=== PATIENT | female | born 1955 | race Caucasian/White ===

== ENCOUNTER 2019-09-27 06:00 | Outpatient (RCR) | payer MEDICARE, SELFPAY | END 2019-10-27 00:01 | LOC: SPT 06:00 | PROVIDERS: Family Provider Nurse Practitioner Family; Visit Provider Internal Medicine Medical Oncology | DX: I97.2 Postmastectomy lymphedema syndrome (principal) | CPT/HCPCS: 97140 ×10 ==

== ENCOUNTER 2019-10-28 13:47 | Outpatient (RCR) | payer MEDICARE, SELFPAY | END 2019-11-27 23:59 | disposition home or self-care (01) | LOC: SPT 13:47 | PROVIDERS: Family Provider Nurse Practitioner Family; Visit Provider Internal Medicine Medical Oncology | DX: I97.2 Postmastectomy lymphedema syndrome (principal); L03.113 Cellulitis of right upper limb; C50.111 Malignant neoplasm of central portion of right female breast | CPT/HCPCS: 97140 ==

== ENCOUNTER 2019-11-28 06:00 | Outpatient (RCR) | payer MEDICARE, SELFPAY | END 2019-12-26 23:59 | disposition home or self-care (01) | LOC: SPT 06:00 | PROVIDERS: Family Provider Nurse Practitioner Family; Visit Provider Internal Medicine Medical Oncology | DX: I97.2 Postmastectomy lymphedema syndrome (principal); L03.113 Cellulitis of right upper limb; C50.111 Malignant neoplasm of central portion of right female breast | CPT/HCPCS: 97140 ==

== ENCOUNTER 2019-12-27 06:00 | Outpatient (RCR) | payer MEDICARE, SELFPAY | END 2020-01-26 23:59 | disposition home or self-care (01) | LOC: SPT 06:00 | PROVIDERS: Family Provider Nurse Practitioner Family; Visit Provider Internal Medicine Medical Oncology | DX: I97.2 Postmastectomy lymphedema syndrome (principal); L03.113 Cellulitis of right upper limb; C50.111 Malignant neoplasm of central portion of right female breast | CPT/HCPCS: 97140 ==

== ENCOUNTER 2020-01-27 06:00 | Outpatient (RCR) | payer MEDICARE, SELFPAY | END 2020-02-25 23:59 | disposition home or self-care (01) | LOC: SPT 06:00 | PROVIDERS: Family Provider Nurse Practitioner Family; Visit Provider Internal Medicine Medical Oncology | DX: I97.2 Postmastectomy lymphedema syndrome (principal); L03.113 Cellulitis of right upper limb; C50.111 Malignant neoplasm of central portion of right female breast | CPT/HCPCS: 97140 ==

== ENCOUNTER 2020-02-26 06:00 | Outpatient (RCR) | payer MEDICARE, SELFPAY | END 2020-03-27 23:59 | disposition home or self-care (01) | LOC: SPT 06:00 | PROVIDERS: Family Provider Nurse Practitioner Family; Visit Provider Internal Medicine Medical Oncology | DX: I97.2 Postmastectomy lymphedema syndrome (principal); L03.113 Cellulitis of right upper limb; C50.111 Malignant neoplasm of central portion of right female breast | CPT/HCPCS: 97140 ==

== ENCOUNTER 2020-03-28 06:00 | Outpatient (RCR) | payer MEDICARE, SELFPAY | END 2020-04-26 23:59 | disposition home or self-care (01) | LOC: SPT 06:00 | PROVIDERS: PCP Nurse Practitioner Family; Visit Provider Internal Medicine Medical Oncology | DX: I97.2 Postmastectomy lymphedema syndrome (principal); L03.113 Cellulitis of right upper limb; C50.111 Malignant neoplasm of central portion of right female breast | CPT/HCPCS: 97140 ==

== ENCOUNTER 2020-04-27 06:00 | Outpatient (RCR) | payer MEDICARE, SELFPAY | END 2020-05-27 23:59 | disposition home or self-care (01) | LOC: SPT 06:00 | PROVIDERS: PCP Nurse Practitioner Family; Visit Provider Internal Medicine Medical Oncology | DX: C50.111 Malignant neoplasm of central portion of right female breast (principal); L03.113 Cellulitis of right upper limb; I97.2 Postmastectomy lymphedema syndrome | CPT/HCPCS: 97140 ==

== ENCOUNTER 2020-06-01 16:26 | Outpatient (RCR) | payer MEDICARE, SELFPAY | END 2020-06-27 23:59 | disposition home or self-care (01) | LOC: SPT 16:26 | PROVIDERS: PCP Nurse Practitioner Family; Visit Provider Internal Medicine Medical Oncology | DX: I97.2 Postmastectomy lymphedema syndrome (principal) | CPT/HCPCS: 97140 ==

== ENCOUNTER 2020-06-28 06:00 | Outpatient (RCR) | payer MEDICARE, SELFPAY | END 2020-07-27 23:59 | disposition home or self-care (01) | LOC: SPT 06:00 | PROVIDERS: PCP Nurse Practitioner Family; Visit Provider Internal Medicine Medical Oncology | DX: I97.2 Postmastectomy lymphedema syndrome (principal); L03.113 Cellulitis of right upper limb; C50.111 Malignant neoplasm of central portion of right female breast | CPT/HCPCS: 97140 ==

== ENCOUNTER 2021-12-18 13:37 | Outpatient (CLI) | payer MEDICARE, SELFPAY ==
[2021-12-18 14:09] LABS: Basophils # 0.1 10^3/uL (0.0-0.1); Basophils % 0.3 %; Eosinophils # 0.2 10^3/uL (0.0-0.8); Eosinophils % 1.2 %; Hematocrit 42.2 % (37.0-47.0); Hemoglobin 13.5 g/dL (11.5-15.3); Lymphocytes # 3.1 10^3/uL (0.8-4.8); Mean Corpuscular Hemoglobin 27.8 pg (28.0-34.0); Mean Corpuscular Volume 86.8 fl (81-99); Monocytes # 0.9 10^3/uL (0.2-0.9); Monocytes % 5.7 %; Neutrophils # 10.66 10^3/uL (1.8-7.7); Neutrophils % 71.5 %; Nucleated Red Blood Cells % 0 %; Platelet Count 259 10^3/cmm (130-400); Red Blood Count 4.86 10^6/uL (4.1-5.3); Red Cell Distribution Width 13.2 % (12.1-15.1); White Blood Count 14.9 10^3/uL (4.0-10.0)
[2021-12-18 14:28] LABS: Alanine Aminotransferase 19 U/L (0-33); Albumin Level 4.5 g/dL (3.5-5.2); Alkaline Phosphatase 174 IU/L (35-105); Aspartate Amino Transferase 24 U/L (0-32); Blood Urea Nitrogen 19 mg/dL (8-23); Calcium 9.8 mg/dL (8.5-10.5); Carbon Dioxide 23 mmol/L (22-29); Chloride 101 mmol/L (98-107); Globulin 2.7 g/dL (1.3-4.6); Glomerular Filtration Rate 71.5 mL/min (90-130); Glucose 134 mg/dL (65-115); Osmolality Calculated 286 mOsm/kg (285-295); Sodium 136 mmol/L (136-145); Total Bilirubin 0.3 mg/dL (0.15-1.2); Total Protein 7.2 g/dL (6.6-8.7)
[2021-12-18 14:31] LABS: Anion Gap 16.4 (5-19); Potassium 4.4 mmol/L (3.5-5.1)
[2021-12-18] MEDS: sodium chloride 0.9% (100 ml) 100 ML 150 ML (14:51)
--- NOTE | 2021-12-19 16:23 | ONC FU_ITS ---
Dr. Bob Patient Follow-Up Note Patient: Karolina Sears Unit #: [id number]: 1955 Dicatated By: Anders Bob M.D.Date of Visit:Dec 18, 2021 Onc Med Follow-up/Prog Note Chief Complaint: Breast cancer and right arm swelling. 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 She was diagnosed with a ER/NH positive, HER-2/sammy negative multifocal inflammatory right breast carcinoma in November of 2011. She underwent neoadjuvant chemotherapy with dose dense Adriamycin/cyclophosphamide followed by paclitaxel under the care of Dr. Skelton in [facility]. On 07/04/2012 she was taken to OR for right modified radical mastectomy by Dr. Banegas. Her surgical pathology revealed residual multifocal carcinoma with the largest focus of 2.1 cm, involving skin, dermal lymphatics, and perineural invasion. Margins were negative. There was involvement in 2 out of 21 lymph nodes harvested, thus stage IIIB (ypT4b, ypN1a, M0). She subsequently completed 6000 cGy adjuvant radiation treatment in 30 fractions on 10/01/2012. Following the radiation treatment she had delayed reconstruction, but with multiple complications. The reconstructive further surgeries included right BAKARI flap surgery in March 2013, right breast implant placement and a left mastopexy in June 2013, right nipple reconstruction in November of 2013, and a right breast revision with a fat grafting in March of 2014. She began hormonal therapy with exemestane in August of 2012, complicated with significant arthralgias. Her treatment was subsequently switched to anastrozole 1 mg daily in January 2013. She was first seen by Dr. Rico on 10/08/2014. Her tumor markers were not elevated at CA 15-3 18.8, CA 27-29 34.9. She continued anastrozole. An MRI of the head on 10/27/2014 showed no evidence of metastatic disease, although it was performed without contrast as patient reported IV contrast allergy. Chest x-ray showed increased interstitial markings in the right upper lobe on 10/25/2014. Followup DEXA showed worsening osteopenia, T score of -2.2. She had significant vitamin D deficiency. For worsening osteopenia she received Prolia in April 2015, complicated with severe rash. She began treatment with Fosamax following her office visit in February 2017. I had seen her for a scheduled follow-up visit on 04/02/2018. At that point she had completed 5 years of adjuvant hormonal therapy with no evidence of recurrence of the breast cancer. As she was still at significant risk for recurrence of her breast cancer and as she was tolerating the anastrozole well, I had recommended that she continue her treatment. However, in September 2018 the anastrozole was stopped due to a skin eruption. She then began a trial of therapy with tamoxifen, but it also had to be stopped due to side effects. She was then followed on observation/expectant management. As of her scheduled visit on 02/03/2019 she was doing well clinically with no evidence of recurrence of the breast cancer. In June 2019 she was seen with evidence of cellulitis in the right arm, which was successfully managed with outpatient IV antibiotic therapy (ertapenem). There was no evidence of recurrence of the breast cancer. She is seen today for an unplanned visit. She had called this morning with complaints of recurrent swelling and redness in the right arm. It first started around 6 PM last evening. She has been having pain in the right arm and axillary area. She did not record her temperature, but she felt warm and she has had intermittent chills and sweating. Her energy generally has been pretty good, and she has had normal activity. ECOG score is 0. Her appetite has been good. She otherwise has not had fever, night sweats, or hot flashes. She has not had sore mouth or throat. She recently had a cough attributable to a slight cold, but that is getting better. She does not complain of shortness of breath or chest pain. She has no GI or complaints. She also reports having some pain in the low back and hip joints, but she has had that off and on for at least a month. She has had a slight headache today. She has no focal neurologic symptoms. Medications: Alendronate Sodium 1 Tablet (of 70 mg) Oral q 1 week, Collagen 2 tsp Powder Topical daily, Multivitamins 1 Capsule Oral daily, [place] 3 1 Capsule Oral daily, silver salt 1 tbsp Liquid every am, Simvastatin 1 Tablet (of 10 mg) Oral at bedtime, Vitamin D 1 Capsule Oral daily Allergies: Gabapentin, Morphine, PCN, and Wheat and Soy. Vital Signs: Performed on Dec 18, 2021 15:34 Height - 60.00 in Temperature - 99.0 F (HIGH) Pulse - 85 /min Respiration - 17 /min BP - 120/69 mm(hg) O2 Sat - 97 % Pain - 0 Fatigue - 0 Performed on Dec 18, 2021 14:45 Height - 60.00 in Temperature - 99.6 F (HIGH) Pulse - 88 /min Respiration - 16 /min BP - 121/70 mm(hg) O2 Sat - 98 % Pain - 9 Fatigue - 3 Physical Examination: Constitutional - She does not appear acutely ill, Eyes - Sclerae nonicteric. Conjunctivae clear, ENMT - No lesions noted in the oral cavity, Hematologic/Lymphatic - No cervical or clavicular adenopathy, Respiratory - Lungs sound clear with good air movement bilaterally, Cardiovascular - Heart rhythm is regular. There is a no murmur, gallop, or rub noted, Breasts - There is some tenderness in the right chest wall and axillary area. There is swelling and erythema of the right arm extending down to the hand. There is no axillary adenopathy, Abdomen - Soft. Liver and spleen are not enlarged. There is no abdominal mass or ascites noted and there is no inguinal adenopathy, Extremities - There is no lower extremity edema, Neurologic - No focal neurologic deficits noted. Lab/Imaging: CBC shows elevated white blood cell count at 14,900 with hemoglobin 13.5 g and platelet count 259,000. Comprehensive metabolic profile shows normal renal function with BUN nineteen and creatinine 0.8 mg/dL. Alkaline phosphatase is mildly elevated at 174/105 IUs/L. The bilirubin and the other liver enzymes are normal. Problem List: 1. Multifocal inflammatory carcinoma of the right breast, stage IIIB (ypT4b, ypN1a, M0), ER/NH positive and HER-2/sammy negative. 2. During follow-up she has required treatment for postmastectomy lymphedema/cellulitis of the right arm. 3. Osteopenia. 4. Vitamin D deficiency. Problems Addressed with this Encounter and Plan: 1. 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 She underwent neoadjuvant chemotherapy with dose dense Adriamycin/cyclophosphamide followed by paclitaxel. She underwent right modified radical mastectomy on 07/04/2012. She was then given radiation to the right chest wall, completed in September of 2012 to 6000 cGy. She began hormonal therapy with exemestane in August of 2012. It was subsequently changed to anastrozole 1 mg daily in January 2013 due to joint pain. As of March 2018 she had completed 5 years of adjuvant hormonal therapy with anastrozole with no evidence of recurrence of the breast cancer. As she was still at significant risk and she was tolerating it well, I did have her continue extended adjuvant hormonal therapy. However, the anastrozole was stopped in September 2018 due to development of skin eruption. She then began further adjuvant hormonal therapy with tamoxifen, but it was stopped within a short time due to multiple side effects. She was then followed on observation/expectant management. Thus far during follow-up there has been no evidence of recurrence of the breast cancer. 2. During follow-up she has required treatment for postmastectomy lymphedema/cellulitis of the right arm. She presents now with acute erythema and swelling of the right arm, consistent with recurrent cellulitis. She will again be treated with IV ertapenem, 1 g daily. She will be transitioned to oral antibiotic therapy with clinical evidence of sufficient response. Signed By: Anders Bob M.D. <<Signature on File>>
== END 2021-12-18 13:38 | disposition home or self-care (01) ==
PROVIDERS: PCP Nurse Practitioner Family; Visit Provider Internal Medicine Medical Oncology
DX: C50.811 Malignant neoplasm of overlapping sites of right female breast (principal); Z17.0 Estrogen receptor positive status [ER+]; Z90.11 Acquired absence of right breast and nipple; M85.80 Other specified disorders of bone density and structure, unspecified site; E55.9 Vitamin D deficiency, unspecified; Z79.899 Other long term (current) drug therapy; Z79.818 Long term (current) use of other agents affecting estrogen receptors and estrogen levels; Z79.2 Long term (current) use of antibiotics
CPT/HCPCS: 80053; 85025; 96365; 99215; J1335

== ENCOUNTER 2021-12-19 13:50 | Outpatient (CLI) | payer MEDICARE, SELFPAY | END 2021-12-19 13:51 | disposition home or self-care (01) | LOC: ONCMED 13:52 | PROVIDERS: PCP Nurse Practitioner Family; Visit Provider Internal Medicine Medical Oncology | DX: I97.2 Postmastectomy lymphedema syndrome (principal); L03.113 Cellulitis of right upper limb; C50.111 Malignant neoplasm of central portion of right female breast; Z90.11 Acquired absence of right breast and nipple; Z92.3 Personal history of irradiation; Z79.899 Other long term (current) drug therapy | CPT/HCPCS: 96365; J1335 ==

== ENCOUNTER 2021-12-20 09:51 | Outpatient (CLI) | payer MEDICARE, SELFPAY | END 2021-12-20 09:52 | disposition home or self-care (01) | LOC: ONCMED 09:56 | PROVIDERS: PCP Nurse Practitioner Family; Visit Provider Internal Medicine Medical Oncology | DX: I97.2 Postmastectomy lymphedema syndrome (principal); L03.113 Cellulitis of right upper limb; C50.111 Malignant neoplasm of central portion of right female breast; Z90.11 Acquired absence of right breast and nipple; Z92.3 Personal history of irradiation; Z79.899 Other long term (current) drug therapy | CPT/HCPCS: 96365; J1335 ==

== ENCOUNTER 2021-12-24 10:00 | Outpatient (RCR) | payer MEDICARE, SELFPAY ==
[2021-12-21] MEDS: ertapenem 1,000 MG in sodium chloride 0.9% (plus) 100 ML 200 MG IV (09:37)
[2021-12-21 09:45] VITALS: BP 141/88; PULSE 80; RESP 18; TEMP 36.5; O2SAT 98
[2021-12-22 09:42] VITALS: BP 138/71; PULSE 109; RESP 18; TEMP 36.2; O2SAT 96
[2021-12-23 10:19] VITALS: BP 146/78; PULSE 77; RESP 16; TEMP 36.2; O2SAT 100
[2021-12-24 10:06] VITALS: BP 135/94; PULSE 98; RESP 16; TEMP 36.8; O2SAT 99
== END 2021-12-25 23:59 | disposition home or self-care (01) ==
LOC: GILAB 10:00
PROVIDERS: PCP Nurse Practitioner Family; Visit Provider Internal Medicine Medical Oncology
DX: I97.2 Postmastectomy lymphedema syndrome (principal); L03.113 Cellulitis of right upper limb; C50.111 Malignant neoplasm of central portion of right female breast; Z90.11 Acquired absence of right breast and nipple; Z92.3 Personal history of irradiation
CPT/HCPCS: 96365; J1335

== ENCOUNTER 2022-01-01 08:13 | Outpatient (CLI) | payer MEDICARE, SELFPAY ==
--- NOTE | 2022-01-01 10:57 | ONC FU_ITS ---
Dr. Bob Patient Follow-Up Note Patient: Karolina Sears Unit #: [id number]: 1955 Dicatated By: Anders Bob M.D.Date of Visit:Jan 01, 2022 Onc Med Follow-up/Prog Note Chief Complaint: Breast cancer/left hip pain. 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 She was diagnosed with a ER/WV positive, HER-2/sammy negative multifocal inflammatory right breast carcinoma in November of 2011. She underwent neoadjuvant chemotherapy with dose dense Adriamycin/cyclophosphamide followed by paclitaxel under the care of Dr. Skelton in [facility]. On 07/04/2012 she was taken to OR for right modified radical mastectomy by Dr. Banegas. Her surgical pathology revealed residual multifocal carcinoma with the largest focus of 2.1 cm, involving skin, dermal lymphatics, and perineural invasion. Margins were negative. There was involvement in 2 out of 21 lymph nodes harvested, thus stage IIIB (ypT4b, ypN1a, M0). She subsequently completed 6000 cGy adjuvant radiation treatment in 30 fractions on 10/01/2012. Following the radiation treatment she had delayed reconstruction, but with multiple complications. The reconstructive further surgeries included right BAKARI flap surgery in March 2013, right breast implant placement and a left mastopexy in June 2013, right nipple reconstruction in November of 2013, and a right breast revision with a fat grafting in March of 2014. She began hormonal therapy with exemestane in August of 2012, complicated with significant arthralgias. Her treatment was subsequently switched to anastrozole 1 mg daily in January 2013. She was first seen by Dr. Rico on 10/08/2014. Her tumor markers were not elevated at CA 15-3 18.8, CA 27-29 34.9. She continued anastrozole. An MRI of the head on 10/27/2014 showed no evidence of metastatic disease, although it was performed without contrast as patient reported IV contrast allergy. Chest x-ray showed increased interstitial markings in the right upper lobe on 10/25/2014. Followup DEXA showed worsening osteopenia, T score of -2.2. She had significant vitamin D deficiency. For worsening osteopenia she received Prolia in April 2015, complicated with severe rash. She began treatment with Fosamax following her office visit in February 2017. I had seen her for a scheduled follow-up visit on 04/02/2018. At that point she had completed 5 years of adjuvant hormonal therapy with no evidence of recurrence of the breast cancer. As she was still at significant risk for recurrence of her breast cancer and as she was tolerating the anastrozole well, I had recommended that she continue her treatment. However, in September 2018 the anastrozole was stopped due to a skin eruption. She then began a trial of therapy with tamoxifen, but it also had to be stopped due to side effects. She was then followed on observation/expectant management. As of her scheduled visit on 02/03/2019 she was doing well clinically with no evidence of recurrence of the breast cancer. In June 2019 she was seen with evidence of cellulitis in the right arm, which was successfully managed with outpatient IV antibiotic therapy (ertapenem). There was no evidence of recurrence of the breast cancer. On 12/18/2021 she returned with another acute episode of cellulitis in the right chest wall and right arm. Associated with that illness, there was significant worsening of the lymphedema in her right arm. She was again treated with outpatient IV antibiotic therapy with ertapenem. She is seen now for a follow-up visit. The cellulitis improved on the antibiotic therapy, but she continues to have significant swelling and discomfort in the right arm. Her main complaint today is that she has developed horrific pain in her left hip which radiates all the way down her left leg. She is having a little tingling in the left leg as well. Her hip pain does seem to localize to the sacroiliac area. She has no other joint or bone pain, and she has otherwise been feeling good generally. Medications: Alendronate Sodium 1 Tablet (of 70 mg) Oral q 1 week, Collagen 2 tsp Powder Topical daily, Multivitamins 1 Capsule Oral daily, [place] 3 1 Capsule Oral daily, silver salt 1 tbsp Liquid every am, Simvastatin 1 Tablet (of 10 mg) Oral at bedtime, Vitamin D 1 Capsule Oral daily Allergies: Gabapentin, Morphine, PCN, and Wheat and Soy. Vital Signs: Performed on Jan 01, 2022 08:29 Height - 60.00 in Weight - 136.8 lbs (LOW) BSA - 1.59 sq.m BMI - 26.72 Temperature - 99.0 F (HIGH) Pulse - 116 /min (HIGH) Respiration - 20 /min BP - 169/91 mm(hg) (HIGH) O2 Sat - 98 % Pain - 9 Fatigue - 5 Physical Examination: Constitutional - She looks pretty good generally, Eyes - Sclerae nonicteric. Conjunctivae clear, ENMT - No lesions noted in the oral cavity, Hematologic/Lymphatic - No cervical, clavicular, or axillary adenopathy, Respiratory - Lungs sound clear with good air movement bilaterally, Cardiovascular - Heart rhythm is regular. There is a no murmur, gallop, or rub noted, Abdomen - Soft. Liver and spleen are not enlarged. There is no abdominal mass or ascites noted and there is no inguinal adenopathy, Extremities - There is significant lymphedema of the right arm. There is no lower extremity edema, Integumentary - There has been complete resolution of the right chest wall and right arm erythema, Neurologic - No focal neurologic deficits noted. Lab/Imaging: Test performed on Dec 18, 2021 14:00 Sodium 136 mmol/L Potassium 4.4 mmol/L Chloride 101 mmol/L CO2 23 mmol/L Anion Gap 16.4 BUN 19 mg/dL Creatinine 0.8 mg/dL Cr Clearance (Est) 70.2700 mL/min eGFR 71.5 mL/min Glucose 134 mg/dL Osmolality - Calculated 286 mOsm/kg Calcium 9.8 mg/dL Protein, Total 7.2 g/dL Albumin 4.5 g/dL Globulin 2.7 g/dL Bilirubin, Total 0.3 mg/dL ALT (SGPT) 19 U/L AST (SGOT) 24 U/L Alkaline Phosphatase 174 IU/L WBC 14.9 10 3/uL RBC 4.86 10 6/uL HGB 13.5 g/dL HCT 42.2 % MCV 86.8 fl MCH 27.8 pg MCHC 32.0 g/dL RDW 13.2 % Platelet Count 259 10 3/cmm MPV 11.0 fL Neutrophils 10.66 10 3/uL Lymphocytes 3.1 10 3/uL Monocytes 0.9 10 3/uL Eosinophils 0.2 10 3/uL Basophils 0.1 10 3/uL Neutrophil % 71.5 % Lymphocyte % 21.0 % Monocyte % 5.7 % Eosinophil % 1.2 % Basophils % 0.3 % NRBC % 0 % Problem List: 1. Multifocal inflammatory carcinoma of the right breast, stage IIIB (ypT4b, ypN1a, M0), ER/[place] positive and HER-2/sammy negative. 2. During follow-up she has required treatment for postmastectomy lymphedema/cellulitis of the right arm. 3. Osteopenia. 4. Vitamin D deficiency. Problems Addressed with this Encounter and Plan: 1. 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 She underwent neoadjuvant chemotherapy with dose dense Adriamycin/cyclophosphamide followed by paclitaxel. She underwent right modified radical mastectomy on 07/04/2012. She was then given radiation to the right chest wall, completed in September of 2012 to 6000 cGy. She was given adjuvant hormonal therapy, initially with exemestane and subsequently with anastrozole. It was eventually stopped in September 2018 due to skin eruption. Thus far during follow-up there has been no evidence of recurrence of the breast cancer. 2. During follow-up she has required treatment for postmastectomy lymphedema of the right arm, and she has had occasional episodes of cellulitis, most recently on 12/18/2021. The cellulitis has resolved on antibiotic therapy with ertapenem. There has been some increase in lymphedema with this episode, and she will now be scheduled to see physical therapy for lymphedema management. 3. She has recent onset of pretty severe pain in the left sciatic area rating down the left leg. Clinically this appears consistent with acute sciatica. She will be treated with meloxicam 15 mg daily and she also will be given a prescription for hydrocodone 5/APAP 325 to take as needed. I will ask physical therapy to also address that issue. Signed By: Anders Bob M.D. <<Signature on File>>
== END 2022-01-01 08:14 | disposition home or self-care (01) ==
LOC: ONCMED 08:19
PROVIDERS: PCP Nurse Practitioner Family; Visit Provider Internal Medicine Medical Oncology
DX: Z85.3 Personal history of malignant neoplasm of breast (principal); I97.2 Postmastectomy lymphedema syndrome; M85.80 Other specified disorders of bone density and structure, unspecified site; E55.9 Vitamin D deficiency, unspecified; L03.113 Cellulitis of right upper limb; M54.32 Sciatica, left side; Z79.899 Other long term (current) drug therapy
CPT/HCPCS: 99214

== ENCOUNTER 2022-01-04 06:00 | Outpatient (RCR) | payer MEDICARE, SELFPAY | END 2022-01-25 23:59 | disposition home or self-care (01) | LOC: SPT 06:00 | PROVIDERS: PCP Nurse Practitioner Family; Referring Provider Internal Medicine Medical Oncology; Visit Provider Internal Medicine Medical Oncology | DX: I89.0 Lymphedema, not elsewhere classified (principal); M54.30 Sciatica, unspecified side | CPT/HCPCS: 97012; 97110; 97140; 97162; G0283 ==

== ENCOUNTER 2022-01-23 15:07 | Outpatient (CLI) | payer MEDICARE, SELFPAY ==
--- NOTE | 2022-01-24 07:33 | ONC FU_ITS ---
Dr. Bob Patient Follow-Up Note Patient: Karolina Sears Unit #: [id number]: 1955 Dicatated By: Anders Bob M.D.Date of Visit:Jan 23, 2022 Onc Med Follow-up/Prog Note Chief Complaint: Breast cancer/left hip pain. 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 She was diagnosed with a ER/MT positive, HER-2/sammy negative multifocal inflammatory right breast carcinoma in November of 2011. She underwent neoadjuvant chemotherapy with dose dense Adriamycin/cyclophosphamide followed by paclitaxel under the care of Dr. Skelton in [facility]. On 07/04/2012 she was taken to OR for right modified radical mastectomy by Dr. Banegas. Her surgical pathology revealed residual multifocal carcinoma with the largest focus of 2.1 cm, involving skin, dermal lymphatics, and perineural invasion. Margins were negative. There was involvement in 2 out of 21 lymph nodes harvested, thus stage IIIB (ypT4b, ypN1a, M0). She subsequently completed 6000 cGy adjuvant radiation treatment in 30 fractions on 10/01/2012. Following the radiation treatment she had delayed reconstruction, but with multiple complications. The reconstructive further surgeries included right BAKARI flap surgery in March 2013, right breast implant placement and a left mastopexy in June 2013, right nipple reconstruction in November of 2013, and a right breast revision with a fat grafting in March of 2014. She began hormonal therapy with exemestane in August of 2012, complicated with significant arthralgias. Her treatment was subsequently switched to anastrozole 1 mg daily in January 2013. She was first seen by Dr. Rico on 10/08/2014. Her tumor markers were not elevated at CA 15-3 18.8, CA 27-29 34.9. She continued anastrozole. An MRI of the head on 10/27/2014 showed no evidence of metastatic disease, although it was performed without contrast as patient reported IV contrast allergy. Chest x-ray showed increased interstitial markings in the right upper lobe on 10/25/2014. Followup DEXA showed worsening osteopenia, T score of -2.2. She had significant vitamin D deficiency. For worsening osteopenia she received Prolia in April 2015, complicated with severe rash. She began treatment with Fosamax following her office visit in February 2017. I had seen her for a scheduled follow-up visit on 04/02/2018. At that point she had completed 5 years of adjuvant hormonal therapy with no evidence of recurrence of the breast cancer. As she was still at significant risk for recurrence of her breast cancer and as she was tolerating the anastrozole well, I had recommended that she continue her treatment. However, in September 2018 the anastrozole was stopped due to a skin eruption. She then began a trial of therapy with tamoxifen, but it also had to be stopped due to side effects. She was then followed on observation/expectant management. As of her scheduled visit on 02/03/2019 she was doing well clinically with no evidence of recurrence of the breast cancer. In June 2019 she was seen with evidence of cellulitis in the right arm, which was successfully managed with outpatient IV antibiotic therapy (ertapenem). There was no evidence of recurrence of the breast cancer. On 12/18/2021 she returned with another acute episode of cellulitis in the right chest wall and right arm. Associated with that illness, there was significant worsening of the lymphedema in her right arm. She was again treated with outpatient IV antibiotic therapy with ertapenem. At her follow-up visit on 01/01/2022 there was significant improvement in the cellulitis, and the lymphedema also was showing some improvement. However, at that point she had developed significant pain in the left hip area rating down the left leg. The hip pain appeared to localize to the sciatic area, and I had suspected that it was due to sacroiliitis. She began treatment with meloxicam 15 mg daily. She also was given a prescription for hydrocodone/APAP to take as needed. She is seen for a follow-up visit. She has been getting physical therapy for the lymphedema, and it has continued to gradually improve. She is still having some pain in the left hip/left leg, described mostly as a dull ache, though it does intensify when she is lying in bed at night. She has been getting some benefit with physical therapy, and it seems more likely now that it may be a radicular pain as opposed to a sacroiliac pain. She is still taking some pain medication, but she has been able to cut down the hydrocodone/APAP to 3 tablets/day. Medications: Alendronate Sodium 1 Tablet (of 70 mg) Oral q 1 week, Collagen 2 tsp Powder Topical daily, Multivitamins 1 Capsule Oral daily, [place] 3 1 Capsule Oral daily, silver salt 1 tbsp Liquid every am, Simvastatin 1 Tablet (of 10 mg) Oral at bedtime, Vitamin D 1 Capsule Oral daily Allergies: Gabapentin, Morphine, PCN, and Wheat and Soy. Vital Signs: Performed on Jan 23, 2022 15:22 Height - 60.00 in Weight - 136.8 lbs BSA - 1.59 sq.m BMI - 26.72 Temperature - 96.9 F (LOW) Pulse - 78 /min Respiration - 15 /min BP - 127/83 mm(hg) O2 Sat - 98 % Pain - 5 Fatigue - 0 Physical Examination: Constitutional - She looks pretty good generally, Extremities - There is some residual lymphedema of the right arm, but it has improved, and the erythema has resolved. There is no lower extremity edema, Neurologic - There is no focal neurologic deficit. Problem List: 1. Multifocal inflammatory carcinoma of the right breast, stage IIIB (ypT4b, ypN1a, M0), ER/MT positive and HER-2/sammy negative. 2. During follow-up she has required treatment for postmastectomy lymphedema/cellulitis of the right arm. 3. Osteopenia. 4. Vitamin D deficiency. Problems Addressed with this Encounter and Plan: 1. 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 She underwent neoadjuvant chemotherapy with dose dense Adriamycin/cyclophosphamide followed by paclitaxel. She underwent right modified radical mastectomy on 07/04/2012. She was then given radiation to the right chest wall, completed in September of 2012 to 6000 cGy. She was given adjuvant hormonal therapy, initially with exemestane and subsequently with anastrozole. It was eventually stopped in September 2018 due to skin eruption. Thus far during follow-up there has been no evidence of recurrence of the breast cancer. 2. During follow-up she has required treatment for postmastectomy lymphedema of the right arm, and she has had occasional episodes of cellulitis, most recently on 12/18/2021. The cellulitis has resolved on antibiotic therapy with ertapenem. She is now continuing physical therapy for the lymphedema, which is showing gradual improvement. 3. She had recent onset of pretty severe pain in the left sciatic area rating down the left leg. I had initially suspected that she had acute sciatica. She has been showing some improvement on treatment with meloxicam 15 mg daily, hydrocodone 5/APAP 325 as needed, and physical therapy, though it does seem more likely now that it may be a radicular pain. At least for now she will continue with her same management. I will see her for a follow-up visit in 1 month, and she will then have further evaluation as indicated. Signed By: Anders Bob M.D. <<Signature on File>>
== END 2022-01-23 15:08 | disposition home or self-care (01) ==
PROVIDERS: PCP Family Medicine; Visit Provider Internal Medicine Medical Oncology
DX: Z85.3 Personal history of malignant neoplasm of breast (principal); I97.2 Postmastectomy lymphedema syndrome; Y83.8 Other surgical procedures as the cause of abnormal reaction of the patient, or of later complication, without mention of misadventure at the time of the procedure; M85.80 Other specified disorders of bone density and structure, unspecified site; E55.9 Vitamin D deficiency, unspecified; Z79.899 Other long term (current) drug therapy
CPT/HCPCS: G0463

== ENCOUNTER 2022-01-26 06:00 | Outpatient (RCR) | payer MEDICARE, SELFPAY | END 2022-02-24 23:59 | disposition home or self-care (01) | LOC: SPT 06:00 | PROVIDERS: PCP Family Medicine; Referring Provider Internal Medicine Medical Oncology; Visit Provider Internal Medicine Medical Oncology | DX: I89.0 Lymphedema, not elsewhere classified (principal); M54.32 Sciatica, left side | CPT/HCPCS: 97012; 97110; 97140; 97760 ==

== ENCOUNTER 2022-01-31 13:28 | Outpatient (CLI) | payer MEDICARE, SELFPAY ==
--- NOTE | 2022-01-31 13:39 | XR_ITS ---
WS: [id number] XR lumbar spine 2-3V* [id number] REASON FOR EXAM: BREAST CANCER/PAIN IN LEG HIP LEFT LEG FINDINGS: Mottled destructive process in the L3 vertebral body with pathologic compression fracture of the post erior aspect of the vertebral body altering the normal lordosis of the lumbar spine. This mottled dashawn tructive process also involves the L2 vertebral body. The posterior elements of L2-L3 and possibly L4 are also involved. XR/XR lumbar spine 2-3V* [id number] IMPRESSION: Multiple destructive process involving the lumbar spine as above. Correlated wi th clinical history this most likely represents metastatic breast cancer.
--- NOTE | 2022-01-31 13:39 | XR_ITS ---
WS: [id number] XR hip LT 2-3V wo/w pel* [id number] REASON FOR EXAM: L BREAST CANCER/PAIN IN LEFT HIP L LEG FINDINGS: Mild to moderate narrowing of the joint space with mild subchondral sclerosis. Symmetric to the right hip. No fracture or focal bone abnormality. No findings suggestive of metastatic disease. No soft tissue abnormality. XR/XR hip LT 2-3V wo/w pel* [id number] IMPRESSION: Mild changes of osteoarthritis with no other significant abnormality.
== END 2022-01-31 13:29 | disposition home or self-care (01) ==
LOC: RAD 13:30
PROVIDERS: PCP Family Medicine; Visit Provider Internal Medicine Medical Oncology
DX: C50.111 Malignant neoplasm of central portion of right female breast (principal); M25.552 Pain in left hip; M79.605 Pain in left leg
CPT/HCPCS: 72100; 73502

== ENCOUNTER 2022-02-06 13:24 | Outpatient (CLI) | payer MEDICARE, SELFPAY ==
--- NOTE | 2022-02-06 13:34 | MR_ITS ---
WS: [id number] MRI LUMBAR SPINE WITH CONTRAST TECHNIQUE: Sagittal T1, T2 and STIR imaging. Axial T1 and T2 imaging. Post gadolinium imaging was obt ained. CLINICAL INFORMATION: BREAST CANCER, ABNORMAL L SPINE XRAY COMPARISON: Radiograph January 31, 2022 FINDINGS: Pathologic compression with posterior wedging of the L3 vertebral body. Loss of approximately 20% delfino tebral body height. Exaggeration of the normal lumbar lordosis at this level. Diffuse replacement normal bone marrow signal involving the L3 vertebral body extending into the post erior elements with enhancement. Additional bone marrow infiltration with enhancement involving the L 2 L4 and L5 vertebral bodies. This extends into the posterior elements at these levels. Involvement o f the posterior elements at the L1 level. Additional enhancing metastatic disease involving the LEFT S1, S2, S3 vertebral bodies extending into the posterior elements. Enhancing paravertebral and epidur al disease worse at the L3 level eccentric to the LEFT. Impingement LEFT subarticular recess at L3-L4 with mild to moderate central canal stenosis. Enhancement extends into the neural foramen at the inv olved levels worse on the LEFT. L1-L2: Mild annular bulging. Slight effacement of ventral thecal sac. Metastatic disease in the poste rior elements. Foramen are patent. L2-L3: Mild disc bulging with endplate ridging. Mild central canal stenosis with narrowing of the sub articular recess. Circumferential thickening and enhancing epidural disease. Moderate bilateral logan inal narrowing LEFT greater than RIGHT with epidural enhancement. Moderate facet arthropathy. L3-L4: Pathologic compression L3 vertebral body with mild retropulsion eccentric to the LEFT. In comb ination with epidural disease, this results in moderate central canal stenosis. Impingement LEFT suba rticular recess. Moderate facet arthropathy. Moderate bilateral foraminal narrowing LEFT greater than RIGHT. Metastatic disease involves the posterior elements and paravertebral soft tissues. L4-L5: Mild annular bulging with slight effacement of ventral thecal sac. Mild central canal stenosis . Mild LEFT greater than RIGHT foraminal narrowing. Moderate to advanced LEFT facet arthropathy. Enha ncing epidural disease. Enhancing metastatic disease worse in the LEFT posterior vertebral body exten ding into the posterior elements. L5-S1: Enhancing metastatic disease involving the posterior L5 vertebral body extending to the pedicl e and posterior elements. Enhancing epidural disease. Slight impingement on the traversing LEFT S1 ne rve root. Mild LEFT foraminal narrowing. Mild facet arthropathy. Enhancing metastatic disease involves the sacrum eccentric to the LEFT worse involving the S1, S2, S3 vertebral bodies. This extends inferiorly to at least the S3 vertebral body. MR/MR lumbar spine wo/w con [id number] IMPRESSION: 1. Pathologic compression L3 vertebral body with posterior vertebral body wedg ing and loss of 20% vertebral body height. 2. Diffuse enhancing bony metastatic disease worse involving the L3 and L4 delfino tebral bodies extending to the posterior elements. Associated paravertebral and circumferential epidural enhancement about the thecal sac and extending into t he neural foramen. 3. Bony metastatic disease also involves the L1 posterior elements, L2 vertebr al body and posterior elements, L5 vertebral body and posterior elements, and s acrum eccentric to the LEFT extending to approximately S3-S4. 4. Circumferential epidural disease with mild central canal stenosis L2-L3 and moderate central canal stenosis L3-L4 with impingement on the traversing LEFT L4 nerve root. Notified Anders Bob MD at 02/07/2022 9:54 AM.
== END 2022-02-06 13:25 | disposition home or self-care (01) ==
PROVIDERS: PCP Family Medicine; Visit Provider Internal Medicine Medical Oncology
DX: C50.111 Malignant neoplasm of central portion of right female breast (principal); M84.48XA Pathological fracture, other site, initial encounter for fracture; M48.061 Spinal stenosis, lumbar region without neurogenic claudication
CPT/HCPCS: 72158; A9579

== ENCOUNTER 2022-02-27 13:50 | Oncology outpatient (recurring) (ONCR) | payer MEDICARE, SELFPAY ==
[2022-02-27] MEDS: sodium chloride 0.9% 1,000 ML 999 ML IV (14:45)
[2022-02-27] MEDS: ondansetron 2 mg/ML SDV 2 mL 8 MG IVP (14:46)
[2022-02-27 14:57] VITALS: BP 144/82; PULSE 82; RESP 20; TEMP 37.2; O2SAT 98
[2022-02-27] MEDS: HYDROmorphone 1 mg/mL INJ 1 mL 2 MG IVP (15:17)
== END 2022-03-27 23:59 | disposition home or self-care (01) ==
PROVIDERS: PCP Family Medicine; Visit Provider Internal Medicine Medical Oncology
DX: I97.2 Postmastectomy lymphedema syndrome (principal); L03.113 Cellulitis of right upper limb; Z79.899 Other long term (current) drug therapy
CPT/HCPCS: 96360; 96374; 96375; J1100; J1170; J2405; J7030

== ENCOUNTER 2022-03-07 05:49 | Day surgery (SDC) | payer MEDICARE, SELFPAY ==
[2022-03-06 09:55] VITALS: BMI 26.2
[2022-03-07] VITALS (18 sets, daily range): BP systolic 103–158; BP diastolic 63–99; PULSE 94–123; RESP 14–24; TEMP 36.3–37; O2SAT 94–100; BMI 25.0
--- NOTE | 2022-03-07 | XR_ITS ---
WS: [id number] XR lumbar spine 2-3V* [id number] REASON FOR EXAM: dorsalgia FINDINGS: Vertebral plasty via bilateral pedicle cannula placement L2, L3, L4, and L5. Localization of the left intervertebral disc spaces for decompression at L2-L3 and L4-L5. XR/XR lumbar spine 2-3V* [id number] IMPRESSION: Vertebral plasty and lumbar spine localization as above.
--- NOTE | 2022-03-07 | SCC_ITS ---
Procedure done: 1. L2 kyphoplasty 2. L3 kyphoplasty 3. L4 kyphoplasty 4. L5 kyphoplasty 5. L2 spine metastasis radiofrequency ablation 6. L3 spine metastasis radiofrequency ablation 7. L4 spine metastasis radiofrequency ablation 8. L5 spine metastasis radiofrequency ablation 9. L2/3 laminectomy with partial faceectomy 10.L3/4 laminectomy with partial facetectomy 11. L4/5 laminectomy with partial facetectomy 419.9 seconds of fluoroscopic guidance, for a cumulative dose of 95.55 mGy and 209.05 mGy was provided to Dr. De Leon by the radiology department. C-arm images of the lumbar spine were saved for the patient's permanent record. [facility]
--- NOTE | 2022-03-07 06:32 | W.PM.OPSUD ---
Surgery/Procedure H&P Update DATE OF PROCEDURE: March 07, 2022 DATE H&P PERFORMED: 02/13/22 H&P UPDATE INFORMATION: I have reviewed H&P completed within last 30 days, I have examined patient prior to procedure and No changes to prior documentation PREOP DIAGNOSIS: Lumbar rdiculopathy, Bone lesions L2-5 PLANNED PROCEDURE: Operation Date: 03/07/22 07:00 Proposed Procedures p Kyphoplasty L2-L3 andLl5 [id number] m54.9 dorsalgia(Not Applicable) - Torin De Leon DO s Discectomy L2-3,L3-4,L4-5 [id number] m54.9 dorsalgia(Left) - Torin De Leon DO
[2022-03-07] MEDS: sodium chloride 0.9% 1,000 ML 30 ML IV (06:48)
[2022-03-07] MEDS: scopolamine 1.5 Patch 1 PATCH TRANSDERMA (06:52)
[2022-03-07] MEDS: clindamycin 900 MG/50 ML PREMIX 100 MG IV (07:00)
--- NOTE | 2022-03-07 07:16 | ANES.PREANE2 ---
Pre-Anesthetic Assessment Height/Weight: Height 1.52 m Weight 58.202 kg Temp Pulse Resp BP Pulse Ox 97.3 F L 97 16 158/85 98 03/07/22 06:07 03/07/22 06:07 03/07/22 06:07 03/07/22 06:07 03/07/22 06:07 Preop Diagnosis: Lumbar rdiculopathy, Bone lesions L2-5 Operation Date: 03/07/22 07:00 Proposed Procedures p Kyphoplasty L2-L3 andLl5 [id number] m54.9 dorsalgia(Not Applicable) - Torin De Leon DO s Discectomy L2-3,L3-4,L4-5 [id number] m54.9 dorsalgia(Left) - Torin De Leon DO Familial anesthetic complications: None Was Beta Sharon taken within 24 hours: N/A Was Clonidine taken within 24 hours: N/A Last intake: Intake Last Liquid Date 03/06/22 Last Liquid Time 20:00 Last Solid Date 03/06/22 Last Solid Time 19:00 Social No alcohol and No tobacco Exam alert, oriented x 3, clear to auscultation bilaterally and regular rate & rhythm Airway Submandibular: within normal limits Cervical ROM: within normal limits Mallampati: Class II Dentition: full Musc/skel Lower Back Pain and Osteoarthritis/DJD Anesthetic Plan ASA status: 2 Anesthesia: General Medications/Allergies Home Medications Medication Instructions Recorded Confirmed Last Taken Type ondansetron HCl 4 mg tablet 4 mg PO Q6H #120 tab 02/27/22 03/07/22 03/06/22 Rx meloxicam 15 mg tablet 15 mg PO DAILY 03/06/22 03/07/22 03/06/22 History oxycodone 10 mg tablet 10 mg PO QID PRN 03/06/22 03/07/22 03/07/22 History Allergies Allergy/AdvReac Type Severity Reaction Status Date / Time iodine Allergy ADR/ALGY-Fl Verified 03/06/22 09:51 ushing morphine Allergy ADR-Agitate Verified 03/06/22 09:51 d Penicillins Allergy ALGY-Anaphy Verified 03/06/22 09:51 laxis Current Medications Generic Name Dose Route Start Last Admin Trade Name Freq PRN Reason Stop Dose Admin Sodium Chloride 1,000 mls @ 30 mls/hr 03/07/22 06:00 03/07/22 06:48 Sodium Chloride 0.9% IV 03/08/22 05:59 30 mls/hr .Q24H BHUPINDER Administration PFSH Anesthesia Medical History (Updated 02/27/22 @ 14:08 by Anders Bob MD) Malignant neoplasm of central portion of right female breast Secondary malignant neoplasm of bone Social History Smoking and tobacco status: never smoked Data Anesthesia Cardiac Studies: No Data to Display
[2022-03-07] MEDS: iohexol 300 mg/mL 50 mL Btl (OR ONLY) XX (07:43)
--- NOTE | 2022-03-07 09:02 | PC.NURSE ---
CALLED AND LEFT VOICEMAIL WITH FRIEND ABOUT PROCEDURE PROGRESS.
[2022-03-07 09:35] LABS: Hematocrit 35.8 % (37.0-47.0); Hemoglobin 11.5 g/dL (11.5-15.3)
[2022-03-07] MEDS: fentaNYL 50 mcg/mL INJ 2mL IVP ×2 (11:14→11:22)
--- NOTE | 2022-03-07 11:16 | P.OP_ITS ---
Operative Report Date of procedure: March 07, 2022 Pre-op diagnosis: Preop Diagnosis Lumbar rdiculopathy, Bone lesions L2-5 (pathologic wedge compression fracture) Post-op diagnosis: same Procedure done: 1. L2 kyphoplasty 2. L3 kyphoplasty 3. L4 kyphoplasty 4. L5 kyphoplasty 5. L2 spine metastasis radiofrequency ablation 6. L3 spine metastasis radiofrequency ablation 7. L4 spine metastasis radiofrequency ablation 8. L5 spine metastasis radiofrequency ablation 9. L2/3 laminectomy with partial faceectomy 10.L3/4 laminectomy with partial facetectomy 11. L4/5 laminectomy with partial facetectomy Pathology: L3 vetebral body L4 lamina Surgeon: Torin De Leon Estimated blood loss (mL): 500 Procedure: 1. L2 kyphoplasty 2. L3 kyphoplasty 3. L4 kyphoplasty 4. L5 kyphoplasty 5. L2 spine metastasis radiofrequency ablation 6. L3 spine metastasis radiofrequency ablation 7. L4 spine metastasis radiofrequency ablation 8. L5 spine metastasis radiofrequency ablation 9. L2/3 laminectomy with partial faceectomy 10.L3/4 laminectomy with partial facetectomy 11. L4/5 laminectomy with partial facetectomy Patient is brought to the operative suite. After undergoing anesthesia they are placed in the prone position. All areas of impingement are well padded. Patient is then prepped and draped in the normal sterile fashion. Biplanar fluoroscopy was used and brought in. Under fluoroscopic guidance bilateral transpedicular access was obtained to the L2 vertebral body using 11- gauge access needle. This was followed by sizing the ablation zone using the sizing needle and drill. Subsequently using 2 20 mm osteochondral radiofrequency ablation probes ablation was performed for 7-1/2 minutes. After the ablation was completed I placed a coaxial 15 mm balloons creating a cavity. The balloons were removed and I placed a barium impregnated PMMA XP cement into the vertebral body with fluoroscopic visualization. There was no evidence of any leakage. Due to irritation and filling of the vertebral body. The cannulas were removed. Biplanar fluoroscopy was used and brought in. Under fluoroscopic guidance bilateral transpedicular access was obtained to the L3 vertebral body using 11- gauge access needle. This was followed by sizing the ablation zone using the sizing needle and drill. Subsequently using 2 20 mm osteochondral radiofrequency ablation probes ablation was performed for 7-1/2 minutes. After the ablation was completed I placed a coaxial 15 mm balloons creating a cavity. The balloons were removed and I placed a barium impregnated PMMA XP cement into the vertebral body with fluoroscopic visualization. There was no evidence of any leakage. Due to irritation and filling of the vertebral body. The cannulas were removed. Biplanar fluoroscopy was used and brought in. Under fluoroscopic guidance bilateral transpedicular access was obtained to the L4 vertebral body using 11- gauge access needle. This was followed by sizing the ablation zone using the sizing needle and drill. Subsequently using 2 20 mm osteochondral radiofrequency ablation probes ablation was performed for 7-1/2 minutes. After the ablation was completed I placed a coaxial 15 mm balloons creating a cavity. The balloons were removed and I placed a barium impregnated PMMA XP cement into the vertebral body with fluoroscopic visualization. There was no evidence of any leakage. Due to irritation and filling of the vertebral body. The cannulas were removed. Biplanar fluoroscopy was used and brought in. Under fluoroscopic guidance bilateral transpedicular access was obtained to the L5 vertebral body using 11- gauge access needle. This was followed by sizing the ablation zone using the sizing needle and drill. Subsequently using 2 20 mm osteochondral radiofrequency ablation probes ablation was performed for 7-1/2 minutes. After the ablation was completed I placed a coaxial 15 mm balloons creating a cavity. The balloons were removed and I placed a barium impregnated PMMA XP cement into the vertebral body with fluoroscopic visualization. There was no evidence of any leakage on the left side. However on the right sided reached out superior laterally anteriorly. Tracking along the anterior longitudinal ligament. Due to irritation and filling of the vertebral body. The cannulas were removed. The tumor was very vascular large amounts of blood, the tubes as they are placed. Most of the blood loss in this case was during the placement of the tubes. Next attention was brought to doing the decompressions. A skin incision is made over the L4/5 level. This is confirmed under c-arm guidance. A series of dilators are passed and the tubular retractor is docked on the L4 lamina. Tumor was identified at the L4 level. A bovie is used to clear the soft tissue off the lamina and the L 4/5 facet joint. A high speed rylee is then used to perform the laminectomy and take down the medial aspect of the L 4/5 facet joint. A kerrison rongeure was then used to take down the remaining lamina and smooth the edge of the laminectomy up to the point where the ligamentum flavum attaches. Attention was then brought to the medial aspect of the facet joint. The remaining medial aspect of the superior and inferior aspect of the facet joint were taken down with the kerrison from the pedicle of L4 to L 5. The facet joint had significant hypertrophy. Attention was then brought to the Ligamentum Flavum. The ligament was taken down from the lamina of L4 to L5 and out medially to the remaining facet joint. The ligament was thick. The dura was then exposed. The dura was in good repair. There was tumor in the lateral gutters is taken out with a large curette. The L4 nerve was then traced with a curette out the L4/5 foramen and found to be adequately decompressed. The L5 nerve was traced with a curette around the L5 pedicle. The lateral recess was opened with a kerrison helping to further decompress the L5 nerve. Wound is then irrigated copiously with saline and surgiflo is used to stop any bleeding. The tubular retractor is removed and A skin incision is made over the L3/4 level. This is confirmed under c-arm guidance. A series of dilators are passed and the tubular retractor is docked on the L3 lamina. A bovie is used to clear the soft tissue off the lamina and the L 3/4 facet joint. A high speed rylee is then used to perform the laminectomy and take down the medial aspect of the L 3/4 facet joint. A kerrison rongeure was then used to take down the remaining lamina and smooth the edge of the laminectomy up to the point where the ligamentum flavum attaches. Attention was then brought to the medial aspect of the facet joint. The remaining medial aspect of the superior and inferior aspect of the facet joint were taken down with the kerrison from the pedicle of L3 to L 4. The facet j oint had significant hypertrophy. Attention was then brought to the Ligamentum Flavum. The ligament was taken down from the lamina of L3 to L4 and out medially to the remaining facet joint. The ligament was thick. The dura was then exposed. The dura was in good repair. Tumor was removed with a large curette on the lateral gutters. The L3 nerve was then traced with a curette out the L3/4 foramen and found to be adequately decompressed. The L4 nerve was traced with a curette around the L4 pedicle. The lateral recess was opened with a kerrison helping to further decompress the L4 nerve. Wound is then irrigated copiously with saline and surgiflo is used to stop any bleeding. The tubular retractor is removed and A skin incision is made over the level. This is confirmed under c-arm g uidance. A series of dilators are passed and the tubular retractor is docked on the L2 lamina. A bovie is used to clear the soft tissue off the lamina and the L 2/3 facet joint. A high speed rylee is then used to perform the laminectomy and take down the medial aspect of the L 2/3 facet joint. A kerrison rongeure was then used to take down the remaining lamina and smooth the edge of the laminectomy up to the point where the ligamentum flavum attaches. Attention was then brought to the medial aspect of the facet joint. The remaining medial aspect of the superior and inferior aspect of the facet joint were taken down with the kerrison from the pedicle of L2 to L 3. The facet joint had significant hypertrophy. Attention was then brought to the Ligamentum Flavum. The ligament was taken d own from the lamina of L2 to L3 and out medially to the remaining facet joint. The ligament was thick. The dura was then exposed. The dura was in good repair. Tumor was removed as well there was also tumor in the lamina at this level at L2. The L2 nerve was then traced with a curette out the L2/3 foramen and found to be adequately decompressed. The L3 nerve was traced with a curette around the L3 pedicle. The lateral recess was opened with a kerrison helping to further decompress the L3 nerve. Wound is then irrigated copiously with saline and surgiflo is used to stop any bleeding. The tubular retractor is removed and the wound is closed with vicryl and monocryl suture. Glue is then used to protect the wound. A sterile dressing is then placed. Patient was then placed in the supine position and transferred to the PACU in stable condition.
--- NOTE | 2022-03-07 11:30 | SUR.PHASEI ---
1103 PT TO PACU 5 PT AWAKE ALERT, VSS RT ARM SWOLLEN , UNCHANGED FROM PRE OP, ELEVATED ON PILLOW, LOWER BACK DRESSING D/I PT ABLE TO MOVE ALL EXT TO COMMAND, IV TO LT FOREARM #20 PATENT WITH 800 ML NS AT MOD RATE INFUSING PER GRAVITY, BILAT SCDSON AND WORKING, ID BRACLET TO RT WRIST , PT ID'D WITH 2 IDENTIFIERS. WARM BLANKETS TO PT X 3.
[2022-03-07] MEDS: HYDROmorphone 1 mg/mL INJ 1 mL 0.5 MG IVP (11:37)
[2022-03-07] MEDS: ondansetron 2 mg/ML SDV 2 mL 4 MG IVP (11:52)
[2022-03-07] MEDS: oxyCODONE 5 mg IR Tab/Cap 10 MG PO (13:15)
--- NOTE | 2022-03-07 17:10 | ANE.PACU2 ---
Inpatient post-anesthesia follow up: Airway intact: Yes Vital signs: Temperature 98.6 F Pulse Rate 96 Respiratory Rate 17 Blood Pressure 126/88 Pulse Oximetry 100 Oxygen Delivery Me thod Nasal Cannula Oxygen Flow Rate 3 Fraction of Inspir ed Oxygen Hydration adequate: Yes Nausea and vomiting: No Pain level: 4 Mental status: Baseline
== END 2022-03-07 13:35 | disposition home or self-care (01) ==
PROVIDERS: PCP Family Medicine; Visit Provider Orthopaedic Surgery
PROC: (CPT 20982; principal; 2022-03-07 07:00)
PROC: (CPT 20982; 2022-03-07 07:00)
DX: S32.020A Wedge compression fracture of second lumbar vertebra, initial encounter for closed fracture (principal); X58.XXXA Exposure to other specified factors, initial encounter; M54.16 Radiculopathy, lumbar region
CPT/HCPCS: 20982; 22514; 22515 ×3; 63047; 63048 ×2; 72100; 76000; 85014; 85018; 88307; 88311; 88361; 88374; J1100; J1170; J2405; J2704; J3010; J3490; J7030; P9041

== ENCOUNTER → 2022-03-22 09:50 | Outpatient (BNVA) | payer MEDICARE, SELFPAY | PROVIDERS: PCP Family Medicine; Visit Provider Physician Assistant | DX: Z47.89 Encounter for other orthopedic aftercare (principal); Z98.890 Other specified postprocedural states; M89.9 Disorder of bone, unspecified | CPT/HCPCS: 99024 ==

== ENCOUNTER → 2022-04-19 09:52 | Outpatient (BNVA) | payer MEDICARE, SELFPAY | PROVIDERS: PCP Family Medicine; Visit Provider Physician Assistant | DX: Z47.89 Encounter for other orthopedic aftercare (principal) | CPT/HCPCS: 99024 ==

== ENCOUNTER 2022-04-26 13:28 | Oncology outpatient (recurring) (ONCR) | payer MEDICARE, SELFPAY ==
[2022-04-10 13:43] LABS: Basophils # 0.1 10^3/uL (0.0-0.1); Basophils % 0.8 %; Eosinophils # 0.2 10^3/uL (0.0-0.8); Eosinophils % 2.1 %; Hematocrit 38.9 % (37.0-47.0); Hemoglobin 12.2 g/dL (11.5-15.3); Lymphocytes # 2.6 10^3/uL (0.8-4.8); Lymphocytes % 29.2 %; Mean Corpuscular HGB Conc 31.4 g/dL (30.0-36.0); Mean Corpuscular Hemoglobin 26.1 pg (28.0-34.0); Mean Corpuscular Volume 83.3 fl (81-99); Mean Platelet Volume 12.5 fL (7.4-10.4); Monocytes # 0.6 10^3/uL (0.2-0.9); Monocytes % 6.9 %; Neutrophils # 5.45 10^3/uL (1.8-7.7); Neutrophils % 60.8 %; Nucleated Red Blood Cells % 0 %; Platelet Count 274 10^3/cmm (130-400); Red Blood Count 4.67 10^6/uL (4.1-5.3); Red Cell Distribution Width 14.2 % (12.1-15.1)
[2022-04-10 13:56] LABS: Alanine Aminotransferase 14 U/L (0-33); Albumin Level 4.3 g/dL (3.5-5.2); Alkaline Phosphatase 238 IU/L (35-105); Anion Gap 15.4 (5-19); Aspartate Amino Transferase 19 U/L (0-32); Blood Urea Nitrogen 15 mg/dL (8-23); Calcium 9.7 mg/dL (8.5-10.5); Carbon Dioxide 26 mmol/L (22-29); Chloride 99 mmol/L (98-107); Globulin 2.9 g/dL (1.3-4.6); Glomerular Filtration Rate 99.7 mL/min (90-130); Glucose 132 mg/dL (65-115); Osmolality Calculated 285 mOsm/kg (285-295); Potassium 4.4 mmol/L (3.5-5.1); Sodium 136 mmol/L (136-145); Total Bilirubin 0.2 mg/dL (0.15-1.2); Total Protein 7.2 g/dL (6.6-8.7)
--- NOTE | 2022-04-10 15:21 | ONCRAD EPV_ITS ---
Radiation Oncology Follow-Up Note Patient Name: Karolina Sears Date of : 1955 Date of Service: 04/10/2022 Attending Physician: Sumeet Walker M.D. Karolina Sears was seen for re-evaluation this afternoon at the request of Anders Bob M.D. for consideration of palliative radiotherapy for the management of metastatic breast cancer.. 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 The breast cancer profile was estrogen receptor and progesterone receptor positive while negative for HER-2. Neoadjuvant chemotherapy was administered consisting of dose dense Adriamycin and cyclophosphamide followed by paclitaxel. A right modified radical mastectomy was performed on July 04, 2012. A residual multifocal carcinoma was present (largest focus was 2.1 cm) with dermal involvement a total of 21 lymph nodes were harvested with 2 harboring metastatic disease. Surgical margins were negative. Post-operative radiotherapy (60 Gy) was completed in September 2012. Adjuvant hormonal therapy (exemestane) was prescribed in August 2012. Delayed reconstruction the chest wall was completed in November 2013. In January 2013, hormonal therapy was changed to anastrozole. This was discontinued in September 2018 secondary to integumentary adverse effects. Tamoxifen was started but was discontinued on account of ill effects. During a recent medical oncology appointment, the patient described left hip pain with radiation. A radiograph of the lumbar spine obtained on January 31, 2022 revealed a pathologic compression fracture of the posterior aspect of the third lumbar vertebral body with involvement of L2 and L4. An MRI of the lumbar spine ordered on February 06, 2022 (independently visualized in [facility]) confirmed an L3 pathologic compression fracture associated with diffuse replacement of normal bone marrow signal involving L2-L5 vertebral bodies, an enhancing paravertebral lesion was noted with eccentric epidural disease within L3 causing moderate central canal stenosis, and metastatic disease within S1-S3 vertebral bodies. PET imaging ordered on February 21, 2022 confirmed extensive osseous involvement of the lumbosacral spine a left breast soft tissue mass (SUV 4.4), and left axillary adenopathy (SUV 2.6). Spinal radiofrequency ablation with kyphoplasty and laminectomy of L2-L5 was performed by Torin De Leon D.O. on March 07, 2022. Specimens that were obtained from L3 and L4 were consistent with metastatic adenocarcinoma. The patient was evaluated for spinal radiotherapy. I discussed with the patient the role for radiotherapy in the setting of symptomatic spinal metastases. I will refer her for surgical evaluation prior to proceeding with treatment. The patient has verbalized understanding would like to proceed as recommended. Her medical treatment plan has been discussed with Anders Bob M.D. I discussed with Ms. Sears the role for palliative radiotherapy. I would recommend a 2-week course of radiation therapy. A CT scan will be acquired for radiotherapy planning prior to beginning treatment to delineate the gross tumor volume. The potential toxicities of pelvic radiotherapy were reviewed. The patient has verbalized understanding would like to proceed as recommended. Her medical treatment plan has been discussed with Anders Bob M.D. Signed by: Dr. Sumeet Walker 04/12/2022 9:45:05 AM
--- NOTE | 2022-04-12 | CT_ITS ---
Radiation Therapy Planning CT images; total exam DLP: 767.89 mGy-cm MTDD
[2022-04-16 09:13] LABS: Miscellaneous Test See Scanned Lab Rpt
[2022-04-16 09:14] LABS: Miscellaneous Test See Scanned Lab Rpt
[2022-04-23 13:08] LABS: Basophils % 0.7 %; Eosinophils # 0.1 10^3/uL (0.0-0.8); Eosinophils % 1.5 %; Hematocrit 41.6 % (37.0-47.0); Hemoglobin 13.2 g/dL (11.5-15.3); Lymphocytes # 1.6 10^3/uL (0.8-4.8); Mean Corpuscular HGB Conc 31.7 g/dL (30.0-36.0); Mean Corpuscular Hemoglobin 26.5 pg (28.0-34.0); Mean Corpuscular Volume 83.5 fl (81-99); Mean Platelet Volume 11.8 fL (7.4-10.4); Monocytes # 0.5 10^3/uL (0.2-0.9); Monocytes % 7.5 %; Neutrophils # 3.78 10^3/uL (1.8-7.7); Nucleated Red Blood Cells % 0 %; Platelet Count 286 10^3/cmm (130-400); Red Blood Count 4.98 10^6/uL (4.1-5.3); Red Cell Distribution Width 13.7 % (12.1-15.1)
[2022-04-23 13:26] LABS: Alanine Aminotransferase 11 U/L (0-33); Albumin Level 4.4 g/dL (3.5-5.2); Alkaline Phosphatase 177 IU/L (35-105); Anion Gap 14.3 (5-19); Aspartate Amino Transferase 20 U/L (0-32); Blood Urea Nitrogen 11 mg/dL (8-23); Calcium 9.9 mg/dL (8.5-10.5); Carbon Dioxide 28 mmol/L (22-29); Chloride 99 mmol/L (98-107); Glomerular Filtration Rate 99.7 mL/min (90-130); Glucose 106 mg/dL (65-115); Osmolality Calculated 284 mOsm/kg (285-295); Potassium 4.3 mmol/L (3.5-5.1); Sodium 137 mmol/L (136-145); Total Bilirubin 0.3 mg/dL (0.15-1.2); Total Protein 7.4 g/dL (6.6-8.7)
[2022-04-23] MEDS: fulvestrant 250 mg/5 mL Syringe 500 MG IM (14:57)
[2022-04-23] MEDS: denosumab 120 mg SDV SUBCUT (14:58)
--- NOTE | 2022-04-24 14:13 | ONCRAD TMN_ITS ---
Radiation Oncology Treatment Management Note Patient Name: Karolina Sears Date of : 1955 Date of Service: 04/24/2022 Attending Physician: Sumeet Walker M.D. Karolina Sears is a 66 year-old white female diagnosed with metastatic breast cancer. 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 The breast cancer profile was estrogen receptor and progesterone receptor positive while negative for HER-2. Neoadjuvant chemotherapy was administered consisting of dose dense Adriamycin and cyclophosphamide followed by paclitaxel. A right modified radical mastectomy was performed on July 04, 2012. A residual multifocal carcinoma was present (largest focus was 2.1 cm) with dermal involvement a total of 21 lymph nodes were harvested with 2 harboring metastatic disease. Surgical margins were negative. Post-operative radiotherapy (60 Gy) was completed in September 2012. Adjuvant hormonal therapy (exemestane) was prescribed in August 2012. Delayed reconstruction the chest wall was completed in November 2013. In January 2013, hormonal therapy was changed to anastrozole. This was discontinued in September 2018 secondary to integumentary adverse effects. Tamoxifen was started but was discontinued on account of ill effects. During a recent medical oncology appointment, the patient described left hip pain with radiation. A radiograph of the lumbar spine obtained on January 31, 2022 revealed a pathologic compression fracture of the posterior aspect of the third lumbar vertebral body with involvement of L2 and L4. An MRI of the lumbar spine ordered on February 06, 2022 confirmed an L3 pathologic compression fracture associated with diffuse replacement of normal bone marrow signal involving L2-L5 vertebral bodies, an enhancing paravertebral lesion was noted with eccentric epidural disease within L3 causing moderate central canal stenosis, and metastatic disease within S1-S3 vertebral bodies. PET imaging ordered on February 21, 2022 confirmed extensive osseous involvement of the lumbosacral spine a left breast soft tissue mass (SUV 4.4), and left axillary adenopathy (SUV 2.6). Spinal radiofrequency ablation with kyphoplasty and laminectomy of L2-L5 was performed by Torin De Leon D.O. on March 07, 2022. Specimens that were obtained from L3 and L4 were consistent with metastatic adenocarcinoma. The patient has received 12 Gy of a prescribed 30 Clemens to the L1-S2 vertebral bodies metastases. Upon review of systems, she denied any new complaints. On physical examination, the patient weighed 120 lbs. Her temperature was 98.2 ???F and the blood pressure was 137/82 mmHg. Her pulse was 101 bpm and the respiratory rate was 16. No erythema was present within the skin. Continue palliative radiotherapy as prescribed. Signed by: Dr. Sumeet Walker 04/24/2022 2:12:00 PM
== END 2022-04-26 23:59 | disposition home or self-care (01) ==
PROVIDERS: Internal Medicine Medical Oncology; Nurse Practitioner Family; PCP Family Medicine; Visit Provider Radiology Radiation Oncology
DX: Z51.0 Encounter for antineoplastic radiation therapy (principal); C50.811 Malignant neoplasm of overlapping sites of right female breast; Z17.0 Estrogen receptor positive status [ER+]; C79.51 Secondary malignant neoplasm of bone
CPT/HCPCS: 36415; 77014; 77263; 77290; 77334; 77336; 77387; 77412; 77427; 80053; 85025; 88361; 88374; 96372; 96402; 99215; J0897; J9395

== ENCOUNTER 2022-05-07 11:48 | Outpatient (CLI) | payer MEDICARE, SELFPAY | END 2022-05-07 11:49 | disposition home or self-care (01) | LOC: LAB 11:50 | PROVIDERS: PCP Family Medicine; Visit Provider Internal Medicine Medical Oncology | DX: Z53.9 Procedure and treatment not carried out, unspecified reason (principal) | CPT/HCPCS: 36415; 80053; 85025 ==

== ENCOUNTER 2022-05-21 10:00 | Oncology outpatient (recurring) (ONCR) | payer MEDICARE, SELFPAY ==
--- NOTE | 2022-05-01 14:47 | ONCRAD TMN_ITS ---
Radiation Oncology Treatment Management Note Patient Name: Karolina Sears Date of : 1955 Date of Service: 05/01/2022 Attending Physician: Sumeet Walker M.D. Karolina Sears is a 66 year-old white female diagnosed with metastatic breast cancer. 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 The breast cancer profile was estrogen receptor and progesterone receptor positive while negative for HER-2. Neoadjuvant chemotherapy was administered consisting of dose dense Adriamycin and cyclophosphamide followed by paclitaxel. A right modified radical mastectomy was performed on July 04, 2012. A residual multifocal carcinoma was present (largest focus was 2.1 cm) with dermal involvement a total of 21 lymph nodes were harvested with 2 harboring metastatic disease. Surgical margins were negative. Post-operative radiotherapy (60 Gy) was completed in September 2012. Adjuvant hormonal therapy (exemestane) was prescribed in August 2012. Delayed reconstruction the chest wall was completed in November 2013. In January 2013, hormonal therapy was changed to anastrozole. This was discontinued in September 2018 secondary to integumentary adverse effects. Tamoxifen was started but was discontinued on account of ill effects. During a recent medical oncology appointment, the patient described left hip pain with radiation. A radiograph of the lumbar spine obtained on January 31, 2022 revealed a pathologic compression fracture of the posterior aspect of the third lumbar vertebral body with involvement of L2 and L4. An MRI of the lumbar spine ordered on February 06, 2022 confirmed an L3 pathologic compression fracture associated with diffuse replacement of normal bone marrow signal involving L2-L5 vertebral bodies, an enhancing paravertebral lesion was noted with eccentric epidural disease within L3 causing moderate central canal stenosis, and metastatic disease within S1-S3 vertebral bodies. PET imaging ordered on February 21, 2022 confirmed extensive osseous involvement of the lumbosacral spine a left breast soft tissue mass (SUV 4.4), and left axillary adenopathy (SUV 2.6). Spinal radiofrequency ablation with kyphoplasty and laminectomy of L2-L5 was performed by Torin De Leon D.O. on March 07, 2022. Specimens that were obtained from L3 and L4 were consistent with metastatic adenocarcinoma. The patient has received 12 Gy of a prescribed 30 Clemens to the L1-S2 vertebral bodies metastases. Upon review of systems, she reported nausea. On physical examination, the patient weighed 118 lbs. Her temperature was 99 ???F and the blood pressure was 120/78 mmHg. Her pulse was 92 bpm and the respiratory rate was 18. No erythema was present within the skin. Continue palliative radiotherapy as planned. Continue anti-emetic. Will discontinue Kisqali after discussion with medical oncology. Signed by: Dr. Sumeet Walker 05/01/2022 2:45:58 PM
--- NOTE | 2022-05-03 13:25 | N.ONRD TS_ITS ---
Radiation OncologyTreatment Summary Patient Name: Karolina Sears Date of : 1955 Date of Service: 05/03/2022 Attending Physician: Sumeet Walker M.D. Karolina Sears has completed palliative radiotherapy for the management of metastatic breast cancer. 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 The breast cancer profile was estrogen receptor and progesterone receptor positive while negative for HER-2. Neoadjuvant chemotherapy was administered consisting of dose dense Adriamycin and cyclophosphamide followed by paclitaxel. A right modified radical mastectomy was performed on July 04, 2012. A residual multifocal carcinoma was present (largest focus was 2.1 cm) with dermal involvement a total of 21 lymph nodes were harvested with 2 harboring metastatic disease. Surgical margins were negative. Post-operative radiotherapy (60 Gy) was completed in September 2012. Adjuvant hormonal therapy (exemestane) was prescribed in August 2012. Delayed reconstruction the chest wall was completed in November 2013. In January 2013, hormonal therapy was changed to anastrozole. This was discontinued in September 2018 secondary to integumentary adverse effects. Tamoxifen was started but was discontinued on account of ill effects. During a recent medical oncology appointment, the patient described left hip pain with radiation. A radiograph of the lumbar spine obtained on January 31, 2022 revealed a pathologic compression fracture of the posterior aspect of the third lumbar vertebral body with involvement of L2 and L4. An MRI of the lumbar spine ordered on February 06, 2022 confirmed an L3 pathologic compression fracture associated with diffuse replacement of normal bone marrow signal involving L2-L5 vertebral bodies, an enhancing paravertebral lesion was noted with eccentric epidural disease within L3 causing moderate central canal stenosis, and metastatic disease within S1-S3 vertebral bodies. PET imaging ordered on February 21, 2022 confirmed extensive osseous involvement of the lumbosacral spine a left breast soft tissue mass (SUV 4.4), and left axillary adenopathy (SUV 2.6). Spinal radiofrequency ablation with kyphoplasty and laminectomy of L2-L5 was performed by Torin De Leon D.O. on March 07, 2022. Specimens that were obtained from L3 and L4 were consistent with metastatic adenocarcinoma. Daily radiotherapy was administered between the dates of April 19, 2022 through May 03, 2022. A prescribed dose of 30 Gy was delivered in 10 fractions encompassing 15 elapsed days. L1 through S2 were treated with a 3-dimensional conformal radiotherapy plan with an AP field and a LPO/RPO wedge pair. The AP field utilized a 0??? gantry angle with a collimator angle of 0???. The field size measured 11 cm x 10.8 cm within the X-direction and 6.7 cm x 6.7 cm within the Y-direction. The SSD measured 85.5 cm with the field delivering 125 monitor units. The LPO port employed a gantry angle of 140??? and a collimator angle of 90???. The field size spanned 11 cm x 10.8 cm within X-direction and 6.7 cm x 6.7 cm within the Y-direction. The SSD was 89.2 cm with the field allocating 152 monitor units. An enhanced dynamic wedge 45??? was used. The RPO field was designed with a gantry angle of 220??? with a collimator angle of 90???. The measured field size was 11 cm x 10.7 cm within the X-direction and 6.7 cm x 7.2 cm within the Y-direction. The measured SSD was 89.4 cm with the field apportioning 152 monitor units. A 45??? enhanced dynamic wedge was incorporated. All treatments were performed with the UniSmart linear accelerator and an isocentric technique. The dose was calculated by Anisotropic Analytic Algorithm. A photon energy of 15 MV was prescribed with the plan normalized to deliver 100% of the prescription dose to 100% of the planning target volume. Signed by: Dr. Sumeet Walker 05/03/2022 1:24:33 PM
[2022-05-07 12:43] LABS: Basophils # 0.1 10^3/uL (0.0-0.1); Basophils % 1.3 %; Eosinophils # 0.4 10^3/uL (0.0-0.8); Eosinophils % 10.9 %; Hematocrit 36.9 % (37.0-47.0); Hemoglobin 12.1 g/dL (11.5-15.3); Lymphocytes # 0.5 10^3/uL (0.8-4.8); Lymphocytes % 12.9 %; Mean Corpuscular HGB Conc 32.8 g/dL (30.0-36.0); Mean Corpuscular Hemoglobin 26.9 pg (28.0-34.0); Mean Corpuscular Volume 82.2 fl (81-99); Mean Platelet Volume 10.5 fL (7.4-10.4); Monocytes # 0.5 10^3/uL (0.2-0.9); Monocytes % 12.6 %; Neutrophils # 2.47 10^3/uL (1.8-7.7); Neutrophils % 62.3 %; Nucleated Red Blood Cells % 0 %; Platelet Count 178 10^3/cmm (130-400); Red Blood Count 4.49 10^6/uL (4.1-5.3); Red Cell Distribution Width 14.7 % (12.1-15.1)
[2022-05-07 13:30] LABS: Alanine Aminotransferase 18 U/L (0-33); Alkaline Phosphatase 148 IU/L (35-105); Anion Gap 15.7 (5-19); Aspartate Amino Transferase 17 U/L (0-32); Blood Urea Nitrogen 9 mg/dL (8-23); Calcium 8.3 mg/dL (8.5-10.5); Carbon Dioxide 22 mmol/L (22-29); Chloride 102 mmol/L (98-107); Globulin 2.7 g/dL (1.3-4.6); Glomerular Filtration Rate 99.7 mL/min (90-130); Glucose 110 mg/dL (65-115); Osmolality Calculated 281 mOsm/kg (285-295); Potassium 3.7 mmol/L (3.5-5.1); Sodium 136 mmol/L (136-145); Total Bilirubin 0.3 mg/dL (0.15-1.2); Total Protein 6.7 g/dL (6.6-8.7)
[2022-05-07 14:02] LABS: Add Urine Microscopic? NO; Charge for UA Resulting for Rev
[2022-05-07] MEDS: fulvestrant 250 mg/5 mL Syringe 500 MG IM (14:19)
[2022-05-07 14:26] LABS: Bilirubin Urine Neg (Negative); Blood Urine Neg (Negative); Glucose Urine UA Norm (Normal); Ketones Urine 1+ (Negative); Leukocyte Esterase Urine Negative (Negative); Nitrate Urine Negative (Negative); Protein Urine Neg (Negative); Urine Appearance Clear (CLEAR); Urine Color Yellow (Yellow); Urobilinogen Urine Norm (Negative); pH Urine 5 (5-7)
[2022-05-21 11:01] LABS: Basophils # 0.1 10^3/uL (0.0-0.1); Eosinophils # 0.6 10^3/uL (0.0-0.8); Eosinophils % 12.3 %; Hematocrit 40.5 % (37.0-47.0); Hemoglobin 12.3 g/dL (11.5-15.3); Lymphocytes # 0.8 10^3/uL (0.8-4.8); Lymphocytes % 15.2 %; Mean Corpuscular HGB Conc 30.4 g/dL (30.0-36.0); Mean Corpuscular Hemoglobin 26.5 pg (28.0-34.0); Mean Corpuscular Volume 87.1 fl (81-99); Mean Platelet Volume 10.4 fL (7.4-10.4); Monocytes # 0.4 10^3/uL (0.2-0.9); Monocytes % 8.7 %; Neutrophils # 3.17 10^3/uL (1.8-7.7); Neutrophils % 62.6 %; Nucleated Red Blood Cells % 0 %; Platelet Count 304 10^3/cmm (130-400); Red Blood Count 4.65 10^6/uL (4.1-5.3); Red Cell Distribution Width 15.8 % (12.1-15.1); White Blood Count 5.1 10^3/uL (4.0-10.0)
[2022-05-21] MEDS: fulvestrant 250 mg/5 mL Syringe 500 MG IM (12:32)
[2022-05-21] MEDS: denosumab 120 mg SDV SUBCUT (12:32)
[2022-05-21 15:40] LABS: Alanine Aminotransferase 34 U/L (0-33); Albumin Level 4.4 g/dL (3.5-5.2); Alkaline Phosphatase 211 IU/L (35-105); Aspartate Amino Transferase 22 U/L (0-32); Blood Urea Nitrogen 12 mg/dL (8-23); Carbon Dioxide 26 mmol/L (22-29); Chloride 102 mmol/L (98-107); Globulin 2.3 g/dL (1.3-4.6); Glomerular Filtration Rate 123.1 mL/min (90-130); Glucose 141 mg/dL (65-115); Osmolality Calculated 294 mOsm/kg (285-295); Sodium 141 mmol/L (136-145); Total Bilirubin 0.2 mg/dL (0.15-1.2); Total Protein 6.7 g/dL (6.6-8.7)
[2022-05-21 15:42] LABS: Anion Gap 17.2 (5-19); Potassium 4.2 mmol/L (3.5-5.1)
[2022-05-21 16:00] LABS: CA 15-3 295.4 U/mL (0-25)
== END 2022-05-27 23:59 | disposition home or self-care (01) ==
PROVIDERS: Internal Medicine Medical Oncology; PCP Family Medicine; Visit Provider Nurse Practitioner Family
DX: C50.111 Malignant neoplasm of central portion of right female breast; C79.51 Secondary malignant neoplasm of bone; Z79.52 Long term (current) use of systemic steroids; Z17.0 Estrogen receptor positive status [ER+]; Z90.11 Acquired absence of right breast and nipple; Z79.818 Long term (current) use of other agents affecting estrogen receptors and estrogen levels; R11.2 Nausea with vomiting, unspecified; R19.7 Diarrhea, unspecified; Z79.899 Other long term (current) drug therapy; Z92.3 Personal history of irradiation
CPT/HCPCS: 36415; 77336; 77387; 77412; 80053; 81003; 85025; 86300; 96372; 96402; 99214; 99215; J0897; J9395

== ENCOUNTER 2022-06-18 12:27 | Oncology outpatient (recurring) (ONCR) | payer MEDICARE, SELFPAY ==
[2022-06-18 13:17] LABS: Basophils # 0.1 10^3/uL (0.0-0.1); Eosinophils # 0.2 10^3/uL (0.0-0.8); Eosinophils % 2.9 %; Hematocrit 40.5 % (37.0-47.0); Hemoglobin 12.4 g/dL (11.5-15.3); Lymphocytes # 1.2 10^3/uL (0.8-4.8); Lymphocytes % 22.4 %; Mean Corpuscular HGB Conc 30.6 g/dL (30.0-36.0); Mean Corpuscular Hemoglobin 27.3 pg (28.0-34.0); Mean Corpuscular Volume 89.2 fl (81-99); Mean Platelet Volume 10.7 fL (7.4-10.4); Monocytes # 0.5 10^3/uL (0.2-0.9); Monocytes % 9.6 %; Neutrophils # 3.35 10^3/uL (1.8-7.7); Neutrophils % 63.9 %; Nucleated Red Blood Cells % 0 %; Platelet Count 241 10^3/cmm (130-400); Red Blood Count 4.54 10^6/uL (4.1-5.3); Red Cell Distribution Width 16.1 % (12.1-15.1); White Blood Count 5.2 10^3/uL (4.0-10.0)
[2022-06-18 13:48] LABS: Alanine Aminotransferase 24 U/L (0-33); Albumin Level 4.4 g/dL (3.5-5.2); Alkaline Phosphatase 110 U/L (35-105); Anion Gap 15.4 (5-19); Aspartate Amino Transferase 22 U/L (0-32); Blood Urea Nitrogen 18 mg/dL (8-23); Calcium 9.4 mg/dL (8.5-10.5); Carbon Dioxide 25 mmol/L (22-29); Chloride 102 mmol/L (98-107); Globulin 2.5 g/dL (1.3-4.6); Glomerular Filtration Rate 122.7 mL/min (90-130); Glucose 87 mg/dL (65-115); Osmolality Calculated 287 mOsm/kg (285-295); Potassium 4.4 mmol/L (3.5-5.1); Sodium 138 mmol/L (136-145); Total Bilirubin 0.2 mg/dL (0.15-1.2); Total Protein 6.9 g/dL (6.6-8.7)
[2022-06-18] MEDS: denosumab 120 mg SDV SUBCUT (15:06)
[2022-06-18] MEDS: fulvestrant 250 mg/5 mL Syringe 500 MG IM (15:20)
== END 2022-06-27 23:59 | disposition home or self-care (01) ==
PROVIDERS: Internal Medicine Medical Oncology; PCP Family Medicine; Visit Provider Nurse Practitioner Family
DX: C50.111 Malignant neoplasm of central portion of right female breast; C79.51 Secondary malignant neoplasm of bone; Z17.0 Estrogen receptor positive status [ER+]; Z90.11 Acquired absence of right breast and nipple; Z79.818 Long term (current) use of other agents affecting estrogen receptors and estrogen levels; Z79.899 Other long term (current) drug therapy; Z92.21 Personal history of antineoplastic chemotherapy; Z92.3 Personal history of irradiation
CPT/HCPCS: 36415; 80053; 85025; 96372; 96402; 99214; 99215; J0897; J9395

== ENCOUNTER → 2022-07-04 12:17 | Outpatient (BNVA) | payer MEDICARE, SELFPAY | PROVIDERS: PCP Family Medicine; Visit Provider Nurse Practitioner | DX: C50.811 Malignant neoplasm of overlapping sites of right female breast (principal); Z17.0 Estrogen receptor positive status [ER+]; C79.51 Secondary malignant neoplasm of bone; Z90.11 Acquired absence of right breast and nipple; L03.113 Cellulitis of right upper limb; I89.0 Lymphedema, not elsewhere classified; G89.3 Neoplasm related pain (acute) (chronic); Z79.818 Long term (current) use of other agents affecting estrogen receptors and estrogen levels; Z79.891 Long term (current) use of opiate analgesic; Z79.899 Other long term (current) drug therapy; Z92.21 Personal history of antineoplastic chemotherapy; Z92.3 Personal history of irradiation | CPT/HCPCS: 99214 ==

== ENCOUNTER 2022-07-18 11:00 | Oncology outpatient (recurring) (ONCR) | payer MEDICARE, SELFPAY ==
[2022-07-04 13:04] LABS: Basophils % 0.6 %; Eosinophils # 0.1 10^3/uL (0.0-0.8); Eosinophils % 2.3 %; Hematocrit 41.2 % (37.0-47.0); Hemoglobin 12.6 g/dL (11.5-15.3); Lymphocytes # 1.1 10^3/uL (0.8-4.8); Lymphocytes % 20.5 %; Mean Corpuscular HGB Conc 30.6 g/dL (30.0-36.0); Mean Corpuscular Hemoglobin 27.1 pg (28.0-34.0); Mean Corpuscular Volume 88.6 fl (81-99); Mean Platelet Volume 10.9 fL (7.4-10.4); Monocytes # 0.6 10^3/uL (0.2-0.9); Monocytes % 11.4 %; Neutrophils # 3.43 10^3/uL (1.8-7.7); Nucleated Red Blood Cells % 0 %; Platelet Count 245 10^3/cmm (130-400); Red Blood Count 4.65 10^6/uL (4.1-5.3); Red Cell Distribution Width 16.5 % (12.1-15.1); White Blood Count 5.3 10^3/uL (4.0-10.0)
[2022-07-04 13:32] LABS: Alanine Aminotransferase 27 U/L (0-33); Albumin Level 4.8 g/dL (3.5-5.2); Alkaline Phosphatase 98 U/L (35-105); Anion Gap 15.2 (5-19); Aspartate Amino Transferase 25 U/L (0-32); Blood Urea Nitrogen 13 mg/dL (8-23); CA 15-3 199.6 U/mL (0-25); Calcium 9.3 mg/dL (8.5-10.5); Carbon Dioxide 28 mmol/L (22-29); Chloride 101 mmol/L (98-107); Globulin 2.6 g/dL (1.3-4.6); Glomerular Filtration Rate 99.4 mL/min (90-130); Glucose 92 mg/dL (65-115); Osmolality Calculated 290 mOsm/kg (285-295); Potassium 4.2 mmol/L (3.5-5.1); Sodium 140 mmol/L (136-145); Total Bilirubin 0.2 mg/dL (0.15-1.2); Total Protein 7.4 g/dL (6.6-8.7)
[2022-07-18 12:14] LABS: Basophils % 1.9 %; Eosinophils % 1.9 %; Hematocrit 38.9 % (37.0-47.0); Hemoglobin 12.3 g/dL (11.5-15.3); Lymphocytes # 0.8 10^3/uL (0.8-4.8); Lymphocytes % 40.2 %; Mean Corpuscular HGB Conc 31.6 g/dL (30.0-36.0); Mean Corpuscular Hemoglobin 27.8 pg (28.0-34.0); Mean Platelet Volume 10.2 fL (7.4-10.4); Monocytes # 0.2 10^3/uL (0.2-0.9); Monocytes % 7.7 %; Neutrophils # 1.01 10^3/uL (1.8-7.7); Neutrophils % 48.3 %; Nucleated Red Blood Cells % 0 %; Platelet Count 203 10^3/cmm (130-400); Red Blood Count 4.42 10^6/uL (4.1-5.3); White Blood Count 2.1 10^3/uL (4.0-10.0)
[2022-07-18 12:28] LABS: Alanine Aminotransferase 12 U/L (0-33); Albumin Level 4.5 g/dL (3.5-5.2); Alkaline Phosphatase 88 U/L (35-105); Anion Gap 14.7 (5-19); Aspartate Amino Transferase 17 U/L (0-32); Blood Urea Nitrogen 13 mg/dL (8-23); Carbon Dioxide 29 mmol/L (22-29); Chloride 103 mmol/L (98-107); Glomerular Filtration Rate 71.3 mL/min (90-130); Glucose 93 mg/dL (65-115); Osmolality Calculated 294 mOsm/kg (285-295); Potassium 4.7 mmol/L (3.5-5.1); Sodium 142 mmol/L (136-145); Total Bilirubin 0.2 mg/dL (0.15-1.2); Total Protein 7.5 g/dL (6.6-8.7)
[2022-07-18 12:51] LABS: CA 15-3 166.6 U/mL (0-25)
[2022-07-18] MEDS: denosumab 120 mg SDV SUBCUT (14:13)
== END 2022-07-27 23:59 | disposition home or self-care (01) ==
PROVIDERS: PCP Family Medicine; Visit Provider Nurse Practitioner Family
DX: C50.111 Malignant neoplasm of central portion of right female breast (principal); Z17.0 Estrogen receptor positive status [ER+]; C79.51 Secondary malignant neoplasm of bone; Z90.11 Acquired absence of right breast and nipple; L03.113 Cellulitis of right upper limb; I89.0 Lymphedema, not elsewhere classified; Z79.818 Long term (current) use of other agents affecting estrogen receptors and estrogen levels; Z79.899 Other long term (current) drug therapy; Z92.21 Personal history of antineoplastic chemotherapy; Z92.3 Personal history of irradiation
CPT/HCPCS: 80053; 85025; 86300; 96372; 99214; 99215; J0897

== ENCOUNTER 2022-08-16 10:52 | Outpatient (CLI) | payer MEDICARE, SELFPAY ==
[2022-08-16 11:50] LABS: Basophils % 1.6 %; Eosinophils % 0.8 %; Hematocrit 36.6 % (37.0-47.0); Hemoglobin 12.2 g/dL (11.5-15.3); Lymphocytes # 0.8 10^3/uL (0.8-4.8); Lymphocytes % 32.9 %; Mean Corpuscular HGB Conc 33.3 g/dL (30.0-36.0); Mean Corpuscular Hemoglobin 30.3 pg (28.0-34.0); Mean Platelet Volume 9.8 fL (7.4-10.4); Monocytes # 0.2 10^3/uL (0.2-0.9); Monocytes % 8.2 %; Neutrophils # 1.36 10^3/uL (1.8-7.7); Neutrophils % 56.1 %; Nucleated Red Blood Cells % 0 %; Platelet Count 221 10^3/cmm (130-400); Red Blood Count 4.02 10^6/uL (4.1-5.3); Red Cell Distribution Width 16.8 % (12.1-15.1); White Blood Count 2.4 10^3/uL (4.0-10.0)
[2022-08-16 12:24] LABS: Slide Review Slide Review Perform
[2022-08-16 12:36] LABS: Alanine Aminotransferase 16 U/L (0-33); Albumin Level 4.4 g/dL (3.5-5.2); Alkaline Phosphatase 77 U/L (35-105); Anion Gap 15.2 (5-19); Aspartate Amino Transferase 20 U/L (0-32); Blood Urea Nitrogen 17 mg/dL (8-23); CA 15-3 147.2 U/mL (0-25); Calcium 9.2 mg/dL (8.5-10.5); Carbon Dioxide 25 mmol/L (22-29); Chloride 102 mmol/L (98-107); Globulin 3.2 g/dL (1.3-4.6); Glomerular Filtration Rate 83.2 mL/min (90-130); Glucose 88 mg/dL (65-115); Osmolality Calculated 287 mOsm/kg (285-295); Potassium 4.2 mmol/L (3.5-5.1); Sodium 138 mmol/L (136-145); Total Bilirubin 0.3 mg/dL (0.15-1.2); Total Protein 7.6 g/dL (6.6-8.7)
== END 2022-08-16 10:53 | disposition home or self-care (01) ==
PROVIDERS: PCP Family Medicine; Visit Provider Internal Medicine Medical Oncology
DX: C50.111 Malignant neoplasm of central portion of right female breast (principal); L65.9 Nonscarring hair loss, unspecified
CPT/HCPCS: 36415; 80053; 84443; 85025; 86300

== ENCOUNTER 2022-08-16 11:00 | Oncology outpatient (recurring) (ONCR) | payer MEDICARE, SELFPAY ==
[2022-08-16] MEDS: denosumab 120 mg SDV SUBCUT (12:18)
== END 2022-08-27 23:59 | disposition home or self-care (01) ==
PROVIDERS: PCP Family Medicine; Visit Provider Nurse Practitioner Family
DX: C50.111 Malignant neoplasm of central portion of right female breast (principal); Z17.0 Estrogen receptor positive status [ER+]; C79.51 Secondary malignant neoplasm of bone; Z51.11 Encounter for antineoplastic chemotherapy; L65.9 Nonscarring hair loss, unspecified
CPT/HCPCS: 36415; 80053; 84443; 85025; 86300; 96372; 99214; J0897

== ENCOUNTER 2022-09-13 11:30 | Oncology outpatient (recurring) (ONCR) | payer MEDICARE, SELFPAY ==
[2022-08-30] MEDS: ertapenem 1,000 MG in sodium chloride 0.9% (plus) 100 ML 200 MG IV (13:52)
[2022-08-31] MEDS: ertapenem 1,000 MG in sodium chloride 0.9% (plus) 100 ML 200 MG IV (09:36)
[2022-08-31 10:09] VITALS: BP 113/71; PULSE 79; RESP 16; TEMP 36.7; O2SAT 99
[2022-09-13] MEDS: denosumab 120 mg SDV SUBCUT (11:47)
[2022-09-13 11:53] VITALS: BP 123/73; PULSE 85; RESP 18; TEMP 36.8; O2SAT 98
== END 2022-09-26 23:59 | disposition home or self-care (01) ==
PROVIDERS: PCP Family Medicine; Visit Provider Internal Medicine Medical Oncology
DX: Z51.11 Encounter for antineoplastic chemotherapy (principal); C50.111 Malignant neoplasm of central portion of right female breast; Z17.0 Estrogen receptor positive status [ER+]; C79.51 Secondary malignant neoplasm of bone; Z90.11 Acquired absence of right breast and nipple; L03.113 Cellulitis of right upper limb; I89.0 Lymphedema, not elsewhere classified; R11.2 Nausea with vomiting, unspecified; R19.7 Diarrhea, unspecified; D70.1 Agranulocytosis secondary to cancer chemotherapy; T45.1X5A Adverse effect of antineoplastic and immunosuppressive drugs, initial encounter; Z79.818 Long term (current) use of other agents affecting estrogen receptors and estrogen levels; Z79.899 Other long term (current) drug therapy
CPT/HCPCS: 96365; 96372; 96401; J0897; J1335

== ENCOUNTER 2022-10-16 11:37 | Oncology outpatient (recurring) (ONCR) | payer MEDICARE, SELFPAY ==
[2022-10-16 12:28] LABS: Basophils % 1.6 %; Eosinophils % 1.2 %; Hematocrit 35.4 % (37.0-47.0); Hemoglobin 11.9 g/dL (11.5-15.3); Lymphocytes # 0.9 10^3/uL (0.8-4.8); Lymphocytes % 33.9 %; Mean Corpuscular HGB Conc 33.6 g/dL (30.0-36.0); Mean Corpuscular Hemoglobin 32.9 pg (28.0-34.0); Mean Corpuscular Volume 97.8 fl (81-99); Mean Platelet Volume 10.2 fL (7.4-10.4); Monocytes # 0.2 10^3/uL (0.2-0.9); Monocytes % 8.7 %; Neutrophils # 1.39 10^3/uL (1.8-7.7); Neutrophils % 54.6 %; Nucleated Red Blood Cells % 0 %; Platelet Count 174 10^3/cmm (130-400); Red Blood Count 3.62 10^6/uL (4.1-5.3); Red Cell Distribution Width 15.6 % (12.1-15.1); White Blood Count 2.5 10^3/uL (4.0-10.0)
[2022-10-16 12:59] LABS: Alanine Aminotransferase 15 U/L (0-33); Albumin Level 4.3 g/dL (3.5-5.2); Alkaline Phosphatase 64 U/L (35-105); Anion Gap 11.9 (5-19); Aspartate Amino Transferase 19 U/L (0-32); Blood Urea Nitrogen 17 mg/dL (8-23); CA 15-3 107.9 U/mL (0-25); Calcium 9.1 mg/dL (8.5-10.5); Carbon Dioxide 26 mmol/L (22-29); Chloride 102 mmol/L (98-107); Glomerular Filtration Rate 71.3 mL/min (90-130); Glucose 93 mg/dL (65-115); Osmolality Calculated 283 mOsm/kg (285-295); Potassium 3.9 mmol/L (3.5-5.1); Sodium 136 mmol/L (136-145); Total Bilirubin 0.2 mg/dL (0.15-1.2); Total Protein 7.3 g/dL (6.6-8.7)
[2022-10-16] MEDS: denosumab 120 mg SDV SUBCUT (14:33)
== END 2022-10-27 23:59 | disposition home or self-care (01) ==
PROVIDERS: PCP Family Medicine; Visit Provider Internal Medicine Medical Oncology
DX: C50.811 Malignant neoplasm of overlapping sites of right female breast; Z17.0 Estrogen receptor positive status [ER+]; C79.51 Secondary malignant neoplasm of bone; Z90.11 Acquired absence of right breast and nipple; D64.81 Anemia due to antineoplastic chemotherapy; D70.1 Agranulocytosis secondary to cancer chemotherapy; T45.1X5A Adverse effect of antineoplastic and immunosuppressive drugs, initial encounter; Z79.818 Long term (current) use of other agents affecting estrogen receptors and estrogen levels; Z79.899 Other long term (current) drug therapy; Z92.3 Personal history of irradiation; Z92.25 Personal history of immunosuppression therapy
CPT/HCPCS: 36415; 80053; 85025; 86300; 96372; 96401; 99214; J0897

== ENCOUNTER 2022-11-15 10:20 | Oncology outpatient (recurring) (ONCR) | payer MEDICARE, SELFPAY ==
[2022-11-15 10:52] LABS: Basophils % 1.7 %; Eosinophils % 1.2 %; Hematocrit 35.8 % (37.0-47.0); Hemoglobin 12.2 g/dL (11.5-15.3); Lymphocytes # 0.8 10^3/uL (0.8-4.8); Lymphocytes % 32.8 %; Mean Corpuscular HGB Conc 34.1 g/dL (30.0-36.0); Mean Corpuscular Hemoglobin 33.8 pg (28.0-34.0); Mean Corpuscular Volume 99.2 fl (81-99); Mean Platelet Volume 9.7 fL (7.4-10.4); Monocytes # 0.2 10^3/uL (0.2-0.9); Monocytes % 9.5 %; Neutrophils # 1.32 10^3/uL (1.8-7.7); Neutrophils % 54.8 %; Nucleated Red Blood Cells % 0 %; Platelet Count 196 10^3/cmm (130-400); Red Blood Count 3.61 10^6/uL (4.1-5.3); Red Cell Distribution Width 13.4 % (12.1-15.1); White Blood Count 2.4 10^3/uL (4.0-10.0)
[2022-11-15] MEDS: denosumab 120 mg SDV SUBCUT (10:58)
[2022-11-15 11:26] LABS: Slide Review Slide Review Perform
[2022-11-15 11:27] LABS: Alanine Aminotransferase 18 U/L (0-33); Albumin Level 4.4 g/dL (3.5-5.2); Alkaline Phosphatase 66 U/L (35-105); Anion Gap 14.4 (5-19); Aspartate Amino Transferase 22 U/L (0-32); Blood Urea Nitrogen 18 mg/dL (8-23); Calcium 10.3 mg/dL (8.5-10.5); Carbon Dioxide 28 mmol/L (22-29); Chloride 103 mmol/L (98-107); Globulin 3.4 g/dL (1.3-4.6); Glomerular Filtration Rate 62.3 mL/min (90-130); Glucose 105 mg/dL (65-115); Osmolality Calculated 294 mOsm/kg (285-295); Potassium 4.4 mmol/L (3.5-5.1); Sodium 141 mmol/L (136-145); Total Bilirubin 0.2 mg/dL (0.15-1.2); Total Protein 7.8 g/dL (6.6-8.7)
--- NOTE | 2022-11-15 15:53 | PC.NURSE ---
Patients labs drawn with Dr Bob reviewed the labs and results. Patient was sent a copy.joby
== END 2022-11-27 23:59 | disposition home or self-care (01) ==
PROVIDERS: PCP Family Medicine; Visit Provider Internal Medicine Medical Oncology
DX: C79.51 Secondary malignant neoplasm of bone; C50.111 Malignant neoplasm of central portion of right female breast; Z17.0 Estrogen receptor positive status [ER+]
CPT/HCPCS: 80053; 85025; 86300; 96372; 96401; J0897

== ENCOUNTER 2022-12-21 09:45 | Oncology outpatient (recurring) (ONCR) | payer OTHER, SELFPAY ==
[2022-12-13 15:05] LABS: Basophils % 1.8 %; Eosinophils % 1.4 %; Hematocrit 35.6 % (37.0-47.0); Hemoglobin 11.7 g/dL (11.5-15.3); Lymphocytes # 0.7 10^3/uL (0.8-4.8); Lymphocytes % 31.7 %; Mean Corpuscular HGB Conc 32.9 g/dL (30.0-36.0); Mean Corpuscular Hemoglobin 32.9 pg (28.0-34.0); Mean Platelet Volume 9.9 fL (7.4-10.4); Monocytes # 0.3 10^3/uL (0.2-0.9); Monocytes % 11.8 %; Neutrophils # 1.17 10^3/uL (1.8-7.7); Neutrophils % 52.8 %; Nucleated Red Blood Cells % 0 %; Platelet Count 161 10^3/cmm (130-400); Red Blood Count 3.56 10^6/uL (4.1-5.3); White Blood Count 2.2 10^3/uL (4.0-10.0)
[2022-12-13 15:28] LABS: Slide Review Slide Review Perform
[2022-12-13] MEDS: denosumab 120 mg SDV SUBCUT (16:19)
[2022-12-13 17:01] LABS: Alanine Aminotransferase 19 U/L (0-33); Albumin Level 4.5 g/dL (3.5-5.2); Alkaline Phosphatase 64 U/L (35-105); Aspartate Amino Transferase 28 U/L (0-32); Blood Urea Nitrogen 21 mg/dL (8-23); CA 15-3 75.6 U/mL (0-25); Calcium 9.4 mg/dL (8.5-10.5); Carbon Dioxide 29 mmol/L (22-29); Chloride 104 mmol/L (98-107); Globulin 2.4 g/dL (1.3-4.6); Glomerular Filtration Rate 71.3 mL/min (90-130); Glucose 109 mg/dL (65-115); Osmolality Calculated 300 mOsm/kg (285-295); Sodium 143 mmol/L (136-145); Thyroid Stimulating Hormone 2.78 uIU/mL (0.27-4.20); Total Bilirubin 0.2 mg/dL (0.15-1.2); Total Protein 6.9 g/dL (6.6-8.7); Vitamin B12 698 pg/mL (232-1245)
[2022-12-21] MEDS: ertapenem 1,000 MG in sodium chloride 0.9% (plus) 100 ML 200 MG IV (11:20)
[2022-12-21] MEDS: ondansetron 2 mg/ML SDV 2 mL 8 MG IVP (11:27)
[2022-12-21] MEDS: sodium chloride 0.9% 1,000 ML 999 ML IV (11:28)
== END 2022-12-25 23:59 | disposition home or self-care (01) ==
PROVIDERS: PCP Family Medicine; Visit Provider Internal Medicine Medical Oncology
DX: I97.2 Postmastectomy lymphedema syndrome; C79.51 Secondary malignant neoplasm of bone; Z79.899 Other long term (current) drug therapy; Z79.2 Long term (current) use of antibiotics
CPT/HCPCS: 36415; 80053; 82607; 84443; 85025; 86300; 96365; 96372; 96375; J0897; J1335; J2405; J2930; J7030

== ENCOUNTER 2022-12-23 09:50 | Outpatient (RCR) | payer MEDICARE, SELFPAY ==
[2022-12-22 10:10] VITALS: BP 124/62; PULSE 89; RESP 16; TEMP 37.7; O2SAT 97
[2022-12-22] MEDS: ondansetron 2 mg/ML SDV 2 mL 8 MG IVP (10:45)
[2022-12-23] MEDS: ondansetron 2 mg/ML SDV 2 mL 8 MG IVP (10:09)
[2022-12-23 10:14] VITALS: BP 134/76; PULSE 69; RESP 18; TEMP 37.2; O2SAT 99
== END 2022-12-25 23:59 | disposition home or self-care (01) ==
LOC: OPS 09:50
PROVIDERS: PCP Family Medicine; Visit Provider Internal Medicine Medical Oncology
DX: T63.441A Toxic effect of venom of bees, accidental (unintentional), initial encounter (principal); I97.2 Postmastectomy lymphedema syndrome
CPT/HCPCS: 96365; 96374; J1335; J2405

== ENCOUNTER 2023-01-24 10:00 | Oncology outpatient (recurring) (ONCR) | payer MEDICARE, SELFPAY ==
[2023-01-10] MEDS: denosumab 120 mg SDV SUBCUT (13:25)
[2023-01-10 13:52] LABS: Eosinophils % 0.5 %; Hematocrit 34.8 % (37.0-47.0); Hemoglobin 11.7 g/dL (11.5-15.3); Lymphocytes # 0.8 10^3/uL (0.8-4.8); Lymphocytes % 40.3 %; Mean Corpuscular HGB Conc 33.6 g/dL (30.0-36.0); Mean Corpuscular Hemoglobin 33.4 pg (28.0-34.0); Mean Corpuscular Volume 99.4 fl (81-99); Monocytes # 0.2 10^3/uL (0.2-0.9); Neutrophils % 47.2 %; Nucleated Red Blood Cells % 0 %; Platelet Count 168 10^3/cmm (130-400); Red Cell Distribution Width 13.2 % (12.1-15.1)
[2023-01-10 14:04] LABS: Alanine Aminotransferase 16 U/L (0-33); Albumin Level 4.1 g/dL (3.5-5.2); Alkaline Phosphatase 50 U/L (35-105); Anion Gap 13.1 (5-19); Aspartate Amino Transferase 21 U/L (0-32); Blood Urea Nitrogen 16 mg/dL (8-23); Calcium 9.1 mg/dL (8.5-10.5); Carbon Dioxide 28 mmol/L (22-29); Chloride 103 mmol/L (98-107); Globulin 2.7 g/dL (1.3-4.6); Glomerular Filtration Rate 71.3 mL/min (90-130); Glucose 97 mg/dL (65-115); Osmolality Calculated 291 mOsm/kg (285-295); Potassium 4.1 mmol/L (3.5-5.1); Sodium 140 mmol/L (136-145); Total Bilirubin 0.2 mg/dL (0.15-1.2); Total Protein 6.8 g/dL (6.6-8.7)
[2023-01-10 14:09] LABS: Neutrophils # 0.95 10^3/uL (1.8-7.7)
[2023-01-10 14:10] LABS: Slide Review Slide Review Perform
[2023-01-17 10:26] LABS: Basophils # 0.1 10^3/uL (0.0-0.1); Basophils % 1.8 %; Eosinophils % 1.1 %; Hematocrit 35.5 % (37.0-47.0); Hemoglobin 11.6 g/dL (11.5-15.3); Lymphocytes # 1.1 10^3/uL (0.8-4.8); Lymphocytes % 38.6 %; Mean Corpuscular HGB Conc 32.7 g/dL (30.0-36.0); Mean Corpuscular Hemoglobin 32.6 pg (28.0-34.0); Mean Corpuscular Volume 99.7 fl (81-99); Mean Platelet Volume 9.4 fL (7.4-10.4); Monocytes # 0.5 10^3/uL (0.2-0.9); Neutrophils % 40.5 %; Nucleated Red Blood Cells % 0 %; Platelet Count 191 10^3/cmm (130-400); Red Blood Count 3.56 10^6/uL (4.1-5.3); Red Cell Distribution Width 13.5 % (12.1-15.1); White Blood Count 2.7 10^3/uL (4.0-10.0)
--- NOTE | 2023-01-17 16:17 | PC.NURSE ---
Patient had cbc drawn with Dr vasquez reviewing the results with no Ibrance as yet and repeat cbcin one week.mm
[2023-01-24 11:23] VITALS: BP 148/71; PULSE 87; RESP 18; TEMP 36.8; O2SAT 96
[2023-01-24 11:29] LABS: Basophils # 0.1 10^3/uL (0.0-0.1); Eosinophils % 0.8 %; Hematocrit 39.2 % (37.0-47.0); Hemoglobin 12.8 g/dL (11.5-15.3); Lymphocytes # 1.2 10^3/uL (0.8-4.8); Lymphocytes % 23.9 %; Mean Corpuscular HGB Conc 32.7 g/dL (30.0-36.0); Mean Corpuscular Hemoglobin 32.5 pg (28.0-34.0); Mean Corpuscular Volume 99.5 fl (81-99); Mean Platelet Volume 10.2 fL (7.4-10.4); Monocytes # 0.6 10^3/uL (0.2-0.9); Monocytes % 12.8 %; Neutrophils # 2.97 10^3/uL (1.8-7.7); Neutrophils % 60.1 %; Nucleated Red Blood Cells % 0 %; Platelet Count 230 10^3/cmm (130-400); Red Blood Count 3.94 10^6/uL (4.1-5.3); White Blood Count 4.9 10^3/uL (4.0-10.0)
== END 2023-01-25 23:59 | disposition home or self-care (01) ==
PROVIDERS: Internal Medicine Hematology & Oncology; PCP Family Medicine; Visit Provider Internal Medicine Medical Oncology
DX: C79.51 Secondary malignant neoplasm of bone (principal); C50.111 Malignant neoplasm of central portion of right female breast; Z17.0 Estrogen receptor positive status [ER+]
CPT/HCPCS: 36415; 80053; 85025; 96372; J0897

== ENCOUNTER 2023-02-07 12:24 | Oncology outpatient (recurring) (ONCR) | payer MEDICARE, SELFPAY ==
[2023-02-07 13:28] LABS: Basophils % 0.9 %; Eosinophils # 0.1 10^3/uL (0.0-0.8); Eosinophils % 1.4 %; Hemoglobin 11.9 g/dL (11.5-15.3); Lymphocytes % 27.4 %; Mean Corpuscular HGB Conc 33.1 g/dL (30.0-36.0); Mean Corpuscular Hemoglobin 32.7 pg (28.0-34.0); Mean Corpuscular Volume 98.9 fl (81-99); Mean Platelet Volume 10.3 fL (7.4-10.4); Monocytes # 0.3 10^3/uL (0.2-0.9); Monocytes % 7.7 %; Neutrophils # 2.17 10^3/uL (1.8-7.7); Nucleated Red Blood Cells % 0 %; Platelet Count 217 10^3/cmm (130-400); Red Blood Count 3.64 10^6/uL (4.1-5.3); Red Cell Distribution Width 12.7 % (12.1-15.1); White Blood Count 3.5 10^3/uL (4.0-10.0)
[2023-02-07] MEDS: denosumab 120 mg SDV SUBCUT (13:39)
[2023-02-07 13:46] LABS: Alanine Aminotransferase 21 U/L (0-33); Albumin Level 4.3 g/dL (3.5-5.2); Alkaline Phosphatase 49 U/L (35-105); Anion Gap 13.3 (5-19); Aspartate Amino Transferase 21 U/L (0-32); Blood Urea Nitrogen 21 mg/dL (8-23); Calcium 9.3 mg/dL (8.5-10.5); Carbon Dioxide 27 mmol/L (22-29); Chloride 102 mmol/L (98-107); Glomerular Filtration Rate 49.4 mL/min (90-130); Glucose 96 mg/dL (65-115); Osmolality Calculated 289 mOsm/kg (285-295); Potassium 4.3 mmol/L (3.5-5.1); Sodium 138 mmol/L (136-145); Total Bilirubin 0.2 mg/dL (0.15-1.2); Total Protein 7.3 g/dL (6.6-8.7)
[2023-02-07 14:00] VITALS: BP 122/75; PULSE 76; RESP 18; TEMP 37.1; O2SAT 99
== END 2023-02-24 23:59 | disposition home or self-care (01) ==
LOC: ONCMED 12:24
PROVIDERS: PCP Family Medicine; Visit Provider Internal Medicine Medical Oncology
DX: C50.111 Malignant neoplasm of central portion of right female breast; Z17.0 Estrogen receptor positive status [ER+]; C79.51 Secondary malignant neoplasm of bone; Z79.899 Other long term (current) drug therapy
CPT/HCPCS: 36415; 80053; 85025; 96372; J0897

== ENCOUNTER 2023-03-07 11:56 | Oncology outpatient (recurring) (ONCR) | payer MEDICARE, SELFPAY ==
[2023-03-07 12:29] LABS: Basophils # 0.1 10^3/uL (0.0-0.1); Basophils % 1.7 %; Hematocrit 37.2 % (37.0-47.0); Lymphocytes # 0.9 10^3/uL (0.8-4.8); Lymphocytes % 28.6 %; Mean Corpuscular HGB Conc 32.3 g/dL (30.0-36.0); Mean Corpuscular Volume 99.2 fl (81-99); Mean Platelet Volume 10.3 fL (7.4-10.4); Monocytes # 0.2 10^3/uL (0.2-0.9); Monocytes % 6.1 %; Neutrophils # 1.86 10^3/uL (1.8-7.7); Neutrophils % 62.6 %; Nucleated Red Blood Cells % 0 %; Platelet Count 227 10^3/cmm (130-400); Red Blood Count 3.75 10^6/uL (4.1-5.3); Red Cell Distribution Width 13.2 % (12.1-15.1)
[2023-03-07 13:17] LABS: Slide Review Slide Review Perform
[2023-03-07 13:35] LABS: Alanine Aminotransferase 18 U/L (0-33); Albumin Level 4.6 g/dL (3.5-5.2); Alkaline Phosphatase 52 U/L (35-105); Aspartate Amino Transferase 23 U/L (0-32); Blood Urea Nitrogen 16 mg/dL (8-23); Calcium 9.1 mg/dL (8.5-10.5); Carbon Dioxide 25 mmol/L (22-29); Chloride 104 mmol/L (98-107); Globulin 2.7 g/dL (1.3-4.6); Glomerular Filtration Rate 55.1 mL/min (90-130); Glucose 87 mg/dL (65-115); Osmolality Calculated 291 mOsm/kg (285-295); Sodium 140 mmol/L (136-145); Total Bilirubin 0.3 mg/dL (0.15-1.2); Total Protein 7.3 g/dL (6.6-8.7)
[2023-03-07 14:04] LABS: CA 15-3 57.7 U/mL (0-25)
[2023-03-07] MEDS: denosumab 120 mg SDV SUBCUT (14:42)
== END 2023-03-27 23:59 | disposition home or self-care (01) ==
PROVIDERS: PCP Family Medicine; Visit Provider Internal Medicine Medical Oncology
DX: C79.51 Secondary malignant neoplasm of bone; C50.111 Malignant neoplasm of central portion of right female breast; Z17.0 Estrogen receptor positive status [ER+]; R97.8 Other abnormal tumor markers; G31.84 Mild cognitive impairment of uncertain or unknown etiology; Z79.818 Long term (current) use of other agents affecting estrogen receptors and estrogen levels; Z79.899 Other long term (current) drug therapy
CPT/HCPCS: 36591; 80053; 85025; 86300; 96372; 99214; J0897

== ENCOUNTER 2023-04-04 09:47 | Oncology outpatient (recurring) (ONCR) | payer MEDICARE, SELFPAY ==
[2023-04-04 10:31] VITALS: BP 145/78; PULSE 64; RESP 18; TEMP 36.6; O2SAT 98
[2023-04-04] MEDS: denosumab 120 mg SDV SUBCUT (10:41)
== END 2023-04-26 23:59 | disposition home or self-care (01) ==
PROVIDERS: PCP Family Medicine; Visit Provider Internal Medicine Medical Oncology
DX: Z51.11 Encounter for antineoplastic chemotherapy (principal); C79.51 Secondary malignant neoplasm of bone
CPT/HCPCS: 96401; J0897

== ENCOUNTER 2023-05-10 08:53 | Oncology outpatient (recurring) (ONCR) | payer MEDICARE, SELFPAY ==
[2023-05-02] MEDS: denosumab 120 mg SDV SUBCUT (10:16)
[2023-05-02 10:20] VITALS: BP 141/75; PULSE 76; RESP 16; TEMP 36.3; O2SAT 98
[2023-05-06 14:09] VITALS: BP 128/76; PULSE 92; RESP 18; TEMP 37.3; O2SAT 96
[2023-05-06 14:27] LABS: Basophils % 0.5 %; Eosinophils % 0.3 %; Hematocrit 35.3 % (37.0-47.0); Hemoglobin 11.8 g/dL (11.5-15.3); Lymphocytes % 15.4 %; Mean Corpuscular HGB Conc 33.4 g/dL (30.0-36.0); Mean Corpuscular Volume 98.6 fl (81-99); Mean Platelet Volume 9.9 fL (7.4-10.4); Monocytes # 0.3 10^3/uL (0.2-0.9); Monocytes % 4.2 %; Neutrophils # 5.12 10^3/uL (1.8-7.7); Neutrophils % 78.8 %; Nucleated Red Blood Cells % 0 %; Platelet Count 164 10^3/cmm (130-400); Red Blood Count 3.58 10^6/uL (4.1-5.3); Red Cell Distribution Width 13.4 % (12.1-15.1); White Blood Count 6.5 10^3/uL (4.0-10.0)
[2023-05-06 14:45] LABS: Erythrocyte Sedimentation Rate 59 mm/hr (0-15)
[2023-05-06 14:52] LABS: Alanine Aminotransferase 18 U/L (0-33); Albumin Level 4.2 g/dL (3.5-5.2); Alkaline Phosphatase 67 U/L (35-105); Aspartate Amino Transferase 15 U/L (0-32); Blood Urea Nitrogen 15 mg/dL (8-23); C Reactive Protein 257.6 mg/L (0.0-4.9); CA 15-3 46.8 U/mL (0-25); Carbon Dioxide 24 mmol/L (22-29); Chloride 95 mmol/L (98-107); Globulin 3.5 g/dL (1.3-4.6); Glomerular Filtration Rate 49.4 mL/min (90-130); Glucose 91 mg/dL (65-115); Osmolality Calculated 270 mOsm/kg (285-295); Sodium 130 mmol/L (136-145); Total Bilirubin 0.5 mg/dL (0.15-1.2); Total Protein 7.7 g/dL (6.6-8.7)
[2023-05-06 14:54] LABS: Slide Review Slide Review Perform
[2023-05-06] MEDS: ertapenem 1,000 MG in sodium chloride 0.9% (plus) 100 ML 200 MG IV (15:35)
[2023-05-06 16:09] VITALS: BP 109/66; PULSE 81; RESP 16; TEMP 37.3; O2SAT 98
[2023-05-07 11:55] VITALS: BP 122/77; PULSE 92; RESP 16; TEMP 36.9; O2SAT 98
[2023-05-07] MEDS: ertapenem 1,000 MG in sodium chloride 0.9% (plus) 100 ML 200 MG IV (12:15)
[2023-05-07 13:00] VITALS: BP 122/79; PULSE 79; RESP 18; TEMP 36.8; O2SAT 99
[2023-05-09] MEDS: ertapenem 1,000 MG in sodium chloride 0.9% (plus) 100 ML 200 MG IV (11:55)
[2023-05-10] MEDS: ertapenem 1,000 MG in sodium chloride 0.9% (plus) 100 ML 200 MG IV (09:09)
[2023-05-10 09:45] VITALS: BP 116/64; RESP 18; TEMP 35.9; O2SAT 99
== END 2023-05-27 23:59 | disposition home or self-care (01) ==
PROVIDERS: PCP Family Medicine; Visit Provider Internal Medicine Medical Oncology
DX: L03.113 Cellulitis of right upper limb (principal)
CPT/HCPCS: 80053; 85025; 85651; 86140; 86300; 96365; 96366; 96372; 99214; J0897; J1335

== ENCOUNTER → 2023-06-04 07:58 | Outpatient (BNVA) | payer MEDICARE, SELFPAY | PROVIDERS: PCP Family Medicine; Visit Provider Nurse Practitioner Family | DX: C50.811 Malignant neoplasm of overlapping sites of right female breast (principal); Z17.0 Estrogen receptor positive status [ER+]; C79.51 Secondary malignant neoplasm of bone; R97.8 Other abnormal tumor markers; F71 Moderate intellectual disabilities; L03.113 Cellulitis of right upper limb; I89.0 Lymphedema, not elsewhere classified; Z79.2 Long term (current) use of antibiotics; Z79.899 Other long term (current) drug therapy; Z79.818 Long term (current) use of other agents affecting estrogen receptors and estrogen levels | CPT/HCPCS: 99213 ==

== ENCOUNTER 2023-06-11 12:15 | Oncology outpatient (recurring) (ONCR) | payer MEDICARE, OTHER, SELFPAY ==
[2023-05-29 10:26] VITALS: BMI 27.7
[2023-05-29 10:27] VITALS: BP 137/73; PULSE 89; RESP 17; TEMP 35.4; O2SAT 100
[2023-05-29 11:08] LABS: Basophils % 0.9 %; Eosinophils % 0.9 %; Hematocrit 35.5 % (37.0-47.0); Hemoglobin 11.8 g/dL (11.5-15.3); Lymphocytes # 0.9 10^3/uL (0.8-4.8); Lymphocytes % 26.4 %; Mean Corpuscular HGB Conc 33.2 g/dL (30.0-36.0); Mean Corpuscular Hemoglobin 33.3 pg (28.0-34.0); Mean Corpuscular Volume 100.3 fl (81-99); Mean Platelet Volume 9.4 fL (7.4-10.4); Monocytes # 0.2 10^3/uL (0.2-0.9); Monocytes % 6.1 %; Neutrophils # 2.16 10^3/uL (1.8-7.7); Neutrophils % 65.4 %; Nucleated Red Blood Cells % 0 %; Platelet Count 206 10^3/cmm (130-400); Red Blood Count 3.54 10^6/uL (4.1-5.3); Red Cell Distribution Width 13.1 % (12.1-15.1); White Blood Count 3.3 10^3/uL (4.0-10.0)
[2023-05-29 11:30] LABS: Slide Review Slide Review Perform
[2023-05-29 11:33] LABS: Alanine Aminotransferase 14 U/L (0-33); Albumin Level 4.2 g/dL (3.5-5.2); Alkaline Phosphatase 52 U/L (35-105); Anion Gap 14.1 (5-19); Aspartate Amino Transferase 15 U/L (0-32); Blood Urea Nitrogen 15 mg/dL (8-23); C Reactive Protein 75.6 mg/L (0.0-4.9); Calcium 9.3 mg/dL (8.5-10.5); Carbon Dioxide 25 mmol/L (22-29); Chloride 101 mmol/L (98-107); Globulin 3.1 g/dL (1.3-4.6); Glomerular Filtration Rate 55.1 mL/min (90-130); Glucose 107 mg/dL (65-115); Osmolality Calculated 283 mOsm/kg (285-295); Potassium 4.1 mmol/L (3.5-5.1); Sodium 136 mmol/L (136-145); Total Bilirubin 0.5 mg/dL (0.15-1.2); Total Protein 7.3 g/dL (6.6-8.7)
[2023-05-29] MEDS: ertapenem 1,000 MG in sodium chloride 0.9% (plus) 100 ML 200 MG IV (14:28)
[2023-05-29 15:16] LABS: CA 15-3 45.9 U/mL (0-25)
[2023-05-30] MEDS: ertapenem 1,000 MG in sodium chloride 0.9% (plus) 100 ML 200 MG IV (09:50)
[2023-05-30 10:25] VITALS: BP 120/73; PULSE 82; RESP 18; TEMP 36.4; O2SAT 99
[2023-05-30] MEDS: denosumab 120 mg SDV SUBCUT (11:18)
[2023-05-31 10:00] VITALS: BMI 28.1
[2023-05-31 10:03] VITALS: BP 128/79; PULSE 82; RESP 18; TEMP 36.1; O2SAT 95
[2023-05-31] MEDS: ertapenem 1,000 MG in sodium chloride 0.9% (plus) 100 ML 200 MG IV (11:02)
[2023-06-01 10:10] VITALS: BP 123/76; PULSE 72; RESP 16; TEMP 36.6; O2SAT 99
[2023-06-01] MEDS: ertapenem 1,000 MG in sodium chloride 0.9% (plus) 100 ML 200 MG IV (10:30)
[2023-06-01 11:10] VITALS: BP 121/79; PULSE 74; RESP 16; TEMP 36.6; O2SAT 99
[2023-06-02 10:03] VITALS: BP 132/78; PULSE 84; RESP 16; TEMP 36.4; O2SAT 99
[2023-06-02] MEDS: ertapenem 1,000 MG in sodium chloride 0.9% (plus) 100 ML 200 MG IV (10:09)
[2023-06-02 10:52] VITALS: BP 130/75; PULSE 86; RESP 18; TEMP 36.4; O2SAT 99
[2023-06-03 09:55] VITALS: BP 129/73; PULSE 86; RESP 18; TEMP 36.7; O2SAT 99
[2023-06-03] MEDS: sodium chloride 0.9% 250 ML 75 ML IV (10:00)
[2023-06-03] MEDS: ertapenem 1,000 MG in sodium chloride 0.9% (plus) 100 ML 200 MG IV (10:16)
[2023-06-03 10:53] VITALS: BP 120/75; PULSE 65; RESP 18; TEMP 36.8; O2SAT 99
[2023-06-04] MEDS: ertapenem 1,000 MG in sodium chloride 0.9% (plus) 100 ML 200 MG IV (08:31)
[2023-06-04] MEDS: sodium chloride 0.9% (100 ml) 100 ML 75 ML (08:31)
[2023-06-04 08:49] VITALS: BMI 28.3
[2023-06-04 08:51] LABS: Hematocrit 34.2 % (37.0-47.0); Hemoglobin 11.4 g/dL (11.5-15.3); Lymphocytes # 0.8 10^3/uL (0.8-4.8); Lymphocytes % 38.8 %; Mean Corpuscular HGB Conc 33.3 g/dL (30.0-36.0); Mean Corpuscular Volume 99.1 fl (81-99); Mean Platelet Volume 9.7 fL (7.4-10.4); Monocytes # 0.2 10^3/uL (0.2-0.9); Monocytes % 9.2 %; Nucleated Red Blood Cells % 0 %; Platelet Count 183 10^3/cmm (130-400); Red Blood Count 3.45 10^6/uL (4.1-5.3)
[2023-06-04 08:55] LABS: Alanine Aminotransferase 15 U/L (0-33); Alkaline Phosphatase 54 U/L (35-105); Anion Gap 13.5 (5-19); Aspartate Amino Transferase 17 U/L (0-32); Blood Urea Nitrogen 20 mg/dL (8-23); Calcium 8.8 mg/dL (8.5-10.5); Carbon Dioxide 27 mmol/L (22-29); Chloride 106 mmol/L (98-107); Globulin 2.6 g/dL (1.3-4.6); Glomerular Filtration Rate 62.1 mL/min (90-130); Glucose 132 mg/dL (65-115); Osmolality Calculated 298 mOsm/kg (285-295); Potassium 4.5 mmol/L (3.5-5.1); Sodium 142 mmol/L (136-145); Total Bilirubin 0.2 mg/dL (0.15-1.2); Total Protein 6.6 g/dL (6.6-8.7)
[2023-06-04 09:25] VITALS: BP 122/71; PULSE 78; RESP 18; TEMP 36.7; O2SAT 98
[2023-06-04 09:35] LABS: Neutrophils # 0.94 10^3/uL (1.8-7.7); Slide Review Slide Review Perform
[2023-06-05 09:20] VITALS: BP 109/66; PULSE 77; RESP 18; TEMP 37.1; O2SAT 98
[2023-06-05] MEDS: ertapenem 1,000 MG in sodium chloride 0.9% (plus) 100 ML 200 MG IV (09:31)
[2023-06-05 10:09] VITALS: BP 111/75; PULSE 73; RESP 16; TEMP 35.9; O2SAT 99
[2023-06-06 09:05] VITALS: BP 129/75; PULSE 70; RESP 18; TEMP 36.4; O2SAT 99
[2023-06-06] MEDS: ertapenem 1,000 MG in sodium chloride 0.9% (plus) 100 ML 180 MG IV (09:23)
[2023-06-07] MEDS: ertapenem 1,000 MG in sodium chloride 0.9% (plus) 100 ML 200 MG IV (09:33)
[2023-06-07 10:15] VITALS: BP 119/74; PULSE 69; RESP 16; TEMP 36.2; O2SAT 99
[2023-06-11 12:23] VITALS: BP 134/66; PULSE 97; RESP 18; TEMP 36.9; O2SAT 97
[2023-06-11 12:24] VITALS: BMI 28.5
[2023-06-11 12:36] LABS: Basophils # 0.1 10^3/uL (0.0-0.1); Basophils % 2.2 %; Eosinophils % 1.2 %; Hemoglobin 11.4 g/dL (11.5-15.3); Lymphocytes % 30.8 %; Mean Corpuscular HGB Conc 33.5 g/dL (30.0-36.0); Mean Corpuscular Hemoglobin 32.6 pg (28.0-34.0); Mean Corpuscular Volume 97.1 fl (81-99); Mean Platelet Volume 9.5 fL (7.4-10.4); Monocytes # 0.3 10^3/uL (0.2-0.9); Monocytes % 7.7 %; Neutrophils # 1.88 10^3/uL (1.8-7.7); Neutrophils % 57.8 %; Nucleated Red Blood Cells % 0 %; Platelet Count 191 10^3/cmm (130-400); Red Cell Distribution Width 13.3 % (12.1-15.1); White Blood Count 3.3 10^3/uL (4.0-10.0)
[2023-06-11 12:56] LABS: Alanine Aminotransferase 19 U/L (0-33); Albumin Level 4.3 g/dL (3.5-5.2); Alkaline Phosphatase 57 U/L (35-105); Anion Gap 16.6 (5-19); Aspartate Amino Transferase 24 U/L (0-32); Blood Urea Nitrogen 23 mg/dL (8-23); Calcium 9.2 mg/dL (8.5-10.5); Carbon Dioxide 23 mmol/L (22-29); Chloride 105 mmol/L (98-107); Creatinine Clr Calc Pharmacy 50.0957; Globulin 2.7 g/dL (1.3-4.6); Glomerular Filtration Rate 62.1 mL/min (90-130); Glucose 116 mg/dL (65-115); Osmolality Calculated 295 mOsm/kg (285-295); Potassium 4.6 mmol/L (3.5-5.1); Sodium 140 mmol/L (136-145); Total Bilirubin 0.2 mg/dL (0.15-1.2)
== END 2023-06-27 23:59 | disposition home or self-care (01) ==
PROVIDERS: PCP Family Medicine; Visit Provider Internal Medicine Medical Oncology
DX: C50.111 Malignant neoplasm of central portion of right female breast (principal); C79.51 Secondary malignant neoplasm of bone
CPT/HCPCS: 36415; 80053; 85025; 86140; 86300; 87040; 96365; 96372; 99213; 99214; J0897; J1335; J1642; J7050

== ENCOUNTER 2023-06-27 08:00 | Outpatient (RCR) | payer MEDICARE, OTHER, SELFPAY | END 2023-06-27 23:59 | disposition home or self-care (01) | LOC: SPT 08:00 | PROVIDERS: Visit Provider Internal Medicine Medical Oncology | DX: I89.0 Lymphedema, not elsewhere classified (principal) | CPT/HCPCS: 29584; 97140; 97161 ==

== ENCOUNTER 2023-06-28 06:00 | Outpatient (RCR) | payer MEDICARE, SELFPAY | END 2023-07-27 23:59 | disposition home or self-care (01) | LOC: SPT 06:00 | PROVIDERS: PCP Family Medicine; Visit Provider Internal Medicine Medical Oncology | DX: I97.2 Postmastectomy lymphedema syndrome (principal) | CPT/HCPCS: 29584; 97140 ==

== ENCOUNTER 2023-07-09 10:29 | Oncology outpatient (recurring) (ONCR) | payer MEDICARE, SELFPAY ==
[2023-07-09 10:32] VITALS: BP 145/85; PULSE 81; RESP 18; TEMP 36.5; O2SAT 99
[2023-07-09 10:43] LABS: Basophils # 0.1 10^3/uL (0.0-0.1); Basophils % 2.7 %; Eosinophils # 0.1 10^3/uL (0.0-0.8); Eosinophils % 2.3 %; Hematocrit 34.1 % (36-47); Lymphocytes % 34.2 %; Mean Corpuscular HGB Conc 32.6 g/dL (30-55); Mean Corpuscular Hemoglobin 32.2 pg (27-33); Mean Corpuscular Volume 98.8 fl (85-98); Mean Platelet Volume 9.6 fL (7.4-10.4); Monocytes # 0.3 10^3/uL (0.2-0.9); Monocytes % 10.1 %; Neutrophils % 50.4 %; Nucleated Red Blood Cells % 0 %; Platelet Count 196 10^3/cmm (157-399); Red Blood Count 3.45 10^6/uL (3.85-5.65); Red Cell Distribution Width 13.5 % (12.1-15.1); White Blood Count 2.98 10^3/uL (3.29-11.43)
[2023-07-09 11:21] LABS: Alanine Aminotransferase 14 U/L (0-33); Alkaline Phosphatase 53 U/L (35-105); Anion Gap 12.4 (5-19); Aspartate Amino Transferase 17 U/L (0-32); Blood Urea Nitrogen 20 mg/dL (8-23); CA 15-3 45.9 U/mL (0-25); Calcium 9.4 mg/dL (8.5-10.5); Carbon Dioxide 26 mmol/L (22-29); Chloride 105 mmol/L (98-107); Globulin 2.3 g/dL (1.3-4.6); Glomerular Filtration Rate 62.1 mL/min (90-130); Glucose 87 mg/dL (65-115); Osmolality Calculated 290 mOsm/kg (285-295); Potassium 4.4 mmol/L (3.5-5.1); Sodium 139 mmol/L (136-145); Total Bilirubin 0.2 mg/dL (0.15-1.2); Total Protein 7.3 g/dL (6.6-8.7)
[2023-07-09] MEDS: denosumab 120 mg SDV SUBCUT (12:57)
[2023-07-09 13:32] LABS: Magnesium 2.3 mg/dL (1.7-2.3)
== END 2023-07-27 23:59 | disposition home or self-care (01) ==
PROVIDERS: Nurse Practitioner Family; PCP Family Medicine; Visit Provider Internal Medicine Medical Oncology
DX: C50.911 Malignant neoplasm of unspecified site of right female breast; I89.0 Lymphedema, not elsewhere classified; Z17.0 Estrogen receptor positive status [ER+]; C79.51 Secondary malignant neoplasm of bone; Z51.11 Encounter for antineoplastic chemotherapy; Z53.9 Procedure and treatment not carried out, unspecified reason
CPT/HCPCS: 36415; 80053; 83735; 85025; 86140; 86300; 96401; 99214; J0897

== ENCOUNTER 2023-07-28 06:00 | Outpatient (RCR) | payer MEDICARE, SELFPAY | END 2023-08-27 23:59 | disposition home or self-care (01) | LOC: SPT 06:00 | PROVIDERS: PCP Family Medicine; Visit Provider Internal Medicine Medical Oncology | DX: I97.2 Postmastectomy lymphedema syndrome (principal) | CPT/HCPCS: 29584; 97140 ==

== ENCOUNTER 2023-08-06 10:00 | Oncology outpatient (recurring) (ONCR) | payer MEDICARE, SELFPAY ==
[2023-08-06 10:04] VITALS: BP 145/81; PULSE 76; RESP 16; TEMP 36.9; O2SAT 98
[2023-08-06 10:23] LABS: Basophils # 0.1 10^3/uL (0.0-0.1); Basophils % 2.2 %; Eosinophils % 1.3 %; Hematocrit 33.7 % (36-47); Lymphocytes % 42.9 %; Mean Corpuscular HGB Conc 33.8 g/dL (30-55); Mean Corpuscular Hemoglobin 33.3 pg (27-33); Mean Corpuscular Volume 98.5 fl (85-98); Mean Platelet Volume 9.8 fL (7.4-10.4); Monocytes # 0.3 10^3/uL (0.2-0.9); Monocytes % 11.1 %; Neutrophils % 42.5 %; Nucleated Red Blood Cells % 0 %; Platelet Count 156 10^3/cmm (157-399); Red Blood Count 3.42 10^6/uL (3.85-5.65); Red Cell Distribution Width 13.6 % (12.1-15.1); White Blood Count 2.26 10^3/uL (3.29-11.43)
[2023-08-06 10:50] LABS: Alanine Aminotransferase 18 U/L (0-33); Albumin Level 4.3 g/dL (3.5-5.2); Alkaline Phosphatase 48 U/L (35-105); Anion Gap 12.9 (5-19); Aspartate Amino Transferase 21 U/L (0-32); Blood Urea Nitrogen 17 mg/dL (8-23); CA 15-3 41.3 U/mL (0-25); Calcium 9.3 mg/dL (8.5-10.5); Carbon Dioxide 29 mmol/L (22-29); Chloride 102 mmol/L (98-107); Globulin 2.6 g/dL (1.3-4.6); Glomerular Filtration Rate 62.1 mL/min (90-130); Glucose 92 mg/dL (65-115); Osmolality Calculated 291 mOsm/kg (285-295); Potassium 3.9 mmol/L (3.5-5.1); Sodium 140 mmol/L (136-145); Total Bilirubin 0.3 mg/dL (0.15-1.2); Total Protein 6.9 g/dL (6.6-8.7)
[2023-08-06 11:47] LABS: Neutrophils # 0.96 10^3/uL (1.8-7.7)
[2023-08-06] MEDS: denosumab 120 mg SDV SUBCUT (12:15)
== END 2023-08-27 23:59 | disposition home or self-care (01) ==
PROVIDERS: PCP Family Medicine; Visit Provider Internal Medicine Medical Oncology
DX: C50.111 Malignant neoplasm of central portion of right female breast (principal); C79.51 Secondary malignant neoplasm of bone; Z45.2 Encounter for adjustment and management of vascular access device; Z79.899 Other long term (current) drug therapy; Z79.2 Long term (current) use of antibiotics; Z85.3 Personal history of malignant neoplasm of breast; Z92.3 Personal history of irradiation; L03.113 Cellulitis of right upper limb; Z92.21 Personal history of antineoplastic chemotherapy; Z90.11 Acquired absence of right breast and nipple; I97.2 Postmastectomy lymphedema syndrome
CPT/HCPCS: 36415; 80053; 85025; 86300; 96372; 99214; J0897

== ENCOUNTER 2023-08-28 06:00 | Outpatient (RCR) | payer MEDICARE, SELFPAY | END 2023-09-26 23:59 | disposition home or self-care (01) | LOC: SPT 06:00 | PROVIDERS: PCP Family Medicine; Visit Provider Internal Medicine Medical Oncology | DX: I89.0 Lymphedema, not elsewhere classified (principal) | CPT/HCPCS: 29584; 97140 ==

== ENCOUNTER 2023-09-03 12:43 | Oncology outpatient (recurring) (ONCR) | payer MEDICARE, SELFPAY ==
[2023-09-03 12:56] VITALS: BP 138/78; PULSE 94; RESP 16; TEMP 36.4; O2SAT 96
[2023-09-03 13:15] LABS: Basophils # 0.1 10^3/uL (0.0-0.1); Basophils % 2.2 %; Eosinophils % 0.7 %; Hematocrit 34.9 % (36-47); Lymphocytes % 35.7 %; Mean Corpuscular HGB Conc 33.5 g/dL (30-55); Mean Corpuscular Hemoglobin 33.7 pg (27-33); Mean Corpuscular Volume 100.6 fl (85-98); Mean Platelet Volume 9.4 fL (7.4-10.4); Monocytes # 0.3 10^3/uL (0.2-0.9); Monocytes % 9.9 %; Neutrophils # 1.39 10^3/uL (1.8-7.7); Neutrophils % 51.1 %; Nucleated Red Blood Cells % 0 %; Platelet Count 163 10^3/cmm (157-399); Red Blood Count 3.47 10^6/uL (3.85-5.65); Red Cell Distribution Width 13.8 % (12.1-15.1); White Blood Count 2.72 10^3/uL (3.29-11.43)
[2023-09-03] MEDS: denosumab 120 mg SDV SUBCUT (13:28)
== END 2023-09-26 23:59 | disposition home or self-care (01) ==
LOC: ONCMED 12:44
PROVIDERS: PCP Family Medicine; Visit Provider Internal Medicine Medical Oncology
DX: Z51.11 Encounter for antineoplastic chemotherapy; C79.51 Secondary malignant neoplasm of bone
CPT/HCPCS: 36415; 85025; 96372; J0897

== ENCOUNTER 2023-10-02 12:31 | Oncology outpatient (recurring) (ONCR) | payer MEDICARE, SELFPAY ==
[2023-10-02 12:57] VITALS: BP 130/54; PULSE 75; RESP 16; TEMP 36.7; O2SAT 98
[2023-10-02 13:10] LABS: Basophils % 1.5 %; Eosinophils % 1.1 %; Hematocrit 33.2 % (36-47); Lymphocytes # 0.9 10^3/uL (0.8-4.8); Lymphocytes % 35.1 %; Mean Corpuscular HGB Conc 33.7 g/dL (30-55); Mean Corpuscular Hemoglobin 33.9 pg (27-33); Mean Corpuscular Volume 100.6 fl (85-98); Mean Platelet Volume 9.6 fL (7.4-10.4); Monocytes # 0.3 10^3/uL (0.2-0.9); Monocytes % 12.6 %; Neutrophils # 1.28 10^3/uL (1.8-7.7); Neutrophils % 48.9 %; Nucleated Red Blood Cells % 0 %; Platelet Count 156 10^3/cmm (157-399); Red Cell Distribution Width 13.3 % (12.1-15.1); White Blood Count 2.62 10^3/uL (3.29-11.43)
[2023-10-02] MEDS: denosumab 120 mg SDV SUBCUT (13:46)
== END 2023-10-27 23:59 | disposition home or self-care (01) ==
PROVIDERS: PCP Family Medicine; Visit Provider Internal Medicine Medical Oncology
DX: Z51.11 Encounter for antineoplastic chemotherapy (principal); C79.51 Secondary malignant neoplasm of bone; I97.2 Postmastectomy lymphedema syndrome
CPT/HCPCS: 36415; 85025; 96372; J0897

== ENCOUNTER 2023-10-30 13:30 | Oncology outpatient (recurring) (ONCR) | payer MEDICARE, SELFPAY ==
[2023-10-29 12:45] VITALS: BP 147/68; PULSE 99; RESP 16; TEMP 37.1; O2SAT 97
[2023-10-29 12:51] LABS: Basophils # 0.1 10^3/uL (0.0-0.1); Eosinophils # 0.1 10^3/uL (0.0-0.8); Eosinophils % 2.1 %; Hematocrit 36.9 % (36-47); Lymphocytes # 1.5 10^3/uL (0.8-4.8); Lymphocytes % 27.9 %; Mean Corpuscular HGB Conc 32.8 g/dL (30-55); Mean Corpuscular Hemoglobin 32.4 pg (27-33); Mean Corpuscular Volume 98.9 fl (85-98); Mean Platelet Volume 10.9 fL (7.4-10.4); Monocytes # 0.5 10^3/uL (0.2-0.9); Monocytes % 8.6 %; Neutrophils # 3.14 10^3/uL (1.8-7.7); Nucleated Red Blood Cells % 0 %; Platelet Count 210 10^3/cmm (157-399); Red Blood Count 3.73 10^6/uL (3.85-5.65); Red Cell Distribution Width 12.6 % (12.1-15.1); White Blood Count 5.23 10^3/uL (3.29-11.43)
[2023-10-29 13:20] LABS: Alanine Aminotransferase 26 U/L (0-33); Albumin Level 4.2 g/dL (3.5-5.2); Alkaline Phosphatase 53 U/L (35-105); Anion Gap 15.5 (5-19); Aspartate Amino Transferase 22 U/L (0-32); Blood Urea Nitrogen 16 mg/dL (8-23); Calcium 9.4 mg/dL (8.5-10.5); Carbon Dioxide 25 mmol/L (22-29); Chloride 103 mmol/L (98-107); Globulin 2.9 g/dL (1.3-4.6); Glomerular Filtration Rate 62.1 mL/min (90-130); Glucose 95 mg/dL (65-115); Osmolality Calculated 289 mOsm/kg (285-295); Potassium 4.5 mmol/L (3.5-5.1); Sodium 139 mmol/L (136-145); Total Bilirubin 0.2 mg/dL (0.15-1.2); Total Protein 7.1 g/dL (6.6-8.7)
[2023-10-29 14:40] LABS: CA 15-3 38.1 U/mL (0-25)
[2023-10-30 14:08] VITALS: BP 135/63; PULSE 69; RESP 16; TEMP 37.3; O2SAT 97
[2023-10-30] MEDS: denosumab 120 mg SDV SUBCUT (14:40)
== END 2023-11-27 23:59 | disposition home or self-care (01) ==
PROVIDERS: PCP Family Medicine; Visit Provider Internal Medicine Medical Oncology
DX: C79.51 Secondary malignant neoplasm of bone (principal); Z53.9 Procedure and treatment not carried out, unspecified reason; Z51.11 Encounter for antineoplastic chemotherapy
CPT/HCPCS: 36415; 80053; 85025; 86300; 96372; 99214; J0897

== ENCOUNTER 2023-12-25 12:45 | Oncology outpatient (recurring) (ONCR) | payer MEDICARE, SELFPAY ==
[2023-12-12 10:37] LABS: Basophils % 1.1 %; Eosinophils % 0.4 %; Hematocrit 35.6 % (36-47); Lymphocytes # 1.1 10^3/uL (0.8-4.8); Mean Corpuscular HGB Conc 32.9 g/dL (30-55); Mean Corpuscular Hemoglobin 32.1 pg (27-33); Mean Corpuscular Volume 97.5 fl (85-98); Mean Platelet Volume 9.7 fL (7.4-10.4); Monocytes # 0.3 10^3/uL (0.2-0.9); Monocytes % 9.5 %; Neutrophils % 47.6 %; Nucleated Red Blood Cells % 0 %; Platelet Count 192 10^3/cmm (157-399); Red Blood Count 3.65 10^6/uL (3.85-5.65); Red Cell Distribution Width 14.1 % (12.1-15.1); White Blood Count 2.73 10^3/uL (3.29-11.43)
[2023-12-12 11:10] LABS: Alanine Aminotransferase 19 U/L (0-33); Albumin Level 4.3 g/dL (3.5-5.2); Alkaline Phosphatase 57 U/L (35-105); Anion Gap 14.2 (5-19); Aspartate Amino Transferase 24 U/L (0-32); Blood Urea Nitrogen 11 mg/dL (8-23); CA 15-3 38.3 U/mL (0-25); Carbon Dioxide 26 mmol/L (22-29); Chloride 101 mmol/L (98-107); Globulin 2.6 g/dL (1.3-4.6); Glomerular Filtration Rate 62.1 mL/min (90-130); Glucose 104 mg/dL (65-115); Osmolality Calculated 284 mOsm/kg (285-295); Potassium 4.2 mmol/L (3.5-5.1); Sodium 137 mmol/L (136-145); Total Bilirubin 0.3 mg/dL (0.15-1.2); Total Protein 6.9 g/dL (6.6-8.7)
[2023-12-12] MEDS: denosumab 120 mg SDV SUBCUT (11:53)
== END 2023-12-26 23:59 | disposition home or self-care (01) ==
PROVIDERS: PCP Family Medicine; Visit Provider Internal Medicine Medical Oncology
DX: Z53.9 Procedure and treatment not carried out, unspecified reason (principal)
CPT/HCPCS: 36415; 80053; 85025; 86300; 96372; 99214; J0897

== ENCOUNTER 2024-01-16 11:15 | Oncology outpatient (recurring) (ONCR) | payer MEDICARE, SELFPAY ==
[2024-01-09 09:31] LABS: Basophils # 0.1 10^3/uL (0.0-0.1); Basophils % 2.4 %; Eosinophils % 0.9 %; Hematocrit 36.4 % (36-47); Lymphocytes % 45.5 %; Mean Corpuscular HGB Conc 33.2 g/dL (30-55); Mean Corpuscular Hemoglobin 31.8 pg (27-33); Mean Corpuscular Volume 95.8 fl (85-98); Mean Platelet Volume 9.8 fL (7.4-10.4); Monocytes # 0.3 10^3/uL (0.2-0.9); Monocytes % 13.7 %; Neutrophils % 37.5 %; Nucleated Red Blood Cells % 0 %; Platelet Count 169 10^3/cmm (157-399); Red Cell Distribution Width 15.2 % (12.1-15.1); White Blood Count 2.11 10^3/uL (3.29-11.43)
[2024-01-09 10:00] LABS: Alanine Aminotransferase 18 U/L (0-33); Albumin Level 4.5 g/dL (3.5-5.2); Alkaline Phosphatase 56 U/L (35-105); Anion Gap 13.2 (5-19); Aspartate Amino Transferase 21 U/L (0-32); Blood Urea Nitrogen 23 mg/dL (8-23); CA 15-3 38.4 U/mL (0-25); Calcium 9.5 mg/dL (8.5-10.5); Carbon Dioxide 26 mmol/L (22-29); Chloride 105 mmol/L (98-107); Globulin 2.6 g/dL (1.3-4.6); Glomerular Filtration Rate 62.1 mL/min (90-130); Glucose 112 mg/dL (65-115); Osmolality Calculated 294 mOsm/kg (285-295); Potassium 4.2 mmol/L (3.5-5.1); Sodium 140 mmol/L (136-145); Total Bilirubin 0.2 mg/dL (0.15-1.2); Total Protein 7.1 g/dL (6.6-8.7)
[2024-01-09 10:31] LABS: Neutrophils # 0.79 10^3/uL (1.8-7.7)
[2024-01-09] MEDS: denosumab 120 mg SDV SUBCUT (11:14)
[2024-01-16 11:19] LABS: Basophils # 0.1 10^3/uL (0.0-0.1); Basophils % 2.4 %; Eosinophils % 0.6 %; Hematocrit 36.2 % (36-47); Lymphocytes # 1.3 10^3/uL (0.8-4.8); Lymphocytes % 39.4 %; Mean Corpuscular HGB Conc 32.6 g/dL (30-55); Mean Corpuscular Hemoglobin 31.7 pg (27-33); Mean Corpuscular Volume 97.3 fl (85-98); Mean Platelet Volume 9.7 fL (7.4-10.4); Monocytes # 0.5 10^3/uL (0.2-0.9); Monocytes % 15.2 %; Neutrophils # 1.39 10^3/uL (1.8-7.7); Neutrophils % 42.1 %; Nucleated Red Blood Cells % 0 %; Platelet Count 218 10^3/cmm (157-399); Red Blood Count 3.72 10^6/uL (3.85-5.65); Red Cell Distribution Width 15.4 % (12.1-15.1)
== END 2024-01-26 23:59 | disposition home or self-care (01) ==
PROVIDERS: Nurse Practitioner Family; PCP Family Medicine; Visit Provider Internal Medicine Medical Oncology
DX: C50.111 Malignant neoplasm of central portion of right female breast (principal); Z53.9 Procedure and treatment not carried out, unspecified reason
CPT/HCPCS: 36415; 80053; 85025; 86300; 96372; 99214; J0897

== ENCOUNTER 2024-02-12 12:37 | Oncology outpatient (recurring) (ONCR) | payer MEDICARE, SELFPAY ==
[2024-02-12 13:23] LABS: Basophils # 0.1 10^3/uL (0.0-0.1); Basophils % 2.2 %; Eosinophils % 0.9 %; Hematocrit 33.4 % (36-47); Lymphocytes # 0.8 10^3/uL (0.8-4.8); Mean Corpuscular HGB Conc 32.9 g/dL (30-55); Mean Corpuscular Hemoglobin 32.3 pg (27-33); Mean Corpuscular Volume 97.9 fl (85-98); Mean Platelet Volume 9.5 fL (7.4-10.4); Monocytes # 0.3 10^3/uL (0.2-0.9); Monocytes % 12.4 %; Neutrophils # 1.11 10^3/uL (1.8-7.7); Neutrophils % 49.1 %; Nucleated Red Blood Cells % 0 %; Platelet Count 161 10^3/cmm (157-399); Red Blood Count 3.41 10^6/uL (3.85-5.65); Red Cell Distribution Width 16.1 % (12.1-15.1); White Blood Count 2.26 10^3/uL (3.29-11.43)
[2024-02-12 13:58] LABS: Alanine Aminotransferase 18 U/L (0-33); Albumin Level 4.3 g/dL (3.5-5.2); Alkaline Phosphatase 57 U/L (35-105); Anion Gap 14.5 (5-19); Aspartate Amino Transferase 21 U/L (0-32); Blood Urea Nitrogen 18 mg/dL (8-23); CA 15-3 35.9 U/mL (0-25); Calcium 8.9 mg/dL (8.5-10.5); Carbon Dioxide 24 mmol/L (22-29); Chloride 106 mmol/L (98-107); Creatinine Clr Calc Pharmacy 37.0968; Globulin 2.8 g/dL (1.3-4.6); Glomerular Filtration Rate 44.5 mL/min (90-130); Glucose 121 mg/dL (65-115); Osmolality Calculated 293 mOsm/kg (285-295); Potassium 4.5 mmol/L (3.5-5.1); Sodium 140 mmol/L (136-145); Total Bilirubin 0.2 mg/dL (0.15-1.2); Total Protein 7.1 g/dL (6.6-8.7)
[2024-02-12] MEDS: denosumab 120 mg SDV SUBCUT (14:37)
== END 2024-02-25 23:59 | disposition home or self-care (01) ==
PROVIDERS: Nurse Practitioner Family; PCP Family Medicine; Visit Provider Internal Medicine Medical Oncology
DX: C50.111 Malignant neoplasm of central portion of right female breast (principal); Z53.9 Procedure and treatment not carried out, unspecified reason; Z51.11 Encounter for antineoplastic chemotherapy; C79.51 Secondary malignant neoplasm of bone; I97.2 Postmastectomy lymphedema syndrome; R97.8 Other abnormal tumor markers; Z79.899 Other long term (current) drug therapy
CPT/HCPCS: 36415; 80053; 85025; 86300; 96372; 99214; J0897

== ENCOUNTER 2024-03-11 12:41 | Oncology outpatient (recurring) (ONCR) | payer MEDICARE, SELFPAY ==
[2024-03-11 12:58] LABS: Basophils # 0.1 10^3/uL (0.0-0.1); Basophils % 1.6 %; Eosinophils % 1.2 %; Hematocrit 34.8 % (36-47); Lymphocytes % 30.8 %; Mean Corpuscular HGB Conc 33.9 g/dL (30-55); Mean Corpuscular Hemoglobin 32.8 pg (27-33); Mean Corpuscular Volume 96.7 fl (85-98); Mean Platelet Volume 10.4 fL (7.4-10.4); Monocytes # 0.2 10^3/uL (0.2-0.9); Monocytes % 7.5 %; Neutrophils # 1.89 10^3/uL (1.8-7.7); Neutrophils % 58.9 %; Nucleated Red Blood Cells % 0 %; Platelet Count 140 10^3/cmm (157-399); Red Cell Distribution Width 15.8 % (12.1-15.1); White Blood Count 3.21 10^3/uL (3.29-11.43)
[2024-03-11 13:27] LABS: Alanine Aminotransferase 19 U/L (0-33); Albumin Level 4.4 g/dL (3.5-5.2); Alkaline Phosphatase 63 U/L (35-105); Anion Gap 17.4 (5-19); Aspartate Amino Transferase 22 U/L (0-32); Blood Urea Nitrogen 24 mg/dL (8-23); CA 15-3 41.4 U/mL (0-25); Carbon Dioxide 23 mmol/L (22-29); Chloride 103 mmol/L (98-107); Globulin 3.4 g/dL (1.3-4.6); Glomerular Filtration Rate 40.6 mL/min (90-130); Glucose 124 mg/dL (65-115); Osmolality Calculated 293 mOsm/kg (285-295); Potassium 4.4 mmol/L (3.5-5.1); Sodium 139 mmol/L (136-145); Total Bilirubin 0.2 mg/dL (0.15-1.2); Total Protein 7.8 g/dL (6.6-8.7)
[2024-03-11 14:01] LABS: Slide Review Slide Review Perform
[2024-03-11] MEDS: denosumab 120 mg SDV SUBCUT (14:59)
[2024-03-11 15:00] VITALS: BP 129/77; PULSE 88; RESP 16; TEMP 36.6; O2SAT 100
== END 2024-03-27 23:59 | disposition home or self-care (01) ==
PROVIDERS: Nurse Practitioner Family; PCP Family Medicine; Visit Provider Internal Medicine Medical Oncology
DX: C50.111 Malignant neoplasm of central portion of right female breast (principal); C79.51 Secondary malignant neoplasm of bone; Z79.899 Other long term (current) drug therapy
CPT/HCPCS: 36415; 80053; 85025; 86300; 96372; 99214; J0897

== ENCOUNTER 2024-04-08 08:30 | Oncology outpatient (recurring) (ONCR) | payer MEDICARE, SELFPAY ==
[2024-04-08 08:51] LABS: Hematocrit 34.4 % (36-47); Mean Corpuscular HGB Conc 33.1 g/dL (30-55); Mean Corpuscular Hemoglobin 32.9 pg (27-33); Mean Corpuscular Volume 99.1 fl (85-98); Mean Platelet Volume 10.1 fL (7.4-10.4); Platelet Count 198 10^3/cmm (157-399); Red Blood Count 3.47 10^6/uL (3.85-5.65); Red Cell Distribution Width 15.3 % (12.1-15.1); White Blood Count 2.33 10^3/uL (3.29-11.43)
[2024-04-08 09:12] LABS: Alanine Aminotransferase 17 U/L (0-33); Albumin Level 4.5 g/dL (3.5-5.2); Alkaline Phosphatase 59 U/L (35-105); Anion Gap 14.4 (5-19); Aspartate Amino Transferase 20 U/L (0-32); Blood Urea Nitrogen 15 mg/dL (8-23); CA 15-3 39.8 U/mL (0-25); Calcium 9.5 mg/dL (8.5-10.5); Carbon Dioxide 26 mmol/L (22-29); Chloride 106 mmol/L (98-107); Globulin 3.1 g/dL (1.3-4.6); Glucose 123 mg/dL (65-115); Osmolality Calculated 296 mOsm/kg (285-295); Potassium 4.4 mmol/L (3.5-5.1); Sodium 142 mmol/L (136-145); Total Bilirubin 0.2 mg/dL (0.15-1.2); Total Protein 7.6 g/dL (6.6-8.7)
[2024-04-08 09:30] LABS: Slide Review Slide Review Perform
[2024-04-08 09:31] LABS: Absolute Eosinophils 0.1 10^3/cmm (0.0-0.7); Absolute Neutrophil 1.1 10^3/cmm (1.4-6.5); Absolute Segmented Neutrophil 1.1 10/cmm (1.6-7.1); Eosinophils 3 %; Lymphocytes 31 %; Monocytes Absolute 0.1 10^3/cmm (0.1-0.6); Platelet Estimate Normal (Normal); Segmented Neutrophils 48 %; Total Cells Counted 100 (0-100)
[2024-04-08] MEDS: denosumab 120 mg SDV SUBCUT (10:22)
== END 2024-04-26 23:59 | disposition home or self-care (01) ==
PROVIDERS: Nurse Practitioner Family; PCP Family Medicine; Visit Provider Internal Medicine Medical Oncology
DX: C50.111 Malignant neoplasm of central portion of right female breast (principal); C79.51 Secondary malignant neoplasm of bone; Z79.899 Other long term (current) drug therapy
CPT/HCPCS: 36415; 80053; 85007; 85025; 86300; 96372; 99213; J0897

== ENCOUNTER 2024-05-06 13:54 | Oncology outpatient (recurring) (ONCR) | payer MEDICARE, SELFPAY ==
[2024-05-06 14:16] LABS: Basophils # 0.1 10^3/uL (0.0-0.1); Basophils % 2.1 %; Eosinophils % 1.2 %; Hematocrit 34.9 % (36-47); Lymphocytes # 0.9 10^3/uL (0.8-4.8); Lymphocytes % 27.7 %; Mean Corpuscular HGB Conc 33.5 g/dL (30-55); Mean Corpuscular Hemoglobin 33.6 pg (27-33); Mean Corpuscular Volume 100.3 fl (85-98); Mean Platelet Volume 10.2 fL (7.4-10.4); Monocytes # 0.3 10^3/uL (0.2-0.9); Monocytes % 7.9 %; Neutrophils # 2.01 10^3/uL (1.8-7.7); Neutrophils % 61.1 %; Nucleated Red Blood Cells % 0 %; Platelet Count 191 10^3/cmm (157-399); Red Blood Count 3.48 10^6/uL (3.85-5.65); Red Cell Distribution Width 14.9 % (12.1-15.1); White Blood Count 3.29 10^3/uL (3.29-11.43)
[2024-05-06 14:46] LABS: Alanine Aminotransferase 16 U/L (0-33); Albumin Level 4.4 g/dL (3.5-5.2); Alkaline Phosphatase 67 U/L (35-105); Anion Gap 13.5 (5-19); Aspartate Amino Transferase 22 U/L (0-32); Blood Urea Nitrogen 20 mg/dL (8-23); Calcium 9.4 mg/dL (8.5-10.5); Carbon Dioxide 25 mmol/L (22-29); Chloride 105 mmol/L (98-107); Globulin 3.2 g/dL (1.3-4.6); Glucose 122 mg/dL (65-115); Osmolality Calculated 292 mOsm/kg (285-295); Potassium 4.5 mmol/L (3.5-5.1); Sodium 139 mmol/L (136-145); Total Bilirubin 0.2 mg/dL (0.15-1.2); Total Protein 7.6 g/dL (6.6-8.7)
[2024-05-06] MEDS: denosumab 120 mg SDV SUBCUT (16:24)
[2024-05-07 11:50] LABS: Magnesium 2.2 mg/dL (1.7-2.3)
[2024-05-07 12:04] LABS: Vitamin B12 1183 pg/mL (232-1245)
== END 2024-05-27 23:59 | disposition home or self-care (01) ==
PROVIDERS: Nurse Practitioner Family; PCP Family Medicine; Visit Provider Internal Medicine Medical Oncology
DX: C50.111 Malignant neoplasm of central portion of right female breast (principal); C79.51 Secondary malignant neoplasm of bone; Z17.0 Estrogen receptor positive status [ER+]; Z90.11 Acquired absence of right breast and nipple; Z79.899 Other long term (current) drug therapy; Z79.811 Long term (current) use of aromatase inhibitors; Z92.3 Personal history of irradiation; Z92.21 Personal history of antineoplastic chemotherapy; Z79.69 Long term (current) use of other immunomodulators and immunosuppressants
CPT/HCPCS: 36415; 80053; 82607; 83735; 85025; 86300; 96372; 99214; J0897

== ENCOUNTER 2024-06-03 12:48 | Oncology outpatient (recurring) (ONCR) | payer MEDICARE, SELFPAY ==
[2024-06-03 13:04] LABS: Basophils % 1.1 %; Eosinophils # 0.1 10^3/uL (0.0-0.8); Eosinophils % 3.9 %; Hematocrit 32.7 % (36-47); Lymphocytes # 0.9 10^3/uL (0.8-4.8); Lymphocytes % 30.9 %; Mean Corpuscular HGB Conc 32.7 g/dL (30-55); Mean Corpuscular Hemoglobin 33.1 pg (27-33); Mean Corpuscular Volume 101.2 fl (85-98); Mean Platelet Volume 10.1 fL (7.4-10.4); Monocytes # 0.2 10^3/uL (0.2-0.9); Neutrophils # 1.62 10^3/uL (1.8-7.7); Neutrophils % 56.7 %; Nucleated Red Blood Cells % 0 %; Platelet Count 171 10^3/cmm (157-399); Red Blood Count 3.23 10^6/uL (3.85-5.65); White Blood Count 2.85 10^3/uL (3.29-11.43)
[2024-06-03 13:32] LABS: Alanine Aminotransferase 17 U/L (0-33); Albumin Level 4.4 g/dL (3.5-5.2); Alkaline Phosphatase 62 U/L (35-105); Anion Gap 17.5 (5-19); Aspartate Amino Transferase 20 U/L (0-32); Blood Urea Nitrogen 19 mg/dL (8-23); CA 15-3 32.2 U/mL (0-25); Calcium 9.1 mg/dL (8.5-10.5); Carbon Dioxide 24 mmol/L (22-29); Chloride 103 mmol/L (98-107); Glomerular Filtration Rate 49.1 mL/min (90-130); Glucose 95 mg/dL (65-115); Osmolality Calculated 292 mOsm/kg (285-295); Potassium 4.5 mmol/L (3.5-5.1); Sodium 140 mmol/L (136-145); Total Bilirubin 0.2 mg/dL (0.15-1.2); Total Protein 7.4 g/dL (6.6-8.7)
[2024-06-03 13:58] LABS: Slide Review Slide Review Perform
[2024-06-03] MEDS: denosumab 120 mg SDV SUBCUT (15:32)
[2024-06-04 09:54] LABS: Ferritin 82 ng/mL (15-150); Iron 51 ug/dL (37-145); Percent Saturation 17.4 % (20-50); Total Iron Binding Capacity 293 mcg/dl; Unsaturated Iron Binding 242 ug/dL (112-347)
== END 2024-06-27 23:59 | disposition home or self-care (01) ==
PROVIDERS: Nurse Practitioner Family; PCP Family Medicine; Visit Provider Internal Medicine Medical Oncology
DX: C50.111 Malignant neoplasm of central portion of right female breast (principal); C79.51 Secondary malignant neoplasm of bone; Z92.3 Personal history of irradiation; Z17.0 Estrogen receptor positive status [ER+]; Z90.11 Acquired absence of right breast and nipple; Z79.899 Other long term (current) drug therapy; Z79.811 Long term (current) use of aromatase inhibitors; Z92.21 Personal history of antineoplastic chemotherapy; Z79.69 Long term (current) use of other immunomodulators and immunosuppressants; D64.9 Anemia, unspecified
CPT/HCPCS: 36415; 80053; 82728; 83540; 83550; 85025; 86300; 96377; 99214; J0897

== ENCOUNTER 2024-07-01 09:51 | Oncology outpatient (recurring) (ONCR) | payer MEDICARE, SELFPAY ==
[2024-07-01 10:35] LABS: Basophils # 0.1 10^3/uL (0.0-0.1); Basophils % 2.4 %; Eosinophils # 0.1 10^3/uL (0.0-0.8); Eosinophils % 3.4 %; Hematocrit 29.8 % (36-47); Lymphocytes # 0.6 10^3/uL (0.8-4.8); Lymphocytes % 20.9 %; Mean Corpuscular HGB Conc 32.9 g/dL (30-55); Mean Corpuscular Hemoglobin 33.4 pg (27-33); Mean Corpuscular Volume 101.7 fl (85-98); Mean Platelet Volume 9.8 fL (7.4-10.4); Monocytes # 0.2 10^3/uL (0.2-0.9); Monocytes % 6.5 %; Neutrophils # 1.94 10^3/uL (1.8-7.7); Neutrophils % 66.5 %; Nucleated Red Blood Cells % 0 %; Platelet Count 180 10^3/cmm (157-399); Red Blood Count 2.93 10^6/uL (3.85-5.65); Red Cell Distribution Width 14.6 % (12.1-15.1); White Blood Count 2.92 10^3/uL (3.29-11.43)
[2024-07-01 10:47] LABS: Slide Review Slide Review Perform
[2024-07-01 11:02] LABS: Alanine Aminotransferase 12 U/L (0-33); Alkaline Phosphatase 47 U/L (35-105); Anion Gap 13.7 (5-19); Aspartate Amino Transferase 21 U/L (0-32); Blood Urea Nitrogen 17 mg/dL (8-23); CA 15-3 30.6 U/mL (0-25); Calcium 8.7 mg/dL (8.5-10.5); Carbon Dioxide 24 mmol/L (22-29); Chloride 105 mmol/L (98-107); Globulin 2.6 g/dL (1.3-4.6); Glomerular Filtration Rate 54.8 mL/min (90-130); Glucose 114 mg/dL (65-115); Osmolality Calculated 288 mOsm/kg (285-295); Potassium 4.7 mmol/L (3.5-5.1); Sodium 138 mmol/L (136-145); Total Bilirubin 0.2 mg/dL (0.15-1.2); Total Protein 6.6 g/dL (6.6-8.7)
[2024-07-01 11:41] LABS: Folate Level > 20.0 ng/mL (4.8-37.3)
[2024-07-01] MEDS: denosumab 120 mg SDV SUBCUT (12:05)
== END 2024-07-27 23:59 | disposition home or self-care (01) ==
PROVIDERS: Nurse Practitioner Family; PCP Family Medicine; Visit Provider Internal Medicine Medical Oncology
DX: C50.111 Malignant neoplasm of central portion of right female breast (principal); C79.51 Secondary malignant neoplasm of bone; Z92.3 Personal history of irradiation; Z17.0 Estrogen receptor positive status [ER+]; Z90.11 Acquired absence of right breast and nipple; Z79.899 Other long term (current) drug therapy; Z79.811 Long term (current) use of aromatase inhibitors; Z92.21 Personal history of antineoplastic chemotherapy; Z79.69 Long term (current) use of other immunomodulators and immunosuppressants; D64.9 Anemia, unspecified
CPT/HCPCS: 36415; 80053; 82746; 85025; 86300; 96377; 99214; J0897

== ENCOUNTER 2024-08-26 12:30 | Oncology outpatient (recurring) (ONCR) | payer MEDICARE, SELFPAY ==
[2024-07-29 11:27] LABS: Basophils # 0.1 10^3/uL (0.0-0.1); Basophils % 2.2 %; Eosinophils % 1.3 %; Hematocrit 33.8 % (36-47); Lymphocytes # 0.9 10^3/uL (0.8-4.8); Lymphocytes % 37.8 %; Mean Corpuscular HGB Conc 33.1 g/dL (30-55); Mean Corpuscular Hemoglobin 33.5 pg (27-33); Mean Corpuscular Volume 101.2 fl (85-98); Mean Platelet Volume 9.8 fL (7.4-10.4); Monocytes # 0.2 10^3/uL (0.2-0.9); Neutrophils # 1.19 10^3/uL (1.8-7.7); Neutrophils % 51.7 %; Nucleated Red Blood Cells % 0 %; Platelet Count 189 10^3/cmm (157-399); Red Blood Count 3.34 10^6/uL (3.85-5.65); Red Cell Distribution Width 14.3 % (12.1-15.1)
[2024-07-29 11:46] LABS: Alanine Aminotransferase 16 U/L (0-33); Albumin Level 4.4 g/dL (3.5-5.2); Alkaline Phosphatase 52 U/L (35-105); Anion Gap 13.9 (5-19); Aspartate Amino Transferase 24 U/L (0-32); Blood Urea Nitrogen 18 mg/dL (8-23); Carbon Dioxide 26 mmol/L (22-29); Chloride 102 mmol/L (98-107); Globulin 2.9 g/dL (1.3-4.6); Glomerular Filtration Rate 61.9 mL/min (90-130); Glucose 98 mg/dL (65-115); Osmolality Calculated 288 mOsm/kg (285-295); Potassium 3.9 mmol/L (3.5-5.1); Sodium 138 mmol/L (136-145); Total Bilirubin 0.3 mg/dL (0.15-1.2); Total Protein 7.3 g/dL (6.6-8.7)
[2024-07-29 11:55] LABS: Slide Review Slide Review Perform
[2024-07-30 14:06] LABS: CA 15-3 37.3 U/mL (0-25)
[2024-08-26 12:34] LABS: Basophils # 0.1 10^3/uL (0.0-0.1); Basophils % 2.1 %; Eosinophils # 0.1 10^3/uL (0.0-0.8); Eosinophils % 1.3 %; Hematocrit 35.3 % (36-47); Lymphocytes # 1.3 10^3/uL (0.8-4.8); Lymphocytes % 35.1 %; Mean Corpuscular HGB Conc 32.9 g/dL (30-55); Mean Corpuscular Volume 100.3 fl (85-98); Monocytes # 0.2 10^3/uL (0.2-0.9); Monocytes % 6.2 %; Neutrophils # 2.06 10^3/uL (1.8-7.7); Neutrophils % 55.3 %; Nucleated Red Blood Cells % 0 %; Platelet Count 187 10^3/cmm (157-399); Red Blood Count 3.52 10^6/uL (3.85-5.65); Red Cell Distribution Width 14.2 % (12.1-15.1); White Blood Count 3.73 10^3/uL (3.29-11.43)
[2024-08-26 13:07] LABS: Alanine Aminotransferase 16 U/L (0-33); Albumin Level 4.6 g/dL (3.5-5.2); Alkaline Phosphatase 57 U/L (35-105); Anion Gap 15.1 (5-19); Aspartate Amino Transferase 21 U/L (0-32); Blood Urea Nitrogen 25 mg/dL (8-23); CA 15-3 40.3 U/mL (0-25); Calcium 9.2 mg/dL (8.5-10.5); Carbon Dioxide 24 mmol/L (22-29); Chloride 103 mmol/L (98-107); Globulin 2.6 g/dL (1.3-4.6); Glomerular Filtration Rate 54.8 mL/min (90-130); Glucose 100 mg/dL (65-115); Lactate Dehydrogenase 197 U/L (135-214); Osmolality Calculated 290 mOsm/kg (285-295); Potassium 4.1 mmol/L (3.5-5.1); Sodium 138 mmol/L (136-145); Total Bilirubin 0.2 mg/dL (0.15-1.2); Total Protein 7.2 g/dL (6.6-8.7)
[2024-08-26 13:18] LABS: Creatinine Clr Calc Pharmacy 43.4016
== END 2024-08-27 23:59 | disposition home or self-care (01) ==
PROVIDERS: Internal Medicine Hematology & Oncology; Nurse Practitioner Family; PCP Family Medicine; Visit Provider Internal Medicine Medical Oncology
DX: Z53.9 Procedure and treatment not carried out, unspecified reason; C50.111 Malignant neoplasm of central portion of right female breast; C79.51 Secondary malignant neoplasm of bone; M85.80 Other specified disorders of bone density and structure, unspecified site; Z17.0 Estrogen receptor positive status [ER+]; Z92.3 Personal history of irradiation; Z90.11 Acquired absence of right breast and nipple; Z79.899 Other long term (current) drug therapy; Z79.811 Long term (current) use of aromatase inhibitors; Z92.21 Personal history of antineoplastic chemotherapy; Z79.69 Long term (current) use of other immunomodulators and immunosuppressants
CPT/HCPCS: 36415; 80053; 83615; 85025; 86300; 99214

== ENCOUNTER 2024-09-14 12:18 | Oncology outpatient (recurring) (ONCR) | payer MEDICARE, SELFPAY ==
--- NOTE | 2024-09-14 13:15 | CTR_ITS ---
PROCEDURE INFORMATION: Exam: CT Chest With Contrast; Diagnostic Exam date and time: 09/14/2024 1:32 PM Age: 69 years old Clinical indication: Condition or disease; Other: Breast cancer; Prior surgery; Surgery date: 6+ months; Surgery type: RT breast, hyst, port removed; Additional info: Followup breast cancer TECHNIQUE: Imaging protocol: Diagnostic computed tomography of the chest with contrast. Radiation optimization: All CT scans at this facility use at least one of these dose optimization techniques: automated exposure control; mA and/or kV adjustment per patient size (includes targeted exams where dose is matched to clinical indication); or iterative reconstruction. Contrast material: OMNI 350; Contrast volume: 100 ml; Contrast route: INTRAVENOUS (IV); COMPARISON: CT chest wo con [id number] 05/03/2019 4:00 PM RADIATION DOSE METRICS: Total DLP (mGy-cm): 667.39 FINDINGS: Lungs: There is apical scarring on the right similar to that seen on prior exam. No consolidated infiltrates are appreciated. No lung nodules or masses are identified. Pleural spaces: Unremarkable. No pneumothorax. No pleural effusion. Heart: Unremarkable. No cardiomegaly. No pericardial effusion. Lymph nodes: Unremarkable. No enlarged lymph nodes. Vasculature: The thoracic aorta is normal in caliber without aneurysm or dissection. There is calcified plaque involving the aorta without calcified plaque involving the coronary vessels. Bones/joints: There are numerous small sclerotic lesions involving the vertebral bodies and multiple ribs not present on prior exam. Findings suspicious for sclerotic metastasis. Soft tissues: There are postoperative changes status post right mastectomy with reconstruction. PROCEDURE INFORMATION: Exam: CT Abdomen And Pelvis With Contrast Exam date and time: 09/14/2024 1:32 PM Age: 69 years old Clinical indication: Condition or disease; Other: Breast cancer; Prior surgery; Surgery date: 6+ months; Surgery type: RT breast, hyst, port removed; Additional info: Followup breast cancer TECHNIQUE: Imaging protocol: Computed tomography of the abdomen and pelvis with contrast. Radiation optimization: All CT scans at this facility use at least one of these dose optimization techniques: automated exposure control; mA and/or kV adjustment per patient size (includes targeted exams where dose is matched to clinical indication); or iterative reconstruction. Contrast material: OMNI 350; Contrast volume: 100 ml; Contrast route: INTRAVENOUS (IV); COMPARISON: CR XR hip LT 2-3V wo/w pel* [id number] 01/31/2022 1:52 PM RADIATION DOSE METRICS: Total DLP (mGy-cm): 667.39 FINDINGS: Lungs: Lung bases are clear as visualized. Liver: There is diffuse fatty infiltration of the liver. The liver is otherwise normal. Gallbladder and biliary ducts: Normal. No calcified stones. No ductal dilation. Pancreas: Normal. No ductal dilation. Spleen: Normal. No splenomegaly. Adrenal glands: Normal. No mass. Kidneys and ureters: Normal. No hydronephrosis. Stomach and bowel: No dilated loops of large or small bowel is appreciated. There is wall thickening involving the cecum as well as a focal area of wall thickening or more likely incomplete distension involving the proximal transverse colon. The wall thickening involving the cecum does not appear to be related to incomplete distension. No adjacent inflammatory fat stranding is identified. While an inflammatory cause is possible, a neoplastic cause is to be excluded. Appendix: No evidence of appendicitis. Intraperitoneal space: Unremarkable. No free air. No significant fluid collection. Vasculature: Unremarkable. No abdominal aortic aneurysm. Lymph nodes: Unremarkable. No enlarged lymph nodes. Urinary bladder: Unremarkable as visualized. Reproductive: The uterus is not identified. Bones/joints: There are multiple sclerotic lesions involving the lumbar vertebral column, sacrum and pelvis compatible with metastatic disease. There are treated compression deformities at L2, L3, L4 and L5. Soft tissues: Unremarkable. CT/CT chest abdpel w/*[id number] IMPRESSION: 1. Sclerotic bony metastatic disease. IMPRESSION: 1. Sclerotic bony metastatic disease. 2. Wall thickening involving the cecum. If patient has not had a recent colonoscopy, colonoscopy would be recommended for further evaluation. There is wall thickening or more likely incomplete distension involving the proximal transverse colon as well.
[2024-09-14] MEDS: iohexol 350 mg/mL 500 mL Btl (per mL) IV (13:49)
[2024-09-14] MEDS: iohexol 350 mg/mL 500 mL Btl (per mL) PO (13:49)
== END 2024-09-26 23:59 | disposition home or self-care (01) ==
PROVIDERS: PCP Family Medicine; Visit Provider Internal Medicine Medical Oncology
DX: C50.111 Malignant neoplasm of central portion of right female breast (principal); C79.51 Secondary malignant neoplasm of bone; Z17.0 Estrogen receptor positive status [ER+]; Z92.3 Personal history of irradiation; Z90.11 Acquired absence of right breast and nipple; Z79.899 Other long term (current) drug therapy; Z79.811 Long term (current) use of aromatase inhibitors; Z92.21 Personal history of antineoplastic chemotherapy; Z79.69 Long term (current) use of other immunomodulators and immunosuppressants
CPT/HCPCS: 71260; 74177

== ENCOUNTER 2024-10-27 12:15 | Oncology outpatient (recurring) (ONCR) | payer MEDICARE, SELFPAY ==
[2024-09-30 12:36] LABS: Basophils # 0.1 10^3/uL (0.0-0.1); Basophils % 2.2 %; Eosinophils % 0.8 %; Hematocrit 33.9 % (36-47); Lymphocytes # 1.1 10^3/uL (0.8-4.8); Lymphocytes % 29.8 %; Mean Corpuscular HGB Conc 32.2 g/dL (30-55); Mean Corpuscular Hemoglobin 32.6 pg (27-33); Mean Corpuscular Volume 101.5 fl (85-98); Mean Platelet Volume 9.8 fL (7.4-10.4); Monocytes # 0.4 10^3/uL (0.2-0.9); Monocytes % 11.6 %; Neutrophils # 2.01 10^3/uL (1.8-7.7); Neutrophils % 55.3 %; Nucleated Red Blood Cells % 0 %; Platelet Count 204 10^3/cmm (157-399); Red Blood Count 3.34 10^6/uL (3.85-5.65); Red Cell Distribution Width 13.8 % (12.1-15.1); White Blood Count 3.63 10^3/uL (3.29-11.43)
[2024-09-30 13:17] LABS: 25 Hydroxy Vitamin D 27 ng/mL (30-100); Alanine Aminotransferase 16 U/L (0-33); Albumin Level 4.3 g/dL (3.5-5.2); Alkaline Phosphatase 53 U/L (35-105); Anion Gap 14.4 (5-19); Aspartate Amino Transferase 21 U/L (0-32); Blood Urea Nitrogen 15 mg/dL (8-23); CA 15-3 35.5 U/mL (0-25); Calcium 9.6 mg/dL (8.5-10.5); Carbon Dioxide 25 mmol/L (22-29); Chloride 103 mmol/L (98-107); Globulin 2.6 g/dL (1.3-4.6); Glomerular Filtration Rate 49.1 mL/min (90-130); Glucose 98 mg/dL (65-115); Lactate Dehydrogenase 179 U/L (135-214); Osmolality Calculated 287 mOsm/kg (285-295); Potassium 4.4 mmol/L (3.5-5.1); Sodium 138 mmol/L (136-145); Total Bilirubin 0.2 mg/dL (0.15-1.2); Total Protein 6.9 g/dL (6.6-8.7)
[2024-09-30] MEDS: denosumab 120 mg SDV SUBCUT (13:39)
--- NOTE | 2024-10-16 09:00 | PETR_ITS ---
PROCEDURE INFORMATION: Exam: PET/CT Skull Base to Mid-thigh Exam date and time: 10/16/2024 9:44 AM Age: 69 years old Clinical indication: Condition or disease; Primary cancer: Breast cancer; Prior surgery; Surgery date: 6+ months; Surgery type: RT breast, hyst, port removed; Patient HX: Estrogen receptor positive status LABS AND CLINICAL REPORTS: Glucose: 103 mg/dl Treatment strategy for malignancy (PET staging): Restaging (PS) TECHNIQUE: Imaging protocol: Following at least four-hour fasting and following the injection of radiopharmaceutical, low dose CT images were obtained. Then, PET images were obtained. Attenuation corrected images were constructed using the CT scan. Fused images of PET and CT were reviewed. The standardized uptake values (SUV) reported below are maximum values within a region of interest, expressed in gm/ml. Exam includes orbital meatal line to mid-thigh. SUV normalization method: BodyWeight Radiopharmaceutical: 10.63 mCi F-18 FDG (Fluorodeoxyglucose), IV. Time of imaging post radiopharmaceutical administration: 44 minutes Injection site: left ac COMPARISON: CT chest abdpel w/*[id number] 09/14/2024 1:32 PM FINDINGS: Brain: Visualized brain has normal physiologic uptake. Pharynx: No abnormal uptake. Larynx: No abnormal uptake. Lungs, pleura and trachea: Stable right apical fibrotic change with low-level FDG uptake. No new consolidation or mass. No pulmonary nodule. Heart: Normal physiologic uptake. Mediastinal space: No abnormal uptake. Diaphragm: Small hiatal hernia. Liver: No abnormal uptake. Gallbladder and biliary ducts: No abnormal uptake. Pancreas: No abnormal uptake. Spleen: No abnormal uptake. Adrenal glands: No abnormal uptake. Kidneys and ureters: Normal physiologic uptake. Stomach and bowel: No abnormal uptake. Reproductive: The uterus is surgically absent. Vasculature: No abnormal uptake. Mild systemic atherosclerotic calcification without aortic aneurysm. Lymph nodes: No abnormal uptake. No lymphadenopathy in the head, neck, chest, abdomen, pelvis, and extremities. Skeleton: Stable left T3 transverse process lytic lesion shows SUV max 2.9 on axial image 59 of series 202. Focal FDG uptake at posterior left T5 vertebral body shows SUV max 3.0 on axial image 73 with nearby left pedicle sclerosis. Stable 6 mm sclerotic focus at the left T9 vertebral body shows SUV max 2.5. Subtle 5 mm sclerotic focus at the left T11 vertebral body on axial image 119 shows SUV max 3.4. 8 mm mixed sclerotic and lytic lesion at the left T12 vertebral body on axial image 127 shows SUV max 6.2. Focal FDG uptake at the rightward sacrum shows SUV max 3.3 on axial image 183. More inferior rightward sacral 6 mm lytic lesion on axial image 195 shows SUV max 2.7. Right iliac wing 4 mm lytic lesion on axial image 179 shows SUV max 2.6. 5 mm right iliac lytic lesion on axial image 194 shows SUV max 6.0. Medial left supra-acetabular focal FDG uptake shows SUV max 8.1 on axial image [address] abnormality. Subtle focal FDG uptake at the posteromedial right 6th rib shows SUV max 2.6 on axial image 77. Additional sclerotic lesions throughout the bones, most extensive along the lumbar spine and leftward sacrum show no FDG avidity compatible with treated metastases. Augmented L2-5 vertebral bodies with greatest degree of height loss at L3 with moderate posterior wedge compression deformity. Bilateral shoulder periarticular low-level FDG uptake is likely inflammatory. Soft tissues: Right mastectomy with ruptured breast implant. Right axillary surgical clips. Partially visualized prominent asymmetric right upper arm subcutaneous edematous swelling and dermal thickening with low-level FDG uptake. Linear FDG uptake along the right pectoralis, serratus anterior, and obturator externus musculature without underlying CT abnormality likely physiologic muscle activation or strain. Small areas of slight dermal thickening with low-level FDG uptake at the imaged bilateral anterior thighs. METRICS: Mediastinal blood pool: SUV mean 2.6 Liver uptake: SUV mean 3.0 PET/PET skull to thigh SUBS [id number] IMPRESSION: 1. Osseous metastatic disease with multiple metabolically active lesions as well as multiple treated lesions. Metabolically active lesions involving the spine and pelvis detailed above, most avid lesions at the T12 vertebral body and bilateral pelvis. 2. Right mastectomy with ruptured breast implant. 3. Partially visualized right upper arm subcutaneous edematous swelling and dermal thickening may represent lymphedema. 4. Small areas of slight dermal thickening with low-level FDG uptake at the imaged bilateral anterior thighs, correlate with clinical exam.
[2024-10-27 12:52] LABS: Basophils # 0.1 10^3/uL (0.0-0.1); Basophils % 1.9 %; Eosinophils % 0.3 %; Hematocrit 33.5 % (36-47); Lymphocytes # 1.1 10^3/uL (0.8-4.8); Lymphocytes % 28.8 %; Mean Corpuscular HGB Conc 33.1 g/dL (30-55); Mean Corpuscular Hemoglobin 33.6 pg (27-33); Mean Corpuscular Volume 101.5 fl (85-98); Mean Platelet Volume 9.6 fL (7.4-10.4); Monocytes # 0.5 10^3/uL (0.2-0.9); Monocytes % 12.1 %; Neutrophils % 56.6 %; Nucleated Red Blood Cells % 0 %; Platelet Count 198 10^3/cmm (157-399); Red Cell Distribution Width 14.2 % (12.1-15.1); White Blood Count 3.71 10^3/uL (3.29-11.43)
[2024-10-27 13:32] LABS: Alanine Aminotransferase 22 U/L (0-33); Albumin Level 4.2 g/dL (3.5-5.2); Alkaline Phosphatase 54 U/L (35-105); Anion Gap 14.3 (5-19); Aspartate Amino Transferase 26 U/L (0-32); Blood Urea Nitrogen 22 mg/dL (8-23); CA 15-3 34.5 U/mL (0-25); Carbon Dioxide 26 mmol/L (22-29); Chloride 101 mmol/L (98-107); Creatinine Clr Calc Pharmacy 43.4016; Ferritin 48 ng/mL (15-150); Globulin 2.7 g/dL (1.3-4.6); Glomerular Filtration Rate 54.8 mL/min (90-130); Glucose 132 mg/dL (65-115); Iron 61 ug/dL (37-145); Osmolality Calculated 289 mOsm/kg (285-295); Percent Saturation 16.5 % (20-50); Potassium 4.3 mmol/L (3.5-5.1); Sodium 137 mmol/L (136-145); Total Bilirubin 0.2 mg/dL (0.15-1.2); Total Iron Binding Capacity 369 mcg/dl; Total Protein 6.9 g/dL (6.6-8.7); Unsaturated Iron Binding 308 ug/dL (112-347); Vitamin B12 1063 pg/mL (232-1245)
[2024-10-27 13:34] LABS: Folate Level 13.7 ng/mL (4.8-37.3)
== END 2024-10-27 23:59 | disposition home or self-care (01) ==
PROVIDERS: Internal Medicine Hematology & Oncology; PCP Family Medicine; Visit Provider Internal Medicine Medical Oncology
DX: Z53.9 Procedure and treatment not carried out, unspecified reason (principal); C50.111 Malignant neoplasm of central portion of right female breast; M85.80 Other specified disorders of bone density and structure, unspecified site; D64.9 Anemia, unspecified; Z17.0 Estrogen receptor positive status [ER+]; Z92.3 Personal history of irradiation; Z90.11 Acquired absence of right breast and nipple; Z79.899 Other long term (current) drug therapy; Z79.811 Long term (current) use of aromatase inhibitors; Z92.21 Personal history of antineoplastic chemotherapy; Z79.69 Long term (current) use of other immunomodulators and immunosuppressants
CPT/HCPCS: 36415; 78815; 80053; 82306; 82607; 82728; 82746; 83540; 83550; 83615; 85025; 86300; 96377; 99214; A9552; J0897

== ENCOUNTER 2024-11-24 08:21 | Oncology outpatient (recurring) (ONCR) | payer MEDICARE, SELFPAY ==
[2024-11-24 08:51] LABS: Basophils # 0.1 10^3/uL (0.0-0.1); Basophils % 2.5 %; Eosinophils % 0.9 %; Hematocrit 33.7 % (36-47); Lymphocytes # 0.9 10^3/uL (0.8-4.8); Lymphocytes % 28.6 %; Mean Corpuscular HGB Conc 33.2 g/dL (30-55); Mean Corpuscular Hemoglobin 33.4 pg (27-33); Mean Corpuscular Volume 100.6 fl (85-98); Mean Platelet Volume 9.2 fL (7.4-10.4); Monocytes # 0.4 10^3/uL (0.2-0.9); Monocytes % 13.4 %; Neutrophils # 1.75 10^3/uL (1.8-7.7); Neutrophils % 54.3 %; Nucleated Red Blood Cells % 0 %; Platelet Count 200 10^3/cmm (157-399); Red Blood Count 3.35 10^6/uL (3.85-5.65); Red Cell Distribution Width 13.8 % (12.1-15.1); White Blood Count 3.22 10^3/uL (3.29-11.43)
[2024-11-24 09:19] LABS: Alanine Aminotransferase 17 U/L (0-33); Albumin Level 4.3 g/dL (3.5-5.2); Alkaline Phosphatase 61 U/L (35-105); Anion Gap 14.6 (5-19); Aspartate Amino Transferase 21 U/L (0-32); Blood Urea Nitrogen 21 mg/dL (8-23); CA 15-3 34.3 U/mL (0-25); Calcium 9.4 mg/dL (8.5-10.5); Carbon Dioxide 26 mmol/L (22-29); Chloride 102 mmol/L (98-107); Globulin 2.8 g/dL (1.3-4.6); Glomerular Filtration Rate 54.8 mL/min (90-130); Glucose 115 mg/dL (65-115); Osmolality Calculated 290 mOsm/kg (285-295); Potassium 4.6 mmol/L (3.5-5.1); Sodium 138 mmol/L (136-145); Total Bilirubin 0.2 mg/dL (0.15-1.2); Total Protein 7.1 g/dL (6.6-8.7)
[2024-11-24 09:26] LABS: Creatinine Clr Calc Pharmacy 43.7484
== END 2024-11-27 23:59 | disposition home or self-care (01) ==
PROVIDERS: PCP Family Medicine; Visit Provider Internal Medicine Medical Oncology
DX: C50.111 Malignant neoplasm of central portion of right female breast; Z17.0 Estrogen receptor positive status [ER+]; Z79.811 Long term (current) use of aromatase inhibitors; C79.51 Secondary malignant neoplasm of bone; Z79.899 Other long term (current) drug therapy; D75.9 Disease of blood and blood-forming organs, unspecified; R21 Rash and other nonspecific skin eruption; Z53.9 Procedure and treatment not carried out, unspecified reason
CPT/HCPCS: 36415; 80053; 85025; 86300; 99214

== ENCOUNTER 2024-12-22 08:00 | Oncology outpatient (recurring) (ONCR) | payer MEDICARE, SELFPAY ==
--- NOTE | 2024-12-01 15:00 | XR_ITS ---
WS: [id number] DEXA (DUAL ENERGY X-RAY ABSORPTIOMETRY) Bone mineral density was performed using a [employer] machine. HISTORY: AI use; post menopausal COMPARISON: 01/30/2019 Left forearm BMD: 0.589 g/cm2. T score: -3.3 Z score: -1.4 Total hip BMD: Left: 0.796 g/cm2. T score: -1.7 Z score: -0.2 Right: 0.827 g/cm2. T score: -1.4 Z score: 0.1 10 year probability of a major osteoporotic fracture is 14.1%. Compared to the prior study from 01/30/2019. Bilateral hips bone mineral density has decreased by 1.2%. XR/XR DEXA axial skeleton* [id number] IMPRESSION: OSTEOPOROSIS based upon the WHO classification for females. No significant change in bone mineral density within the hips since the prior .
--- NOTE | 2024-12-02 08:30 | MM_ITS ---
WS: [id number] Left breast diagnostic 3D tomosynthesis digital mammogram, 12/02/2024 Clinical Data: restaging Comparison: 10/23/2019, 10/07/2018, 09/25/2017, 09/24/2016, 12/02/2015, 10/27/2014. Findings: The breast parenchymal pattern shows fibroglandular tissue. There is a biopsy clip in the lateral aspect of the left breast. No spiculated masses nor clustered calcifications are seen. There are vascular calcifications in the breast. There are no secondary signs of carcinoma. MM/MM diag LT tomosynthesis [id number] Impression: 1. Negative left breast mammogram. 2. Recommend yearly left breast mammogram. DENSITY: There are scattered areas of fibroglandular density. BIRADS: 1 - Negative. FOLLOW UP: 1 Year Follow-up The CAD furnace checker was used.
[2024-12-22 08:17] LABS: Basophils # 0.1 10^3/uL (0.0-0.1); Basophils % 1.4 %; Eosinophils # 0.2 10^3/uL (0.0-0.8); Eosinophils % 3.2 %; Hematocrit 38.2 % (36-47); Lymphocytes # 1.4 10^3/uL (0.8-4.8); Lymphocytes % 24.4 %; Mean Corpuscular HGB Conc 32.5 g/dL (30-55); Mean Corpuscular Hemoglobin 31.6 pg (27-33); Mean Corpuscular Volume 97.4 fl (85-98); Mean Platelet Volume 10.7 fL (7.4-10.4); Monocytes # 0.4 10^3/uL (0.2-0.9); Monocytes % 7.3 %; Neutrophils # 3.71 10^3/uL (1.8-7.7); Neutrophils % 63.4 %; Nucleated Red Blood Cells % 0 %; Platelet Count 196 10^3/cmm (157-399); Red Blood Count 3.92 10^6/uL (3.85-5.65); Red Cell Distribution Width 12.7 % (12.1-15.1); White Blood Count 5.86 10^3/uL (3.29-11.43)
[2024-12-22 08:44] LABS: Alanine Aminotransferase 24 U/L (0-33); Albumin Level 4.4 g/dL (3.5-5.2); Alkaline Phosphatase 61 U/L (35-105); Anion Gap 14.4 (5-19); Aspartate Amino Transferase 24 U/L (0-32); Blood Urea Nitrogen 17 mg/dL (8-23); CA 15-3 32.7 U/mL (0-25); Calcium 9.7 mg/dL (8.5-10.5); Carbon Dioxide 27 mmol/L (22-29); Chloride 103 mmol/L (98-107); Creatinine Clr Calc Pharmacy 43.4016; Globulin 2.7 g/dL (1.3-4.6); Glomerular Filtration Rate 54.8 mL/min (90-130); Glucose 119 mg/dL (65-115); Osmolality Calculated 293 mOsm/kg (285-295); Potassium 4.4 mmol/L (3.5-5.1); Sodium 140 mmol/L (136-145); Total Bilirubin 0.3 mg/dL (0.15-1.2); Total Protein 7.1 g/dL (6.6-8.7)
== END 2024-12-25 23:59 | disposition home or self-care (01) ==
PROVIDERS: Internal Medicine Medical Oncology; Visit Provider Nurse Practitioner Family
DX: C50.111 Malignant neoplasm of central portion of right female breast (principal); Z17.0 Estrogen receptor positive status [ER+]; C79.51 Secondary malignant neoplasm of bone; Z79.811 Long term (current) use of aromatase inhibitors
CPT/HCPCS: 36415; 77061; 77080; 80053; 85025; 86300; 99214; G0279

== ENCOUNTER 2025-02-19 14:33 | Oncology outpatient (recurring) (ONCR) | payer MEDICARE, SELFPAY ==
[2025-02-15 09:21] LABS: Basophils # 0.1 10^3/uL (0.0-0.1); Basophils % 2.1 %; Eosinophils # 0.1 10^3/uL (0.0-0.8); Eosinophils % 2.5 %; Hematocrit 32.5 % (36-47); Lymphocytes % 35.9 %; Mean Corpuscular HGB Conc 33.5 g/dL (30-55); Mean Corpuscular Hemoglobin 32.6 pg (27-33); Mean Corpuscular Volume 97.3 fl (85-98); Mean Platelet Volume 10.2 fL (7.4-10.4); Monocytes # 0.2 10^3/uL (0.2-0.9); Monocytes % 8.1 %; Neutrophils # 1.46 10^3/uL (1.8-7.7); Neutrophils % 51.4 %; Nucleated Red Blood Cells % 0 %; Platelet Count 144 10^3/cmm (157-399); Red Blood Count 3.34 10^6/uL (3.85-5.65); Red Cell Distribution Width 14.6 % (12.1-15.1); White Blood Count 2.84 10^3/uL (3.29-11.43)
[2025-02-15 09:40] LABS: Alanine Aminotransferase 13 U/L (0-33); Albumin Level 4.4 g/dL (3.5-5.2); Alkaline Phosphatase 56 U/L (35-105); Anion Gap 14.6 (5-19); Aspartate Amino Transferase 17 U/L (0-32); Blood Urea Nitrogen 20 mg/dL (8-23); Calcium 9.5 mg/dL (8.5-10.5); Carbon Dioxide 24 mmol/L (22-29); Chloride 106 mmol/L (98-107); Creatinine Clr Calc Pharmacy 36.0432; Globulin 2.9 g/dL (1.3-4.6); Glomerular Filtration Rate 44.4 mL/min (90-130); Glucose 80 mg/dL (65-115); Osmolality Calculated 292 mOsm/kg (285-295); Potassium 4.6 mmol/L (3.5-5.1); Sodium 140 mmol/L (136-145); Total Bilirubin 0.2 mg/dL (0.15-1.2); Total Protein 7.3 g/dL (6.6-8.7)
[2025-02-15 10:03] LABS: Slide Review Slide Review Perform
[2025-02-15 10:17] LABS: CA 15-3 31.1 U/mL (0-25)
--- NOTE | 2025-02-19 15:00 | PETR_ITS ---
PROCEDURE INFORMATION: Exam: PET/CT Skull Base to Mid-thigh Exam date and time: 02/19/2025 4:13 PM Age: 69 years old Clinical indication: Condition or disease; Primary cancer: Breast cancer right; Prior surgery; Surgery date: 6+ months; Surgery type: RT breast, hyst, port removed; Additional info: Restaging LABS AND CLINICAL REPORTS: Glucose: 131 mg/dl Treatment strategy for malignancy (PET staging): Restaging (PS) TECHNIQUE: Imaging protocol: Following at least four-hour fasting and following the injection of radiopharmaceutical, low dose CT images were obtained. Then, PET images were obtained. Attenuation corrected images were constructed using the CT scan. Fused images of PET and CT were reviewed. The standardized uptake values (SUV) reported below are maximum values within a region of interest, expressed in gm/ml. Exam includes orbital meatal line to mid-thigh. SUV normalization method: BodyWeight Radiopharmaceutical: 11.4 mCi F-18 FDG (Fluorodeoxyglucose), IV. Time of imaging post radiopharmaceutical administration: 45 minutes Injection site: left ac COMPARISON: PT PET skull to thigh SUBS [id number] 10/16/2024 9:44 AM FINDINGS: Brain: Visualized brain has normal physiologic uptake. Pharynx: No abnormal uptake. Larynx: No abnormal uptake. Lungs, pleura and trachea: Stable right apical fibrotic change with low-level FDG uptake. No new consolidation or mass. No pulmonary nodule. Heart: Normal physiologic uptake. Mediastinal space: No abnormal uptake. Diaphragm: Small hiatal hernia. Esophagus: FDG uptake along the upper esophagus. Liver: No abnormal uptake. Gallbladder and biliary ducts: No abnormal uptake. Pancreas: No abnormal uptake. Spleen: No abnormal uptake. Adrenal glands: No abnormal uptake. Kidneys and ureters: Normal physiologic uptake. Stomach and bowel: No abnormal uptake. Reproductive: The uterus is surgically absent. Vasculature: No abnormal uptake. Mild systemic atherosclerotic calcification without aortic aneurysm. Lymph nodes: No abnormal uptake. No lymphadenopathy in the head, neck, chest, abdomen, pelvis, and extremities. Skeleton: Stable left T3 transverse process lytic lesion shows SUV max 3.1 on axial image 52. Stable focal FDG uptake at posterior left T5 vertebral body shows SUV max 3.0 on axial image 66. 8 mm mixed sclerotic and lytic lesion at the left T12 vertebral body on axial image 121 shows SUV max 3.5, previously 6.2. Resolved right sacral uptake. 5 mm right iliac lytic lesion on axial image 187 shows SUV max 9.2, previously 6.0. Medial left supra-acetabular focal FDG uptake shows SUV max 9.0 on axial image 190, previously 8.1. Resolved posterior right 6th rib uptake. Redemonstrated multiple non FDG avid sclerotic lesions throughout the bones, most extensive along the lumbar spine and leftward sacrum compatible with treated metastases. Augmented L2-5 vertebral bodies with greatest degree of height loss at L3 with moderate posterior wedge compression deformity. Degenerative changes along the spine. Soft tissues: Right mastectomy with completely ruptured breast implant. Right axillary surgical clips. Prominent asymmetric right upper arm subcutaneous edematous swelling and dermal thickening with low-level FDG uptake. Bilateral hand muscle FDG uptake without underlying CT abnormality is likely benign activation or strain. METRICS: Mediastinal blood pool: SUV mean 2.7 Liver uptake: SUV mean 2.9 PET/PET skull to thigh SUBS [id number] IMPRESSION: 1. Osseous metastatic disease with findings of mixed treatment response. Significant increased FDG uptake at subcentimeter right iliac lesion and mildly increased at medial left supra-acetabular lesion. Remaining lesions show stable, decreased, or resolved FDG uptake. No new lesion. 2. Right mastectomy with ruptured breast implant. 3. Right upper arm subcutaneous edematous swelling and dermal thickening compatible with lymphedema. 4. FDG uptake along the upper esophagus may represent esophagitis. 5. Additional chronic and incidental findings as above.
== END 2025-02-24 23:59 | disposition home or self-care (01) ==
PROVIDERS: Internal Medicine Medical Oncology; Visit Provider Nurse Practitioner Family
DX: C50.111 Malignant neoplasm of central portion of right female breast (principal); Z17.0 Estrogen receptor positive status [ER+]; C79.51 Secondary malignant neoplasm of bone; Z90.11 Acquired absence of right breast and nipple; T85.49XA Other mechanical complication of breast prosthesis and implant, initial encounter; I89.0 Lymphedema, not elsewhere classified
CPT/HCPCS: 36415; 78815; 80053; 85025; 86300; 99214; A9552

== ENCOUNTER 2025-03-01 15:17 | Oncology outpatient (recurring) (ONCR) | payer MEDICARE, SELFPAY | END 2025-03-27 23:59 | disposition home or self-care (01) | PROVIDERS: Visit Provider Nurse Practitioner Family | DX: C50.111 Malignant neoplasm of central portion of right female breast (principal); Z17.0 Estrogen receptor positive status [ER+]; C79.51 Secondary malignant neoplasm of bone; R03.0 Elevated blood-pressure reading, without diagnosis of hypertension; Z79.899 Other long term (current) drug therapy; D75.9 Disease of blood and blood-forming organs, unspecified | CPT/HCPCS: 99214 ==

== ENCOUNTER 2025-03-29 12:59 | Oncology outpatient (recurring) (ONCR) | payer MEDICARE, SELFPAY ==
[2025-03-29 13:19] LABS: Basophils # 0.1 10^3/uL (0.0-0.1); Basophils % 2.8 %; Eosinophils # 0.1 10^3/uL (0.0-0.8); Eosinophils % 1.3 %; Hematocrit 32.1 % (36-47); Lymphocytes # 1.3 10^3/uL (0.8-4.8); Lymphocytes % 32.6 %; Mean Corpuscular HGB Conc 32.1 g/dL (30-55); Mean Corpuscular Hemoglobin 32.7 pg (27-33); Mean Corpuscular Volume 101.9 fl (85-98); Mean Platelet Volume 9.5 fL (7.4-10.4); Monocytes # 0.2 10^3/uL (0.2-0.9); Monocytes % 5.6 %; Neutrophils # 2.25 10^3/uL (1.8-7.7); Neutrophils % 56.7 %; Nucleated Red Blood Cells % 0 %; Platelet Count 277 10^3/cmm (157-399); Red Blood Count 3.15 10^6/uL (3.85-5.65); Red Cell Distribution Width 17.2 % (12.1-15.1); White Blood Count 3.96 10^3/uL (3.29-11.43)
[2025-03-29 13:37] LABS: Alanine Aminotransferase 12 U/L (0-33); Albumin Level 4.1 g/dL (3.5-5.2); Alkaline Phosphatase 53 U/L (35-105); Anion Gap 16.7 (5-19); Aspartate Amino Transferase 15 U/L (0-32); Blood Urea Nitrogen 22 mg/dL (8-23); Calcium 9.1 mg/dL (8.5-10.5); Carbon Dioxide 24 mmol/L (22-29); Chloride 104 mmol/L (98-107); Globulin 2.7 g/dL (1.3-4.6); Glomerular Filtration Rate 49.1 mL/min (90-130); Glucose 134 mg/dL (65-115); Osmolality Calculated 295 mOsm/kg (285-295); Potassium 4.7 mmol/L (3.5-5.1); Sodium 140 mmol/L (136-145); Total Bilirubin 0.2 mg/dL (0.15-1.2); Total Protein 6.8 g/dL (6.6-8.7)
[2025-03-29 13:40] LABS: Slide Review Slide Review Perform
[2025-03-29 14:02] LABS: CA 15-3 36.3 U/mL (0-25)
[2025-03-29] MEDS: denosumab 120 mg SDV SUBCUT (15:20)
== END 2025-04-26 23:59 | disposition home or self-care (01) ==
PROVIDERS: Internal Medicine Medical Oncology; Visit Provider Nurse Practitioner Family
DX: C50.111 Malignant neoplasm of central portion of right female breast (principal); Z17.0 Estrogen receptor positive status [ER+]; C79.51 Secondary malignant neoplasm of bone; R03.0 Elevated blood-pressure reading, without diagnosis of hypertension; D75.9 Disease of blood and blood-forming organs, unspecified; Z79.811 Long term (current) use of aromatase inhibitors; Z79.899 Other long term (current) drug therapy; L23.7 Allergic contact dermatitis due to plants, except food
CPT/HCPCS: 36415; 80053; 85025; 86300; 96372; 99214; J0897

== ENCOUNTER 2025-05-27 14:30 | Oncology outpatient (recurring) (ONCR) | payer MEDICARE, SELFPAY ==
[2025-05-11 13:10] LABS: Hematocrit 28.9 % (36-47); Hemoglobin 9.60 g/dL (11.27-16.99); Mean Corpuscular HGB Conc 33.2 g/dL (30-55); Mean Corpuscular Hemoglobin 34.7 pg (27-33); Mean Corpuscular Volume 104.3 fl (85-98); Nucleated Red Blood Cells % 0 %; Platelet Count 140 10^3/cmm (157-399); Red Blood Count 2.77 10^6/uL (3.85-5.65); White Blood Count 3.00 10^3/uL (3.29-11.43)
[2025-05-11 13:31] LABS: Slide Review Slide Review Perform
[2025-05-11 13:42] LABS: Alanine Aminotransferase 13 U/L (0-33); Albumin Level 4.3 g/dL (3.5-5.2); Alkaline Phosphatase 58 U/L (35-105); Anion Gap 17.1 (5-19); Aspartate Amino Transferase 18 U/L (0-32); Blood Urea Nitrogen 20 mg/dL (8-23); CA 15-3 36.6 U/mL (0-25); Calcium 9.3 mg/dL (8.5-10.5); Carbon Dioxide 22 mmol/L (22-29); Chloride 103 mmol/L (98-107); Globulin 2.9 g/dL (1.3-4.6); Glucose 115 mg/dL (65-115); Osmolality Calculated 290 mOsm/kg (285-295); Potassium 4.1 mmol/L (3.5-5.1); Sodium 138 mmol/L (136-145); Total Protein 7.2 g/dL (6.6-8.7)
[2025-05-27 14:25] LABS: Hematocrit 31.2 % (36-47); Hemoglobin 10.50 g/dL (11.27-16.99); Mean Corpuscular HGB Conc 33.7 g/dL (30-55); Mean Corpuscular Hemoglobin 36.3 pg (27-33); Mean Corpuscular Volume 108.0 fl (85-98); Nucleated Red Blood Cells % 0 %; Platelet Count 197 10^3/cmm (157-399); Red Blood Count 2.89 10^6/uL (3.85-5.65); White Blood Count 3.89 10^3/uL (3.29-11.43)
[2025-05-27 14:40] LABS: Alanine Aminotransferase 9 U/L (0-33); Albumin Level 3.9 g/dL (3.5-5.2); Alkaline Phosphatase 62 U/L (35-105); Anion Gap 13.3 (5-19); Aspartate Amino Transferase 16 U/L (0-32); Blood Urea Nitrogen 15 mg/dL (8-23); Calcium 8.4 mg/dL (8.5-10.5); Carbon Dioxide 26 mmol/L (22-29); Chloride 104 mmol/L (98-107); Creatinine Clr Calc Pharmacy 39.7289; Globulin 2.5 g/dL (1.3-4.6); Glucose 102 mg/dL (65-115); Osmolality Calculated 289 mOsm/kg (285-295); Potassium 4.3 mmol/L (3.5-5.1); Sodium 139 mmol/L (136-145); Total Protein 6.4 g/dL (6.6-8.7)
[2025-05-27 14:51] LABS: Slide Review Slide Review Perform
== END 2025-05-27 23:59 | disposition home or self-care (01) ==
PROVIDERS: Nurse Practitioner; Visit Provider Nurse Practitioner Family
DX: Z53.9 Procedure and treatment not carried out, unspecified reason; C50.111 Malignant neoplasm of central portion of right female breast; Z17.0 Estrogen receptor positive status [ER+]; C79.51 Secondary malignant neoplasm of bone; R03.0 Elevated blood-pressure reading, without diagnosis of hypertension; R21 Rash and other nonspecific skin eruption; Z79.52 Long term (current) use of systemic steroids
CPT/HCPCS: 36415; 80053; 85025; 86300; 99214; 99215

== ENCOUNTER 2025-06-14 12:43 | Oncology outpatient (recurring) (ONCR) | payer MEDICARE, SELFPAY ==
[2025-06-08 11:51] LABS: Hematocrit 32.8 % (36-47); Hemoglobin 10.80 g/dL (11.27-16.99); Mean Corpuscular HGB Conc 32.9 g/dL (30-55); Mean Corpuscular Hemoglobin 34.6 pg (27-33); Mean Corpuscular Volume 105.1 fl (85-98); Nucleated Red Blood Cells % 0 %; Platelet Count 211 10^3/cmm (157-399); Red Blood Count 3.12 10^6/uL (3.85-5.65); White Blood Count 3.64 10^3/uL (3.29-11.43)
[2025-06-08 12:19] LABS: Alanine Aminotransferase 18 U/L (0-33); Albumin Level 4.0 g/dL (3.5-5.2); Alkaline Phosphatase 70 U/L (35-105); Anion Gap 14.3 (5-19); Aspartate Amino Transferase 17 U/L (0-32); Blood Urea Nitrogen 17 mg/dL (8-23); CA 15-3 36.0 U/mL (0-25); Calcium 8.8 mg/dL (8.5-10.5); Carbon Dioxide 26 mmol/L (22-29); Chloride 103 mmol/L (98-107); Creatinine Clr Calc Pharmacy 43.0774; Globulin 2.6 g/dL (1.3-4.6); Glucose 146 mg/dL (65-115); Osmolality Calculated 292 mOsm/kg (285-295); Potassium 4.3 mmol/L (3.5-5.1); Sodium 139 mmol/L (136-145); Total Protein 6.6 g/dL (6.6-8.7)
--- NOTE | 2025-06-09 08:29 | ECG_ITS ---
[facility]: 2025-[facility]08 Pat Name: Karolina Sears Department: Room: Gender: Female International Logistics Manager: : 1955 Requested By: Loraine Villalobos Order Number: [id number] [place] MD: Mellissa Paredes M.D. Measurements Intervals [place] Rate: 74 P: 58 PA: 204 QRS: -27 QRSD: 121 T: 64 QT: 406 QTc: 451 Interpretive Statements SINUS RHYTHM LEFT BUNDLE BRANCH BLOCK [120+ ms QRS DURATION, 80+ ms Q/S IN V1/V2, 85+ ms R IN I/aVL/V5/V6] Compared to ECG 11/14/2018 09:14:10 Left bundle-branch block now present Sinus tachycardia no longer present ST (T wave) deviation no longer present Electronically Signed On 06-19-2025 13:12:07 CDT by Mellissa Paredes M.D. [id number]
== END 2025-06-27 23:59 | disposition home or self-care (01) ==
PROVIDERS: Visit Provider Nurse Practitioner Family
DX: C50.111 Malignant neoplasm of central portion of right female breast (principal); Z17.0 Estrogen receptor positive status [ER+]; R03.0 Elevated blood-pressure reading, without diagnosis of hypertension; C79.51 Secondary malignant neoplasm of bone; D75.9 Disease of blood and blood-forming organs, unspecified; Z92.3 Personal history of irradiation; Z79.899 Other long term (current) drug therapy; Z90.11 Acquired absence of right breast and nipple
CPT/HCPCS: 36415; 80053; 85025; 86300; 93005; 99214

== ENCOUNTER 2025-07-26 10:00 | Oncology outpatient (recurring) (ONCR) | payer MEDICARE, SELFPAY ==
[2025-07-06 14:08] LABS: Hematocrit 36.1 % (36-47); Hemoglobin 11.70 g/dL (11.27-16.99); Mean Corpuscular HGB Conc 32.4 g/dL (30-55); Mean Corpuscular Hemoglobin 32.2 pg (27-33); Mean Corpuscular Volume 99.4 fl (85-98); Nucleated Red Blood Cells % 0 %; Platelet Count 244 10^3/cmm (157-399); Red Blood Count 3.63 10^6/uL (3.85-5.65); White Blood Count 7.74 10^3/uL (3.29-11.43)
[2025-07-06 14:31] LABS: Alanine Aminotransferase 18 U/L (0-33); Albumin Level 4.3 g/dL (3.5-5.2); Alkaline Phosphatase 79 U/L (35-105); Anion Gap 14.6 (5-19); Aspartate Amino Transferase 18 U/L (0-32); Blood Urea Nitrogen 21 mg/dL (8-23); Calcium 9.3 mg/dL (8.5-10.5); Carbon Dioxide 26 mmol/L (22-29); Chloride 103 mmol/L (98-107); Globulin 2.8 g/dL (1.3-4.6); Glucose 130 mg/dL (65-115); Osmolality Calculated 293 mOsm/kg (285-295); Potassium 4.6 mmol/L (3.5-5.1); Sodium 139 mmol/L (136-145); Total Protein 7.1 g/dL (6.6-8.7)
[2025-07-06 17:25] LABS: CA 15-3 34.8 U/mL (0-25)
[2025-07-20 13:26] LABS: Hematocrit 39.3 % (36-47); Hemoglobin 12.20 g/dL (11.27-16.99); Mean Corpuscular HGB Conc 31.0 g/dL (30-55); Mean Corpuscular Hemoglobin 33.1 pg (27-33); Mean Corpuscular Volume 106.5 fl (85-98); Nucleated Red Blood Cells % 0 %; Platelet Count 213 10^3/cmm (157-399); Red Blood Count 3.69 10^6/uL (3.85-5.65); White Blood Count 4.70 10^3/uL (3.29-11.43)
[2025-07-20 13:44] LABS: Albumin Level 4.4 g/dL (3.5-5.2); Alkaline Phosphatase 69 U/L (35-105); Anion Gap 15.1 (5-19); Aspartate Amino Transferase 19 U/L (0-32); Blood Urea Nitrogen 17 mg/dL (8-23); Calcium 9.2 mg/dL (8.5-10.5); Carbon Dioxide 24 mmol/L (22-29); Chloride 103 mmol/L (98-107); Creatinine Clr Calc Pharmacy 42.8953; Globulin 2.7 g/dL (1.3-4.6); Glucose 127 mg/dL (65-115); Osmolality Calculated 289 mOsm/kg (285-295); Potassium 4.1 mmol/L (3.5-5.1); Sodium 138 mmol/L (136-145); Total Protein 7.1 g/dL (6.6-8.7)
[2025-07-20 13:55] LABS: Alanine Aminotransferase 15 U/L (0-33)
[2025-07-26 09:38] VITALS: BP 146/67; PULSE 113; RESP 18; TEMP 35.8; O2SAT 98
[2025-07-26] MEDS: denosumab 120 mg SDV (Infusion Clinic Only) SUBCUT (09:41)
== END 2025-07-27 23:59 | disposition home or self-care (01) ==
PROVIDERS: Nurse Practitioner; Visit Provider Nurse Practitioner Family
DX: Z53.9 Procedure and treatment not carried out, unspecified reason; C79.51 Secondary malignant neoplasm of bone; Z79.899 Other long term (current) drug therapy
CPT/HCPCS: 36415; 80053; 82306; 85025; 86300; 96372; 99214; 99215; J0897

== ENCOUNTER 2025-08-17 10:15 | Oncology outpatient (recurring) (ONCR) | payer MEDICARE, SELFPAY ==
[2025-08-03 08:40] LABS: Hematocrit 33.8 % (36-47); Hemoglobin 11.00 g/dL (11.27-16.99); Mean Corpuscular HGB Conc 32.5 g/dL (30-55); Mean Corpuscular Hemoglobin 31.5 pg (27-33); Mean Corpuscular Volume 96.8 fl (85-98); Nucleated Red Blood Cells % 0 %; Platelet Count 211 10^3/cmm (157-399); Red Blood Count 3.49 10^6/uL (3.85-5.65); White Blood Count 4.07 10^3/uL (3.29-11.43)
[2025-08-03 09:07] LABS: Alanine Aminotransferase 17 U/L (0-33); Albumin Level 4.2 g/dL (3.5-5.2); Alkaline Phosphatase 51 U/L (35-105); Anion Gap 16.3 (5-19); Aspartate Amino Transferase 23 U/L (0-32); Blood Urea Nitrogen 19 mg/dL (8-23); CA 15-3 31.3 U/mL (0-25); Calcium 8.8 mg/dL (8.5-10.5); Carbon Dioxide 22 mmol/L (22-29); Chloride 107 mmol/L (98-107); Globulin 2.7 g/dL (1.3-4.6); Glucose 89 mg/dL (65-115); Osmolality Calculated 294 mOsm/kg (285-295); Potassium 4.3 mmol/L (3.5-5.1); Sodium 141 mmol/L (136-145); Total Protein 6.9 g/dL (6.6-8.7)
[2025-08-17 09:58] LABS: Hematocrit 35.4 % (36-47); Hemoglobin 11.50 g/dL (11.27-16.99); Mean Corpuscular HGB Conc 32.5 g/dL (30-55); Mean Corpuscular Hemoglobin 30.7 pg (27-33); Mean Corpuscular Volume 94.4 fl (85-98); Nucleated Red Blood Cells % 0 %; Platelet Count 236 10^3/cmm (157-399); Red Blood Count 3.75 10^6/uL (3.85-5.65); White Blood Count 6.95 10^3/uL (3.29-11.43)
[2025-08-17 10:27] LABS: Alanine Aminotransferase 15 U/L (0-33); Albumin Level 4.4 g/dL (3.5-5.2); Alkaline Phosphatase 55 U/L (35-105); Anion Gap 15.6 (5-19); Aspartate Amino Transferase 22 U/L (0-32); Blood Urea Nitrogen 22 mg/dL (8-23); CA 15-3 33.0 U/mL (0-25); Calcium 9.5 mg/dL (8.5-10.5); Carbon Dioxide 25 mmol/L (22-29); Chloride 105 mmol/L (98-107); Ferritin 56 ng/mL (15-150); Globulin 2.7 g/dL (1.3-4.6); Glucose 100 mg/dL (65-115); Iron 53 ug/dL (37-145); Osmolality Calculated 295 mOsm/kg (285-295); Potassium 4.6 mmol/L (3.5-5.1); Sodium 141 mmol/L (136-145); Total Iron Binding Capacity 342 mcg/dl; Total Protein 7.1 g/dL (6.6-8.7); Unsaturated Iron Binding 289 ug/dL (112-347)
== END 2025-08-27 23:59 | disposition home or self-care (01) ==
PROVIDERS: Internal Medicine Medical Oncology; Visit Provider Nurse Practitioner Family
DX: C50.111 Malignant neoplasm of central portion of right female breast; Z17.0 Estrogen receptor positive status [ER+]; C79.51 Secondary malignant neoplasm of bone; L65.9 Nonscarring hair loss, unspecified; R03.0 Elevated blood-pressure reading, without diagnosis of hypertension; Z92.3 Personal history of irradiation; Z79.899 Other long term (current) drug therapy; Z53.9 Procedure and treatment not carried out, unspecified reason
CPT/HCPCS: 36415; 80053; 82728; 82746; 83540; 83550; 85025; 86300; 99214

== ENCOUNTER 2025-09-14 12:30 | Oncology outpatient (recurring) (ONCR) | payer MEDICARE, SELFPAY ==
[2025-08-31 10:06] LABS: Hematocrit 35.6 % (36-47); Hemoglobin 11.40 g/dL (11.27-16.99); Mean Corpuscular HGB Conc 32.0 g/dL (30-55); Mean Corpuscular Hemoglobin 30.1 pg (27-33); Mean Corpuscular Volume 93.9 fl (85-98); Nucleated Red Blood Cells % 0 %; Platelet Count 264 10^3/cmm (157-399); Red Blood Count 3.79 10^6/uL (3.85-5.65); White Blood Count 6.84 10^3/uL (3.29-11.43)
[2025-08-31 10:20] LABS: Alanine Aminotransferase 15 U/L (0-33); Albumin Level 4.5 g/dL (3.5-5.2); Alkaline Phosphatase 55 U/L (35-105); Anion Gap 14.8 (5-19); Aspartate Amino Transferase 20 U/L (0-32); Blood Urea Nitrogen 22 mg/dL (8-23); Calcium 8.7 mg/dL (8.5-10.5); Carbon Dioxide 22 mmol/L (22-29); Chloride 106 mmol/L (98-107); Globulin 2.7 g/dL (1.3-4.6); Glucose 102 mg/dL (65-115); Osmolality Calculated 290 mOsm/kg (285-295); Potassium 4.8 mmol/L (3.5-5.1); Sodium 138 mmol/L (136-145); Total Protein 7.2 g/dL (6.6-8.7)
[2025-09-14 12:16] LABS: Hematocrit 32.8 % (36-47); Hemoglobin 10.50 g/dL (11.27-16.99); Mean Corpuscular HGB Conc 32.0 g/dL (30-55); Mean Corpuscular Hemoglobin 30.0 pg (27-33); Mean Corpuscular Volume 93.7 fl (85-98); Nucleated Red Blood Cells % 0 %; Platelet Count 200 10^3/cmm (157-399); Red Blood Count 3.50 10^6/uL (3.85-5.65); White Blood Count 4.73 10^3/uL (3.29-11.43)
[2025-09-14 12:52] LABS: Alanine Aminotransferase 16 U/L (0-33); Albumin Level 4.3 g/dL (3.5-5.2); Alkaline Phosphatase 47 U/L (35-105); Anion Gap 11.7 (5-19); Aspartate Amino Transferase 21 U/L (0-32); Blood Urea Nitrogen 24 mg/dL (8-23); CA 15-3 29.1 U/mL (0-25); Calcium 9.3 mg/dL (8.5-10.5); Carbon Dioxide 28 mmol/L (22-29); Chloride 103 mmol/L (98-107); Globulin 2.7 g/dL (1.3-4.6); Glucose 90 mg/dL (65-115); Osmolality Calculated 290 mOsm/kg (285-295); Potassium 4.7 mmol/L (3.5-5.1); Sodium 138 mmol/L (136-145); Total Protein 7.0 g/dL (6.6-8.7)
== END 2025-09-26 23:59 | disposition home or self-care (01) ==
PROVIDERS: Visit Provider Nurse Practitioner Family
DX: C50.111 Malignant neoplasm of central portion of right female breast; Z17.0 Estrogen receptor positive status [ER+]; C79.51 Secondary malignant neoplasm of bone; R03.0 Elevated blood-pressure reading, without diagnosis of hypertension; R21 Rash and other nonspecific skin eruption; M54.6 Pain in thoracic spine; Z79.52 Long term (current) use of systemic steroids; Z92.3 Personal history of irradiation; Z79.899 Other long term (current) drug therapy; Z53.9 Procedure and treatment not carried out, unspecified reason
CPT/HCPCS: 36415; 80053; 85025; 86300; 99214

== ENCOUNTER 2025-10-19 09:00 | Oncology outpatient (recurring) (ONCR) | payer MEDICARE, SELFPAY ==
[2025-10-01 11:45] LABS: Hematocrit 38.9 % (36-47); Hemoglobin 12.40 g/dL (11.27-16.99); Mean Corpuscular HGB Conc 31.9 g/dL (30-55); Mean Corpuscular Hemoglobin 30.2 pg (27-33); Mean Corpuscular Volume 94.9 fl (85-98); Nucleated Red Blood Cells % 0 %; Platelet Count 229 10^3/cmm (157-399); Red Blood Count 4.10 10^6/uL (3.85-5.65); White Blood Count 10.53 10^3/uL (3.29-11.43)
[2025-10-01 11:59] LABS: Alanine Aminotransferase 29 U/L (0-33); Albumin Level 4.4 g/dL (3.5-5.2); Alkaline Phosphatase 58 U/L (35-105); Anion Gap 15.0 (5-19); Aspartate Amino Transferase 23 U/L (0-32); Blood Urea Nitrogen 34 mg/dL (8-23); Calcium 9.0 mg/dL (8.5-10.5); Carbon Dioxide 27 mmol/L (22-29); Chloride 97 mmol/L (98-107); Globulin 2.7 g/dL (1.3-4.6); Glucose 141 mg/dL (65-115); Osmolality Calculated 288 mOsm/kg (285-295); Potassium 5.0 mmol/L (3.5-5.1); Sodium 134 mmol/L (136-145); Total Protein 7.1 g/dL (6.6-8.7)
--- NOTE | 2025-10-01 12:00 | PETR_ITS ---
PROCEDURE INFORMATION: Exam: PET/CT Skull Base to Mid-thigh Exam date and time: 10/01/2025 12:38 PM Age: 70 years old Clinical indication: Condition or disease; Primary cancer: Breast cancer; Prior surgery; Surgery date: 6+ months; Surgery type: RT breast, hyst, port removed; Additional info: New thoracic back pain LABS AND CLINICAL REPORTS: Glucose: 138 mg/dl Treatment strategy for malignancy (PET staging): Restaging (PS) TECHNIQUE: Imaging protocol: Following at least four-hour fasting and following the injection of radiopharmaceutical, low dose CT images were obtained. Then, PET images were obtained. Attenuation corrected images were constructed using the CT scan. Fused images of PET and CT were reviewed. The standardized uptake values (SUV) reported below are maximum values within a region of interest, expressed in gm/ml. Exam includes orbital meatal line to mid-thigh. SUV normalization method: BodyWeight Radiopharmaceutical: 10.2 mCi F-18 FDG (Fluorodeoxyglucose), IV. Time of imaging post radiopharmaceutical administration: 45 minutes Injection site: left forearm COMPARISON: PT PET skull to thigh SUBS [id number] 02/19/2025 4:13 PM FINDINGS: Brain: On the nondedicated limited brain images there is no abnormal distribution of the radiotracer in the cook and white matter. Pharynx: Normal distribution of the radiotracer in nasopharyngeal, and oropharyngeal structures. Larynx: Normal distribution of the radiotracer in laryngeal structures. Lungs, pleura and trachea: No abnormal uptake. Stable area of scarring in the paramediastinal right upper lobe. No suspicious lung nodules or masses. No pleural effusion. Heart: Normal physiologic uptake. There is no cardiomegaly. There is no pericardial effusion. Mediastinal space: No abnormal uptake. Diaphragm: Short segment of mildly increased uptake of 5.5 SUV in the distal esophagus adjacent to a small hiatal hernia with no abnormal wall thickening is probably benign. Liver: Normal size without abnormal radiotracer uptake. Gallbladder and biliary ducts: No abnormal uptake. Pancreas: Normal distribution of radiotracer. Spleen: Normal size without abnormal radiotracer uptake. Adrenal glands: No abnormal uptake. No nodules. Kidneys and ureters: Normal physiologic uptake. No hydronephrosis. Stomach and bowel: No abnormal uptake. Intraperitoneal and retroperitoneal spaces: No abnormal uptake. No ascites. Urinary bladder: Normal physiologic uptake. Reproductive: No abnormal uptake. The uterus is absent post surgically. Vasculature: No abnormal uptake. No aortic aneurysm. Lymph nodes: No abnormal uptake. No lymphadenopathy in the head, neck, chest, abdomen, pelvis, and extremities. Skeleton: Stable in size about 0.6 cm bone metastasis in the right iliac bone adjacent to the acetabular roof decreased from 9.2 SUV to 7.3 SUV. Stable in size about 1 cm bone metastasis in the left acetabular roof decreased from 9 SUV to 7 SUV. Stable linear uptake of 3.6 SUV (previously 3.5 SUV) noted in the left aspect of T12 vertebral body associated with mixed lytic and sclerotic area on axial image 129. Stable non FDG avid dense sclerotic findings in L1-S1 vertebral bodies and posterior elements, and sharply circumscribed sclerotic lesions in the left posterior acetabulum and in a few other bones including thoracic vertebra and left scapula represent sequela of treated metastatic disease. There are stable changes after L2-L5 vertebroplasty. There is stable hypometabolism in the lumbar spine and in the sacrum for clinical correlation with prior radiation. Peripheral linear uptake of 3.5 SUV in hypertrophic left L4-L5 facet is compatible with benign degenerative finding (series 301, image 35). Soft tissues: No abnormal uptake. Status post right mastectomy with right breast implant in place. Stable edema in the right arm suggestive of lymphedema. METRICS: Mediastinal blood pool: Max SUV of 3.1, mean SUV of 2.9 Liver uptake: Max SUV of 3.7, mean SUV of 3 PET/PET skull to thigh SUBS [id number] IMPRESSION: In comparison with 02/19/2025 there is mild metabolic response to treatment not meeting PERCIST criteria for partial response with decrease in uptake in small bone metastases in the pelvis with no new or progressive FDG avid findings. No new findings to account for the thoracic back pain.
[2025-10-12 13:16] LABS: Hematocrit 36.3 % (36-47); Hemoglobin 11.40 g/dL (11.27-16.99); Mean Corpuscular HGB Conc 31.4 g/dL (30-55); Mean Corpuscular Hemoglobin 29.5 pg (27-33); Mean Corpuscular Volume 94.0 fl (85-98); Nucleated Red Blood Cells % 0 %; Platelet Count 295 10^3/cmm (157-399); Red Blood Count 3.86 10^6/uL (3.85-5.65); White Blood Count 6.44 10^3/uL (3.29-11.43)
[2025-10-12 13:41] LABS: Alanine Aminotransferase 18 U/L (0-33); Albumin Level 4.0 g/dL (3.5-5.2); Alkaline Phosphatase 69 U/L (35-105); Anion Gap 16.3 (5-19); Aspartate Amino Transferase 17 U/L (0-32); Blood Urea Nitrogen 22 mg/dL (8-23); CA 15-3 29.4 U/mL (0-25); Calcium 9.4 mg/dL (8.5-10.5); Carbon Dioxide 25 mmol/L (22-29); Chloride 102 mmol/L (98-107); Globulin 2.8 g/dL (1.3-4.6); Glucose 118 mg/dL (65-115); Osmolality Calculated 292 mOsm/kg (285-295); Potassium 4.3 mmol/L (3.5-5.1); Sodium 139 mmol/L (136-145); Total Protein 6.8 g/dL (6.6-8.7)
[2025-10-19] MEDS: denosumab 120 mg SDV (Infusion Clinic Only) SUBCUT (09:41)
== END 2025-10-27 23:59 | disposition home or self-care (01) ==
PROVIDERS: Internal Medicine Medical Oncology; Visit Provider Nurse Practitioner Family
DX: C79.51 Secondary malignant neoplasm of bone; Z79.899 Other long term (current) drug therapy; Z53.9 Procedure and treatment not carried out, unspecified reason
CPT/HCPCS: 36415; 78815; 80053; 85025; 86300; 96372; 99214; A9552; J0897